=== PATIENT | female | born 1965 | race Caucasian/White ===

== ENCOUNTER 2021-03-01 21:22 | Emergency (ER) | payer OTHER, SELFPAY ==
[2021-03-01 21:30] VITALS: BP 111/51; BP 156/72; PULSE 67; PULSE 70; RESP 18; TEMP 36.4; O2SAT 98; O2SAT 99; BMI 34.7
--- NOTE | 2021-03-01 21:50 | ECG_ITS ---
Test Reason : SYNCOPE Blood Pressure : / mmHG Vent. Rate : 066 BPM Atrial Rate : 066 BPM P-R Int : 150 ms QRS Dur : 084 ms QT Int : 432 ms P-R-T Axes : 067 090 052 degrees QTc Int : 452 ms Normal sinus rhythm Rightward axis Borderline ECG No previous ECGs available Referred By: Mamie Wolfe Electronically Signed By:VICTORIA HAMMOND MD
--- NOTE | 2021-03-01 22:30 | ED_ITS ---
HPI - Syncope General Chief Complaint: Syncope Stated Complaint: syncope Time Seen by Provider: 03/01/21 21:50 Source: patient Mode of arrival: EMS History of Present Illness HPI narrative: This is a 56-year-old female with history of type 1 diabetes and hypertension who presents with having passed out in her kitchen. Patient is unsure if she hit her head but denies any blood thinner use. Patient states that she has been caring for her who was recently diagnosed with pancreatic cancer stage IV, she states she has not been drinking a lot of fluids, but denies any associated fevers, chills, speech/ visual/ hearing changes with this event and denies any unilateral weakness/numbness /tingling. Patient does states that immediately after her passing out episode she had 2-3 episodes of vomiting that have since stopped. She denies any abdominal pain, diarrhea, urinary pain/ burning/frequency. Related Data Previous Rx's Medication Instructions Recorded nitrofurantoin monohyd/m-cryst 100 mg PO Q12H 7 Days #14 cap 03/02/21 [Macrobid] Allergies Allergy/AdvReac Type Severity Reaction Status Date / Time codeine [CODEINE] AdvReac Mild NAUSEA & Verified 03/01/21 21:36 VOMITING Review of Systems Review of Systems: Pertinent positives and negatives as stated in HPI 10 point review of systems is otherwise negative. PMFSH Past Medical History Source: nursing notes reviewed Medical History Diabetes High cholesterol HTN (hypertension) Social History Social History Advance Directives: No Advance Directives Information Provided: Yes Patient : No Physical Exam Vital Signs: Vital Signs: Last Vital Signs Temp 97.8 F 03/02/21 00:00 Pulse 77 03/02/21 00:25 Resp 16 03/02/21 00:00 BP 178/69 H 03/02/21 00:25 Pulse Ox 99 03/02/21 00:00 Body Mass Index 34.7 VITAL SIGNS: Reviewed. GENERAL: Well developed, well nourished, in no acute distress. HEAD: Normocephalic/atraumatic, EYES: PERRLA, EOMI intact without pain, no nystagmus/pallor/icterus noted EARS: Ext canals without abnormality, TMs non-bulging and non-erythematous NOSE: Nares patent bilateral OROPHARYNX: no oral lesions noted, posterior pharynx clear and non-erythematous without noted tonsillar enlargement/erythema/exudates NECK: Supple, no adenopathy LUNGS: Normal breath sounds. No adventitious sounds or accessory muscle use. SpO2<98> CARDIOVASCULAR: Regular rate and rhythm without noted murmurs, no JVD or lower extremity edema. ABDOMEN: Soft, non-tender, non-distended with bowel sounds. MUSCULOSKELETAL: No tenderness, deformities, or effusions noted on gross inspection. EXTREMITIES: No cyanosis, clubbing or edema. SKIN: Inspection of the skin reveals no rashes, ulcerations, jaundice, pallor, or petechiae. NEUROLOGIC: Alert and oriented x 4. Strength and sensation to light touch were grossly intact x 4 , no facial asymmetry, no pronator drift, cranial nerves 2-12 are grossly intact. Course Course Course Narrative: This is a 56-year-old female with history and clinical presentation most consistent with vasovagal episode, but will rule out evidence of infectious/ anemia / arrhythmia in etiology. On review of all investigations and re-evaluation findings are consistent with a UTI and leukocytosis without left shift is likely reactive secondary to patient's vasovagal syncopal episode. All results and findings were discussed with the patient at bedside and she is feeling somewhat better after receiving IV fluid resuscitation. Patient otherwise discharged home in stable condition with remaining course of antibiotics and instructions to follow-up with her [facility] provider. MDM - Syncope Lab Data Result diagrams: 03/01/21 23:37 03/01/21 23:37 Labs: Lab Results 03/01/21 03/01/21 03/01/21 Range/Units 23:37 23:37 23:37 WBC 13.1 H (4.8-10.8) X10*3/uL RBC 4.15 L (4.20-5.50) X10*6/uL Hgb 13.1 (12.0-16.0) g/dl Hct 38.3 (37-47) % MCV 92.3 (80-98) fL MCH 31.6 (27.0-33.0) pg MCHC 34.2 (31.0-35.0) g/dl RDW 13.2 (11.0-16.0) % Plt Count 234 (160-400) X10*3/uL MPV 10.9 (9.4-12.3) fL Immature Gran % (Auto) 0.4 (0.0-0.4) % Neut % (Auto) 69.8 (45-73) % Lymph % (Auto) 20.0 (20-40) % [place] % (Auto) 8.4 (2-11) % Eos % (Auto) 0.8 (0-4) % Baso % (Auto) 0.6 (0-2) % Lymph # (Auto) 2.6 (1.2-4.9) X10*3/uL [place] # (Auto) 1.1 (0.1-1.2) X10*3/uL Eos # (Auto) 0.1 (0.0-0.4) X10*3/uL Baso # (Auto) 0.1 (0.0-0.2) X10*3/uL Abs Immat Gran (auto) 0.05 H (0.00-0.03) X10*3/uL Absolute Neuts (auto) 9.2 H (2.0-8.3) X10*3/uL Absolute Nucleated RBC 0.000 (0.0-0.012) X10*3/uL Nucleated RBC % (auto) 0.0 (0.0-0.2) /100WBC PT 11.8 (10.8-13.0) SEC INR 1.0 (0.9-1.1) Sodium 138 (135-145) mmol/L Potassium 3.4 (3.3-5.1) mmol/L Chloride 102 (96-108) mmol/L Carbon Dioxide 28 (22-29) mmol/L Anion Gap 11 L (12-20) BUN 12 (9-16) mg/dL Creatinine 0.84 (0.5-1.4) mg/dL Estim Creat Clear Calc 74.3 Estimated GFR > 60 Random Glucose 61 (60-115) mg/dL Calcium 9.6 (8.4-10.2) mg/dL Total Bilirubin 0.5 (0.0-1.0) mg/dL AST 17 (5-31) U/L ALT 12 (0-31) U/L Alkaline Phosphatase 77 (39-117) U/L Troponin I High Sens (<3.5-17.0) ng/L Total Protein 6.6 (6.5-8.0) g/dL Albumin 4.2 (3.5-5.0) g/dL Lipase 20 (8-78) U/L Urine Color Urine Appearance Urine pH (5.0-8.0) Ur Specific [place] (1.005-1.025) Urine Protein (NEG-TRACE) MG/DL Urine Glucose (UA) (NEG) MG/DL Urine Ketones (NEG) MG/DL Urine Blood (NEG) Urine Nitrite (NEG) Ur Leukocyte Esterase (NEG) Urine RBC (0) /HPF Urine WBC (0-4) /HPF Ur Squamous Epith Cells /LPF Urine Bacteria /LPF Urine Mucus /LPF Urine Opiates Screen (Not Detect) Ur Barbiturates Screen (Not Detect) Ur Phencyclidine Scrn (Not Detect) Ur Amphetamines Screen (Not Detect) U Benzodiazepines Scrn (Not Detect) Urine Cocaine Screen (Not Detect) U Marijuana (THC) Screen (Not Detect) Acetone, Qual Negative (Negative) 03/01/21 03/01/21 03/01/21 Range/Units 23:37 23:39 23:39 WBC (4.8-10.8) X10*3/uL RBC (4.20-5.50) X10*6/uL Hgb (12.0-16.0) g/dl Hct (37-47) % MCV (80-98) fL MCH (27.0-33.0) pg MCHC (31.0-35.0) g/dl RDW (11.0-16.0) % Plt Count (160-400) X10*3/uL MPV (9.4-12.3) fL Immature Gran % (Auto) (0.0-0.4) % Neut % (Auto) (45-73) % Lymph % (Auto) (20-40) % [place] % (Auto) (2-11) % Eos % (Auto) (0-4) % Baso % (Auto) (0-2) % Lymph # (Auto) (1.2-4.9) X10*3/uL [place] # (Auto) (0.1-1.2) X10*3/uL Eos # (Auto) (0.0-0.4) X10*3/uL Baso # (Auto) (0.0-0.2) X10*3/uL Abs Immat Gran (auto) (0.00-0.03) X10*3/uL Absolute Neuts (auto) (2.0-8.3) X10*3/uL Absolute Nucleated RBC (0.0-0.012) X10*3/uL Nucleated RBC % (auto) (0.0-0.2) /100WBC PT (10.8-13.0) SEC INR (0.9-1.1) Sodium (135-145) mmol/L Potassium (3.3-5.1) mmol/L Chloride (96-108) mmol/L Carbon Dioxide (22-29) mmol/L Anion Gap (12-20) BUN (9-16) mg/dL Creatinine (0.5-1.4) mg/dL Estim Creat Clear Calc Estimated GFR Random Glucose (60-115) mg/dL Calcium (8.4-10.2) mg/dL Total Bilirubin (0.0-1.0) mg/dL AST (5-31) U/L ALT (0-31) U/L Alkaline Phosphatase (39-117) U/L Troponin I High Sens < 3.5 (<3.5-17.0) ng/L Total Protein (6.5-8.0) g/dL Albumin (3.5-5.0) g/dL Lipase (8-78) U/L Urine Color YELLOW Urine Appearance CLEAR Urine pH 7.0 (5.0-8.0) Ur Specific [place] <= 1.005 (1.005-1.025) Urine Protein NEG (NEG-TRACE) MG/DL Urine Glucose (UA) 500 H (NEG) MG/DL Urine Ketones NEG (NEG) MG/DL Urine Blood TRACE (NEG) Urine Nitrite NEG (NEG) Ur Leukocyte Esterase TRACE H (NEG) Urine RBC 1-4 (0) /HPF Urine WBC 1-4 (0-4) /HPF Ur Squamous Epith Cells 2+ /LPF Urine Bacteria 2+ /LPF Urine Mucus 2+ /LPF Urine Opiates Screen Not Detected (Not Detect) Ur Barbiturates Screen Not Detected (Not Detect) Ur Phencyclidine Scrn Not Detected (Not Detect) Ur Amphetamines Screen Not Detected (Not Detect) U Benzodiazepines Scrn Not Detected (Not Detect) Urine Cocaine Screen Not Detected (Not Detect) U Marijuana (THC) Screen POSITIVE H (Not Detect) Acetone, Qual (Negative) ECG Data Attestation: I personally reviewed and interpreted this ECG as follows: Prior ECG tracings: not available for review Interpretation: Normal sinus rhythm, HR - 66, no evidence of acute ischemia, NE / QRS/ QTC are within normal limits. Discharge Plan Discharge Clinical Impression: Vasovagal syncope, UTI (urinary tract infection) Patient Disposition: Home, Self-Care Instructions: Urinary Tract Infection in Women (ED), Syncope (ED) Additional Instructions: 1 Resume all home medications as prescribed. 2. Follow-up with your primary care provider in the next 2-3 days for re- evaluation. Return to the ER for acute worsening of your symptoms. Prescriptions: New nitrofurantoin monohyd/m-cryst [Macrobid] 100 mg capsule 100 mg PO Q12H 7 Days Qty: 14 RF: 0 Referrals: John Griffiths MD [Primary Care Provider] - 2 days ( Re-evaluation after seen in the ER for vasovagal syncopal episode and diagnosed with UTI.)
[2021-03-01] MEDS: 0.9 % Sodium Chloride 2,000 ML 999 ML IV (23:40)
[2021-03-01 23:44] LABS: Basophils Absolute Auto 0.1 X10*3/uL (0.0-0.2); Basophils Percent Auto 0.6 % (0-2); Eosinophils Absolute Auto 0.1 X10*3/uL (0.0-0.4); Eosinophils Percent Auto 0.8 % (0-4); Hematocrit 38.3 % (37-47); Hemoglobin 13.1 g/dl (12.0-16.0); Imm Gran Abs Auto 0.05 X10*3/uL (0.00-0.03); Imm Gran Pct Auto 0.4 % (0.0-0.4); Lymphocytes Absolute Auto 2.6 X10*3/uL (1.2-4.9); Mean Corpuscular HGB Conc 34.2 g/dl (31.0-35.0); Mean Corpuscular Hemoglobin 31.6 pg (27.0-33.0); Mean Corpuscular Volume 92.3 fL (80-98); Mean Platelet Volume 10.9 fL (9.4-12.3); Monocytes Absolute Auto 1.1 X10*3/uL (0.1-1.2); Monocytes Percent Auto 8.4 % (2-11); Neutrophils Absolute Auto 9.2 X10*3/uL (2.0-8.3); Neutrophils Percent Auto 69.8 % (45-73); Platelet Count 234 X10*3/uL (160-400); Red Blood Count 4.15 X10*6/uL (4.20-5.50); Red Cell Distribution Width 13.2 % (11.0-16.0); White Blood Count 13.1 X10*3/uL (4.8-10.8)
[2021-03-01 23:46] LABS: MANUAL DIFF FLAG NO
[2021-03-01 23:47] LABS: Glucose Urine UA 500 MG/DL (NEG); Leukocyte Esterase Urine TRACE (NEG); Nitrite Urine NEG (NEG); Specific Gravity - Urine <= 1.005 (1.005-1.025); UACC Culture Trigger YES; Urine Blood TRACE (NEG); Urine Ketones NEG (NEG); Urine Protein NEG (NEG-TRACE)
[2021-03-01 23:52] LABS: Appearance Urine CLEAR; Color Urine YELLOW
[2021-03-01 23:54] LABS: Prothrombin Time 11.8 SEC (10.8-13.0)
[2021-03-01 23:55] LABS: Bacteria Urine 2+ /LPF; Mucus Urine 2+ /LPF; Squamous Epithelial Cell Urine 2+ /LPF
[2021-03-02] VITALS: BP 177/69; PULSE 77; RESP 16; TEMP 36.6; O2SAT 99
[2021-03-02 00:02] LABS: Acetone, serum QL Negative (Negative)
[2021-03-02 00:11] LABS: Amphetamine Screen Urine Not Detected (Not Detect); Barbiturates, Urine Not Detected (Not Detect); Benzodiazepines Screen Urine Not Detected (Not Detect); Cannabinoid Screen Urine POSITIVE (Not Detect); Cocaine Screen Urine Not Detected (Not Detect); Opiate Screen Urine Not Detected (Not Detect); Phencyclidine Screen Urine Not Detected (Not Detect)
[2021-03-02 00:13] LABS: Alanine Aminotransferase 12 U/L (0-31); Albumin Level 4.2 g/dL (3.5-5.0); Alkaline Phosphatase 77 U/L (39-117); Anion Gap 11 (12-20); Aspartate Amino Transferase 17 U/L (5-31); Bilirubin Total 0.5 mg/dL (0.0-1.0); Blood Urea Nitrogen 12 mg/dL (9-16); Calcium 9.6 mg/dL (8.4-10.2); Carbon Dioxide 28 mmol/L (22-29); Chloride 102 mmol/L (96-108); Creatinine Clr Calc Pharmacy 74.3; Estimated Glomerular Filt Rate > 60; Glucose Random 61 mg/dL (60-115); Lipase 20 U/L (8-78); Potassium 3.4 mmol/L (3.3-5.1); Sodium 138 mmol/L (135-145); Total Protein 6.6 g/dL (6.5-8.0)
[2021-03-02 00:14] LABS: Troponin-I High Sensitivity < 3.5 ng/L (<3.5-17.0)
[2021-03-02 00:21] VITALS: BP 157/67; PULSE 73
[2021-03-02 00:23] VITALS: BP 181/78; PULSE 74
[2021-03-02 00:25] VITALS: BP 178/69; PULSE 77
[2021-03-02] MEDS: Nitrofurantoin Monohyd/M-Cryst 100 MG CAPSULE PO (01:59)
== END 2021-03-02 02:10 | disposition home or self-care (01) ==
PROVIDERS: Emergency Provider Student in an Organized Health Care Education/Training Program; PCP Internal Medicine
DX: R55 Syncope and collapse (principal); N39.0 Urinary tract infection, site not specified; E10.9 Type 1 diabetes mellitus without complications; I10 Essential (primary) hypertension
CPT/HCPCS: 36415; 80053; 80307; 81001; 81003; 82009; 83690; 84484; 85025; 85610; 87086; 93005; 96360; 99284

== ENCOUNTER 2021-05-30 08:40 | Outpatient (REF) | payer OTHER, SELFPAY ==
--- NOTE | ~2021-05-30 | MM_ITS ---
EXAMINATION: MM SCREENING DIGITAL BREAST TOMOSYNTHESIS, BILATERAL CLINICAL INFORMATION: Screening. Asymptomatic. The lifetime risk of breast cancer based on the Tyrer-Cuzick Model is 9%. COMPARISON: Mammography: 02/16/2020, 02/10/2019, 12/18/2017 TECHNIQUE: Digital breast tomosynthesis is performed in both the craniocaudal and mediolateral oblique views along with computer-aided detection (CAD). Synthesized 2D images are generated from the tomosynthesis. FINDINGS: There are scattered areas of fibroglandular density (ACR BI-RADS breast composition Category b). There are no significant masses, abnormal calcifications, or other abnormalities. There are 2 biopsy clip markers central mid left breast, 1 overlying a stable circumscribed nodule. Small circumscribed dermal lesion overlies the posterior outer left breast on MLO view. The axilla are unremarkable. MM/MM tomosynthesis screening BI IMPRESSION: No mammographic evidence of malignancy. ASSESSMENT: BI-RADS 2: Benign RECOMMENDATION: Routine annual mammography screening. This patient's information was entered into a reminder system with a target due date for their next mammogram.
== END 2021-05-30 08:41 | disposition home or self-care (01) ==
LOC: HO.MAMMO 08:40
PROVIDERS: Visit Provider Internal Medicine
DX: Z12.31 Encounter for screening mammogram for malignant neoplasm of breast (principal)
CPT/HCPCS: 77063; 77067

== ENCOUNTER 2022-06-05 07:50 | Outpatient (REF) | payer OTHER, SELFPAY ==
--- NOTE | ~2022-06-05 | MM_ITS ---
EXAMINATION: MM SCREENING DIGITAL BREAST TOMOSYNTHESIS, BILATERAL CLINICAL INFORMATION: Screening. Asymptomatic. The lifetime risk of breast cancer based on the Tyrer-Cuzick Model is 8%. COMPARISON: Mammography: 05/30/2021, 02/16/2020, 02/10/2019 TECHNIQUE: Digital breast tomosynthesis is performed in both the craniocaudal and mediolateral oblique views along with computer-aided detection (CAD). Synthesized 2D images are generated from the tomosynthesis. FINDINGS: There are scattered areas of fibroglandular density (ACR BI-RADS breast composition Category b). Parenchymal pattern is similar to prior studies. No developing density or interval architectural abnormality. Left breast has 2 biopsy clip markers and a stable nodule central breast similar to prior studies. Right breast has calcifications anterior 11:30 position, questionably increased versus digital processing artifact pseudo calcification. Patient will be recalled for additional imaging on the right with magnification views. The axilla and skin contours are unremarkable. MM/MM tomosynthesis screening BI IMPRESSION: Right: -Fine increased calcifications versus digital processing artifact pseudo calcification 11:30. Left: -No mammographic evidence of malignancy. ASSESSMENT: BI-RADS 0: Incomplete - Need Additional Imaging Evaluation RECOMMENDATION: 1. Additional views of the right breast (magnification CC, magnification ML). 2. Radiology department staff will contact the patient for additional imaging. This patient's information was entered into a reminder system with a target due date for their next mammogram.
== END 2022-06-05 07:51 | disposition home or self-care (01) ==
LOC: HO.MAMMO 07:50
PROVIDERS: Visit Provider Internal Medicine
DX: Z12.31 Encounter for screening mammogram for malignant neoplasm of breast (principal)
CPT/HCPCS: 77063; 77067

== ENCOUNTER 2022-06-18 09:09 | Outpatient (REF) | payer OTHER, SELFPAY ==
--- NOTE | ~2022-06-18 | MM_ITS ---
EXAMINATION: MM DIAGNOSTIC DIGITAL MAMMOGRAPHY, RIGHT CLINICAL INFORMATION: Recall from screening for calcifications upper outer right breast. TC score 8%. COMPARISON: Mammography: 06/05/2022, 05/30/2021, 02/16/2020 TECHNIQUE: Digital mammography is performed in the following views: Magnification CC, magnification ML x2. FINDINGS: There are scattered areas of fibroglandular density (ACR BI-RADS breast composition Category b). The additional magnification views show a few punctate uniform calcifications adjacent to 2 larger coarse calcifications in the area of interest circular lesion arranged on CC view. There are a few faint calcifications more laterally. Results are discussed with the patient at time of visit. The calcifications for recall may represent early fibroadenomatous change. In addition, patient describes recent significant trauma right chest with upper extremity fracture and right breast ecchymosis October 2021. Calcifications are probably benign and will be reassessed again in 6 months to include magnification views. MM/MM added views RT IMPRESSION: Probable benign calcifications upper outer right breast. ASSESSMENT: BI-RADS 3: Probably Benign RECOMMENDATION: Diagnostic right mammography in 6 months. This patient's information was entered into a reminder system with a target due date for their next mammogram.
== END 2022-06-18 09:10 | disposition home or self-care (01) ==
LOC: HO.MAMMO 09:09
PROVIDERS: PCP Internal Medicine; Visit Provider Internal Medicine
DX: R92.1 Mammographic calcification found on diagnostic imaging of breast (principal)
CPT/HCPCS: 77065

== ENCOUNTER 2022-12-18 14:10 | Outpatient (REF) | payer OTHER, SELFPAY ==
--- NOTE | ~2022-12-18 | MM_ITS ---
EXAMINATION: MM DIAGNOSTIC DIGITAL BREAST TOMOSYNTHESIS, RIGHT CLINICAL INFORMATION: Six-month follow-up right breast calcifications. The lifetime risk of breast cancer based on the Tyrer-Cuzick Model is 8.5%. COMPARISON: Mammography: 06/18/2022 and studies dating back to 01/11/2014. TECHNIQUE: Digital breast tomosynthesis is performed in both the craniocaudal and mediolateral oblique views along with computer-aided detection (CAD). Synthesized 2D images are generated from the tomosynthesis. Additional spot magnification views of the right breast in craniocaudal and 90 degree mediolateral views performed. FINDINGS: There are scattered areas of fibroglandular density (ACR BI-RADS breast composition Category b). There are no new significant masses, abnormal calcifications, or other abnormalities. Calcifications about the upper outer aspect of the right breast are stable. Results are provided to the patient at time of visit by the technologist. MM/MM tomosynthesis diagnostic RT IMPRESSION: There are no significant changes from prior study. ASSESSMENT: BI-RADS 3: Probably Benign. RECOMMENDATION: Diagnostic mammography in 6 months. Magnification views of the right breast at time of study. This patient's information was entered into a reminder system with a target due date for their next mammogram.
== END 2022-12-18 14:11 | disposition home or self-care (01) ==
LOC: HO.MAMMO 14:10
PROVIDERS: Visit Provider Internal Medicine
DX: R92.1 Mammographic calcification found on diagnostic imaging of breast (principal)
CPT/HCPCS: 77061; 77065

== ENCOUNTER 2023-07-10 09:13 | Outpatient (REF) | payer OTHER, SELFPAY ==
--- NOTE | ~2023-07-10 | MM_ITS ---
EXAMINATION: MM DIAGNOSTIC DIGITAL BREAST TOMOSYNTHESIS, BILATERAL CLINICAL INFORMATION: 6 month (second) Follow-up probably benign calcifications right breast upper outer quadrant, anterior depth. COMPARISON: Mammography: 12/18/2022, 06/18/2022, 06/05/2022, 05/30/2021, and dating back to 2018. TECHNIQUE: Digital breast tomosynthesis is performed in both the craniocaudal and mediolateral oblique views along with computer-aided detection (CAD). Synthesized 2D images are generated from the tomosynthesis. In addition to standard views, 2-D spot magnification CC and MLO views were performed of the right breast. FINDINGS: There are scattered areas of fibroglandular density (ACR BI-RADS breast composition Category b). Calcifications in the anterior one third right breast, upper outer quadrant, are complete in an entirely unchanged and has a morphology suggesting benign etiology, with some large coarse forms, and tiny punctate round forms. These are unchanged in size and morphology and number since the prior examination. 1 year follow-up recommended at this point to ensure stability for a two-year time. Otherwise, there are 2 benign biopsy clips in the central left breast. There are no suspicious masses, suspicious grouped calcifications, or areas of architectural distortion in either breast. The parenchymal pattern is stable from prior exams. MM/MM tomosynthesis diagnostic BI IMPRESSION: There are no significant changes from prior study. There are no findings suspicious for malignancy in either breast. There are stable probably benign calcifications in the upper outer right breast, anterior one third. 1 year follow-up diagnostic mammography recommended to ensure stability, to include standard magnification views. ASSESSMENT: BI-RADS BI-RADS 3 - Probably benign finding(s) - 12 month follow-up suggested RECOMMENDATION: 12 month diagnostic follow up Results were provided to the patient at time of visit by the technologist. This patient's information was entered into a reminder system with a target due date for their next mammogram.
== END 2023-07-10 09:14 | disposition home or self-care (01) ==
LOC: HO.MAMMO 09:13
PROVIDERS: PCP Internal Medicine; Visit Provider Internal Medicine
DX: R92.1 Mammographic calcification found on diagnostic imaging of breast (principal)
CPT/HCPCS: 77062; 77066

== ENCOUNTER → 2023-07-10 09:30 | Outpatient (BNV) | payer OTHER, SELFPAY | PROVIDERS: PCP Internal Medicine; Visit Provider Radiology Diagnostic Radiology | DX: R92.1 Mammographic calcification found on diagnostic imaging of breast (principal) | CPT/HCPCS: 77062; 77066 ==

== ENCOUNTER 2024-04-20 14:55 | Outpatient (AMB) | payer OTHER, SELFPAY ==
--- NOTE | 2024-04-20 15:01 | MHC.PC.OV ---
Vital Signs 04/20/24 15:13 04/20/24 15:14 Height 5 ft 2.2 in Weight 202 lb 2 oz BMI 36.7 BP 142/72 H 144/76 H Blood Pressure Location Lt brachial Lt brachial Position Sitting Sitting Respiration 16 Pulse 70 Pulse Source Pulse Oximeter Temp 98.1 F Temp Source Oral Pulse Oximetry (%) 99 Oxygen Delivery Method Room Air Intake Visit Reasons: Establish Care not a transfer Intake Note: New patient visit Allergies codeine [CODEINE] Adverse Reaction (Mild, Verified 04/20/24 15:05) NAUSEA & VOMITING Tobacco use date assessed: 04/20/24 Dental Screening Dental Screen Date: 04/20/24 Did you have a dental visit in the last 12 months?: Yes Did you have a dental problem in the last 6 months where you did not have access to dental care?: No Was dental information given to patient?: Patient has dentist HPI HPI Comments History of Present Illness Details This is a 59-year-old female with a past medical history of type 1 diabetes, diabetic neuropathy, hyperlipidemia, hypertension and obesity presenting to [facility]. She transferred from [facility] because they no longer take her insurance. The patient's sister is also being seen today who is a nurse in [facility] pulmonology. Patient says the last several years have been difficult. Her from pancreatic cancer after 2 years fighting the illness. This was during the pandemic. She also broke her right shoulder a couple years ago after a fall. The patient was diagnosed with type 1 diabetes 32 years ago. Her current regimen is Lantus 24 units at night and NovoLog sliding scale 14-18 units with meals. Her last hemoglobin A1c was 8.3% per patient. Patient says this is usually her baseline. She denies hypoglycemic episodes within the past month. Her average glucose during the past week was 150. She has eye exams regularly, and she denies retinopathy. No macrovascular complications. She has neuropathy in her hands and feet. She was followed by endocrinology at [facility]. She needs a referral to a new public works commissioner. She uses a fingerstick glucometer. Patient says she is stubborn, and she is not interested in CGM right now. She has tried pumps a couple of times over the years, but she prefers her current regimen. Hypertension is treated with lisinopril which was increased to 40 mg after her last visit at [place]. Her blood pressure today is 144/76. This has improved. She does not want make further medication changes right now. Hyperlipidemia is treated with 40 mg of simvastatin. Anxiety is treated with sertraline. She thinks she is taking half a 100 mg tablet. She has been tapering off of it over the past 2 and half months. She takes Xanax very infrequently. She endorses a red itchy spot on the back of her right lower leg that has been there all summer. She is unsure if it has gotten larger. She has not tried medications for it. Patient says mammogram is up-to-date. She has never had a colonoscopy. She is thinking about it. We also discussed Cologuard. She defers further discussion until her follow-up visit. ROS: Constitutional: No unexplained weight loss, fever, chills, fatigue or night sweats. Eyes: No vision changes Respiratory: No shortness of breath, cough or sputum production. Cardiovascular: No chest pain, chest pressure or chest discomfort. No palpitations or pedal edema. Gastrointestinal: No anorexia, nausea, vomiting or diarrhea. No abdominal pain or blood in stool. Neurologic: No headache, dizziness, syncope Endocrine: No cold or heat intolerance. No polyuria or polydipsia. Skin: approximately 3 inch annual erythematous lesion with some central clearing and scaly borders on the back of the right lower leg Psychiatric: No depression or anxiety. No SI/HI. Physical exam: Constitutional: Alert, in no distress. Head: Normocephalic. Eyes: Pupils are equal, round and reactive to light. Extraocular muscles intact. Neck: Supple, Full range of motion. No lymphadenopathy. Respiratory: Clear to auscultation. Cardiovascular: S1 S2 regular. No murmurs. Extremities: Warm and well perfused. No clubbing, cyanosis or edema. Psychiatric: Normal mood and affect [facility] Medical History (Updated 04/21/24 @ 09:32 by SUNITA Mathis) Skin rash Pure hypercholesterolemia Obesity with serious comorbidity Diabetes, polyneuropathy Anxiety Type I diabetes with complications Arthritis HTN (hypertension) Family History (Updated 04/21/24 @ 09:28 by SUNITA Mathis) Mother HTN (hypertension) Thyroid disorder Father HTN (hypertension) Cardiovascular disease Clotting disorder Stomach cancer Alcoholism Sister Primary biliary cholangitis Other High cholesterol Social History (Updated 04/20/24 @ 15:02 by Shyla Mccarty [facility]) Housing: House Patient Tobacco Use Status: Current everyday Tobacco user Cigarette Packs Per Day: 1 Years Smoked: 40 e-Cigarette/Vaping Use: Never Used Second Hand Smoke Exposure: No service: No Current occupational status: employed 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 1. Little interest or pleasure in doing things: several days 2. Feeling down, depressed, or hopeless: several days 3. Trouble falling or staying asleep, or sleeping too much: several days 4. Feeling tired or having little energy: several days 5. Poor appetite or overeating: several days 6. Feeling bad about yourself - or that you are a failure or have let yourself or your family down: not at all 7. Trouble concentrating on things, such as reading the newspaper or watching television: several days 8. Moving or speaking so slowly that other people could have noticed. Or the opposite - being so fidgety or restless that you have been moving around a lot more than usual: not at all 9. Thoughts that you would be better off or of hurting yourself in some way: not at all Total score: 6 Depression Screening Interpretation: Positive Depression Screening Done: Yes 03080 - PHQ-9 Billing: Yes Source: Developed by Drs. Taiwo Myers, Valentine Buckley, Jd Garcia and colleagues, with an educational rebeca from [employer]. Thrive Questionnaire Date Thrive assessed: 04/20/24 I am a: Patient What is your living situation today?: I have a steady place to live Within the past 12 months, did the food you bought not last and you didn't have the money to get more?: Never true Within the past 12 months, did you worry whether your food would run out before you got money to buy more?: Never true Do you have trouble paying for medicines?: No Do you have trouble getting transportation to medical appointments?: No Do you have trouble paying your heating and electricity bill?: No Do you have trouble taking care of your child, family member or friend?: No Do you have trouble with day-to-day activities such as bathing, preparing meals, shopping, managing finances, etc.?: No Are you currently unemployed and looking for a job?: No Are you interested in more education?: No Please select the resources that you would like help with: None Currently or been in a relationship where the following occur: No concerns reported THRIVE Score: 0 AUDIT C Alcohol Use Questionnaire (AUDIT-C) 1. How often do you have a drink containing alcohol?: Monthly or less 2. How many drinks containing alcohol do you have on a typical day when you are drinking?: 1 or 2 3. How often do you have six or more drinks on one occasion?: Never Total Score: 1 JUANITA-7 AMB Questionnaire JUANITA-7 Date JUANITA - 7 assessed: 04/20/24 Feeling nervous, anxious, or on edge: 1 = Several days Not being able to stop or control worryin = Several days Worrying too much about different things: 1 = Several days Trouble relaxin = Several days Being so restless that it is hard to sit still: 1 = Several days Becoming easily annoyed or irritable: 1 = Several days Feeling afraid as if something awful might happen: 1 = Several days Total JUANITA-7 score (0-4 normal; 5-9 mild; 10-14 moderate; 15-21 severe): 7 Source: Developed by Drs. Taiwo Myers, Valentine Buckley, Jd Garcia and colleagues, with an educational rebeca from [employer]. JUANITA-7 Assessment Billing JUANITA-7 Assessment Tool: JUANITA-7 Assessment 29424 Physical exam (Primary Care) Vital Signs: Last Vital Signs Temp 98.1 F 04/20/24 15:13 Pulse 70 04/20/24 15:13 Resp 16 04/20/24 15:13 BP 144/76 H 04/20/24 15:14 Pulse Ox 99 04/20/24 15:13 Oxygen Delivery Method Room Air 04/20/24 15:13 BMI result Body Mass Index 36.7 Tobacco/Smoking Status: Tobacco use Status Tobacco use date assessed 04/20/24 04/20/24 15:04 Patient Tobacco Use Status Current everyday Tobacco 04/20/24 15:16 e-Cigarette/Vaping Use Never Used 04/20/24 15:04 PHQ-9: PHQ-9 Score PHQ-9: Total score 6 04/20/24 16:53 Depression Screening Interpretation: Positive Thrive Assessment: Date of Thrive Assessment Date Thrive assessed 04/20/24 04/20/24 15:34 Currently or been in a relationship where the following occur: No concerns reported Assessment and Plan Assessment & Plan (1) Type I diabetes with complications: Code(s): E10.8 - Type 1 diabetes mellitus with unspecified complications Plan: Suboptimal control of longstanding type 1 diabetes. See above discussion regarding CGM. The patient says she may be persuaded to try this, but she deferred today. Referred to Kylah Contreras NP, at [facility] endocrinology. Continue current medication regimen. Diabetic labs ordered. (2) HTN (hypertension): Code(s): I10 - Essential (primary) hypertension Qualifiers: Hypertension type: primary hypertension Qualified Code(s): I10 - Essential (primary) hypertension Plan: Suboptimal BP. Patient declines additional medication. Continue lisinopril 40 mg daily. Agree to reassess in 3 months time. She will work on lifestyle modifications and weight loss. Recommended low-sodium diet and avoidance of caffeine. (3) Anxiety: Code(s): F41.9 - Anxiety disorder, unspecified Plan: She will call or send via patient portal the confirm dose of sertraline she is taking so I can give her further instructions on how to taper this medication. Reminded not to stop it abruptly. She did not need a refill on Xanax which she uses infrequently. (4) Pure hypercholesterolemia: Code(s): E78.00 - Pure hypercholesterolemia, unspecified Plan: Continue simvastatin. Check lipid profile. Patient cannot fast for labs. (5) Skin rash: Code(s): R21 - Rash and other nonspecific skin eruption Plan: Possible new eczema versus tinea corporis. Trial of Lotrisone twice daily for 14 days. If it does not resolve she will contact the office. Plan Follow-up in 3 months. Orders: Orders Lipid Panel 04/20/24 E11.9 - Type 2 diabetes mellitus without complications, E78.00 - Pure hypercholesterolemia, unspecified, I10 - Essential (primary) hypertension Hemoglobin A1c 04/20/24 E11.9 - Type 2 diabetes mellitus without complications, E78.00 - Pure hypercholesterolemia, unspecified, I10 - Essential (primary) hypertension Complete Blood Count no Diff 04/20/24 E11.9 - Type 2 diabetes mellitus without complications, E78.00 - Pure hypercholesterolemia, unspecified, I10 - Essential (primary) hypertension Comprehensive Met. Panel 04/20/24 E11.9 - Type 2 diabetes mellitus without complications, E78.00 - Pure hypercholesterolemia, unspecified, I10 - Essential (primary) hypertension TSH reflex Free T4 04/20/24 E11.9 - Type 2 diabetes mellitus without complications, E66.9 - Obesity, unspecified, E78.00 - Pure hypercholesterolemia, unspecified, I10 - Essential (primary) hypertension Vitamin D 1,25 dihydroxy 04/20/24 E11.9 - Type 2 diabetes mellitus without complications, E78.00 - Pure hypercholesterolemia, unspecified, I10 - Essential (primary) hypertension Referrals Endocrinology Referral E10.8 - Type 1 diabetes mellitus with unspecified complications Medications: New clotrimazole-betamethasone 1-0.05 % 1 appl topical BID 15 grams 0RF 14 days lisinopril 40 mg PO DAILY 90 tabs 3RF Coding Level of Care Code New Pt Level 4 (63382) Complex EM visit Add On G2211 Diagnoses Type I diabetes with complications E10.8 Primary hypertension I10 Hypertension type: primary hypertension Anxiety F41.9 Pure hypercholesterolemia E78.00 Skin rash R21 Additional Codes JUANITA-7 Assessment Billing - JUANITA-7 Assessment Tool: JUANITA-7 Assessment [id number] ([id number])
[2024-04-20 15:13] VITALS: BP 142/72; PULSE 70; RESP 16; TEMP 36.7; O2SAT 99; BMI 36.7
[2024-04-20 15:14] VITALS: BP 144/76
== END 2024-04-20 16:05 | disposition home or self-care (01) ==
PROVIDERS: PCP Physician Assistant Medical; Visit Provider Physician Assistant Medical
DX: E10.8 Type 1 diabetes mellitus with unspecified complications (principal); I10 Essential (primary) hypertension; F41.9 Anxiety disorder, unspecified; E78.00 Pure hypercholesterolemia, unspecified; R21 Rash and other nonspecific skin eruption
CPT/HCPCS: 99204; G2211

== ENCOUNTER 2024-06-22 08:43 | Outpatient (AMB) | payer OTHER, SELFPAY ==
--- NOTE | 2024-06-22 08:53 | A.OFFPC_ITS ---
Vital Signs 06/22/24 08:57 Height 5 ft 2.2 in Weight 195 lb 2 oz BMI 35.5 BP 124/70 Blood Pressure Location Rt brachial Position Sitting Pulse 95 Pulse Source Pulse Oximeter Pulse Oximetry (%) 99 Oxygen Delivery Method Room Air Intake Visit Reasons: Urgent Care / F/U for broken ribs Intake Note: Urgent care follow up Allergies codeine [CODEINE] Adverse Reaction (Mild, Verified 06/22/24 08:55) NAUSEA & VOMITING Tobacco use date assessed: 04/20/24 Dental Screening Dental Screen Date: 04/20/24 HPI HPI Comments History of Present Illness Details This is a 59-year-old female with a past medical history of type 1 diabetes, hypertension, tobacco use disorder, diabetic polyneuropathy and hypercholesterolemia presenting for an urgent care follow up. [facility] for evaluation of a fall that occurred on 06/12/2024. The patient was outside raking and was holding a rake and trash barrel and went to turn when she fell onto her right side. She thinks the rate may have hit her back and ribs. No head injury or loss of consciousness. The radiologist's reading of the x-ray said there was no rib fracture, but the physician said it looked like there were fractures, and the films were reviewed by a different radiologist and read as displaced right posterior 6th and 7th rib fractures. They told her to go to the ER for CT scan, but she declined. She was given a work note to be out until 06/19/2024. 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 She would like to return. Her pain is a 9/10. She was prescribed cyclobenzaprine, tramadol, ibuprofen and gabapentin. She is taking 100 mg of gabapentin 3 times a day. She is not sure it is really helping her. Patient is using an [id number] stool softener due to constipation on medications. She also had to take a laxative 1 day last week. She is a smoker. She has never had a bone density exam. She had a right shoulder fracture a few years ago. She is doing spirometry at home. No cough, wheezing, shortness of breath, fevers, chills or hemoptysis. The patient started smoking at age 13. She has smoked half a pack to a full pack daily since then. She continues to see endocrinology at [facility]. Patient says her blood sugars have been under 200. ROS: Constitutional: No unexplained weight loss, fever, chills, fatigue or night sweats. Respiratory: No shortness of breath, cough or sputum production. Cardiovascular: No chest pain, no pedal edema. Gastrointestinal: No abdominal pain Neurologic: No numbness or tingling, no headache or loss of consciousness. Skin: No redness or bruising. Physical exam: Constitutional: Alert, in no distress. Respiratory: Clear to auscultation. Cardiovascular: S1 S2 regular. No murmurs Neurologic: No focal neurological deficits Musculoskeletal: Tender over the right posterior lower ribs. No edema, erythema or ecchymosis. [facility] Medical History (Updated 06/22/24 @ 09:50 by SUNITA Mathis) Tobacco use disorder Closed traumatic displaced fracture of rib Skin rash Pure hypercholesterolemia Obesity with serious comorbidity Diabetes, polyneuropathy Anxiety Type I diabetes with complications Arthritis HTN (hypertension) Family History (Updated 04/21/24 @ 09:28 by SUNITA Mathis) Mother HTN (hypertension) Thyroid disorder Father HTN (hypertension) Cardiovascular disease Clotting disorder Stomach cancer Alcoholism Sister Primary biliary cholangitis Other High cholesterol Social History (Updated 04/20/24 @ 15:02 by Shyla Mccarty CMA) Housing: House Patient Tobacco Use Status: Current everyday Tobacco user Cigarette Packs Per Day: 1 Years Smoked: 40 e-Cigarette/Vaping Use: Never Used Second Hand Smoke Exposure: No service: No Current occupational status: employed 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 1. Little interest or pleasure in doing things: not at all 2. Feeling down, depressed, or hopeless: several days 3. Trouble falling or staying asleep, or sleeping too much: several days 4. Feeling tired or having little energy: several days 5. Poor appetite or overeating: several days 6. Feeling bad about yourself - or that you are a failure or have let yourself or your family down: not at all 7. Trouble concentrating on things, such as reading the newspaper or watching television: not at all 8. Moving or speaking so slowly that other people could have noticed. Or the opposite - being so fidgety or restless that you have been moving around a lot more than usual: not at all 9. Thoughts that you would be better off or of hurting yourself in some way: not at all Total score: 4 Source: Developed by Drs. Taiwo Myers, Valentine Buckley, Jd Garcia and colleagues, with an educational rebeca from [employer]. Thrive Questionnaire Date Thrive assessed: 06/19/24 I am a: Patient What is your living situation today?: I have a steady place to live Within the past 12 months, did the food you bought not last and you didn't have the money to get more?: Never true Within the past 12 months, did you worry whether your food would run out before you got money to buy more?: I choose not to answer this question Do you have trouble paying for medicines?: I choose not to answer this question Do you have trouble getting transportation to medical appointments?: I choose not to answer this question Do you have trouble paying your heating and electricity bill?: No Do you have trouble taking care of your child, family member or friend?: I choose not to answer this question Do you have trouble with day-to-day activities such as bathing, preparing meals, shopping, managing finances, etc.?: No Are you currently unemployed and looking for a job?: I choose not to answer this question Are you interested in more education?: I choose not to answer this question Please select the resources that you would like help with: None Currently or been in a relationship where the following occur: No concerns reported THRIVE Score: 0 AUDIT C Alcohol Use Questionnaire (AUDIT-C) 1. How often do you have a drink containing alcohol?: Monthly or less 2. How many drinks containing alcohol do you have on a typical day when you are drinking?: 1 or 2 3. How often do you have six or more drinks on one occasion?: Never Total Score: 1 JUANITA-7 AMB Questionnaire JUANITA-7 Date JUANITA - 7 assessed: 04/20/24 Feeling nervous, anxious, or on edge: 0 = Not at all Not being able to stop or control worryin = Not at all Worrying too much about different things: 0 = Not at all Trouble relaxin = Not at all Being so restless that it is hard to sit still: 0 = Not at all Becoming easily annoyed or irritable: 0 = Not at all Feeling afraid as if something awful might happen: 0 = Not at all Total JUANITA-7 score (0-4 normal; 5-9 mild; 10-14 moderate; 15-21 severe): 0 Source: Developed by Drs. Taiwo Myers, Valentine Buckley, Jd Garcia and colleagues, with an educational rebeca from [employer]. Physical exam (Primary Care) Vital Signs: Last Vital Signs Pulse 95 06/22/24 08:57 BP 124/70 06/22/24 08:57 Pulse Ox 99 06/22/24 08:57 Oxygen Delivery Method Room Air 06/22/24 08:57 BMI result Body Mass Index 35.5 Tobacco/Smoking Status: Tobacco use Status Tobacco use date assessed 04/20/24 06/22/24 08:55 Patient Tobacco Use Status Current everyday Tobacco 06/22/24 08:55 e-Cigarette/Vaping Use Never Used 06/22/24 08:55 PHQ-9: PHQ-9 Score PHQ-9: Total score 4 06/22/24 08:55 Thrive Assessment: Date of Thrive Assessment Date Thrive assessed 06/19/24 06/22/24 08:55 Currently or been in a relationship where the following occur: No concerns reported Coding Level of Care Code Est Pt Level 4 (94240) Complex EM visit Add On G2211 Diagnoses Closed traumatic displaced fracture of rib S22.39XA Tobacco use disorder F17.200 Type I diabetes with complications E10.8 Assessment & Plan Assessment & Plan (1) Closed traumatic displaced fracture of rib: Comment: Right 6 and 7th ribs Code(s): S22.39XA - Fracture of one rib, unspecified side, initial encounter for closed fracture Category: Medical Plan: Patient is hemodynamically stable. Her pulse ox is 99%. Her lungs are clear to auscultation. No evidence of complications on exam. Advised patient I do recommend CT scandue to displaced rib fractures and risk of complications which could be higher in patient with diabetes and tobacco use. I also advised CT scan since she is a long time smoker to rule out malignancy as an underlying cause of pathologic fracture. Patient declined at this time. If she develops shortness of breath, increased pain, lethargy, cough or other new symptoms she will go to the ER. I recommended consult with thoracic surgery for displaced rib fractures. She declined. Continue spirometry. 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 Restrictions on letter until medically cleared. We will discontinue tramadol as there is a potential drug interaction with sertraline. She did not want hydrocodone or oxycodone for pain control. She says that the reaction to codeine was when she was a teenager and had her wisdom teeth removed and she had nausea and vomiting, but she does not know if it was just because she had had her teeth pulled and was not feeling well. She wants to retry the medication. No history of anaphylaxis or IgE mediated symptoms. Patient advised it is a controlled substance which is sedating. Do not drive, operate heavy machinery or drink alcohol with this type of medication. She can increase gabapentin to 300 mg 3 times a day as needed for rib pain. I refilled her cyclobenzaprine. Reviewed both medications are also sedating and advised not to drive or operate heavy machinery on these medications. Advised patient not to exceed 3000 mg of acetaminophen from all sources. I will request a follow up x-ray when I see her back in a few weeks. Ordered bone density exam. (2) Tobacco use disorder: Code(s): F17.200 - Nicotine dependence, unspecified, uncomplicated Category: Medical Plan: Strongly recommended cessation. Patient declines at this time. We also discussed LDCT. Patient says her sister who is in the medical field has also recommended this, but she declines it at this time. (3) Type I diabetes with complications: Code(s): E10.8 - Type 1 diabetes mellitus with unspecified complications Category: Medical Plan: Continue management per endocrinology. She is followed at [facility]. Plan Follow up in 3 weeks for recheck. Orders: Orders XR DEXA axial skeleton Today N95.1 - Menopausal and female climacteric states Medications: New acetaminophen-codeine 300-30 mg Do not exceed 3000mg of acetaminophen within a 24 hour period from all sources. 1 tab PO Q8H PRN 20 tabs 0RF pain omeprazole 20 mg PO DAILY 90 caps 0RF gabapentin 300 mg PO TID 30 days PRN 90 caps 0RF rib pain
[2024-06-22 08:57] VITALS: BP 124/70; PULSE 95; O2SAT 99; BMI 35.5
== END 2024-06-22 09:32 | disposition home or self-care (01) ==
PROVIDERS: PCP Physician Assistant Medical; Visit Provider Physician Assistant Medical
DX: S22.39XA Fracture of one rib, unspecified side, initial encounter for closed fracture (principal); F17.200 Nicotine dependence, unspecified, uncomplicated; E10.8 Type 1 diabetes mellitus with unspecified complications

== ENCOUNTER → 2024-06-22 08:43 | Outpatient (BNVA) | payer OTHER, SELFPAY | PROVIDERS: PCP Physician Assistant Medical; Visit Provider Physician Assistant Medical ==

== ENCOUNTER 2024-07-13 08:55 | Outpatient (AMB) | payer OTHER, SELFPAY ==
--- NOTE | 2024-07-13 08:58 | MHC.PC.OV ---
Vital Signs 07/13/24 09:01 07/13/24 09:06 Height 5 ft 2.2 in Weight 195 lb 8 oz BMI 35.5 BP 148/76 H 140/70 H Blood Pressure Location Lt brachial Lt brachial Position Sitting Sitting Pulse 104 H Pulse Source Pulse Oximeter Pulse Oximetry (%) 98 Oxygen Delivery Method Room Air Intake Visit Reasons: rib fracture follow up Intake Note: Follow up on rib fracture. Allergies codeine [CODEINE] Adverse Reaction (Mild, Verified 07/13/24 08:59) NAUSEA & VOMITING Tobacco use date assessed: 04/20/24 Dental Screening Dental Screen Date: 04/20/24 HPI HPI Comments History of Present Illness Details This is a 59-year-old female with a past medical history of type 1 diabetes, hypertension, tobacco use disorder, diabetic polyneuropathy and hypercholesterolemia presenting for follow up on her rib fractures. Documented 06/22/24: [facility] for evaluation of a fall that occurred on 06/12/2024. The patient was outside raking and was holding a rake and trash barrel and went to turn when she fell onto her right side. She thinks the rate may have hit her back and ribs. No head injury or loss of consciousness. The radiologist's reading of the x-ray said there was no rib fracture, but the physician said it looked like there were fractures, and the films were reviewed by a different radiologist and read as displaced right posterior 6th and 7th rib fractures. They told her to go to the ER for CT scan, but she declined. When I saw the patient we discussed CT scan and referral to thoracic surgery which she declined. She was continued on cyclobenzaprine, ibuprofen as needed and gabapentin with an increased dose of 300 mg 3 times a day. Tramadol was discontinued due to potential drug interaction with her SSRI. She did not end up picking the Tylenol with codeine up from the pharmacy. Her pain is improving. She says that she did too much over the weekend cleaning up leaves at her father's house. Sadly he this week after dealing with multiple medical conditions over the past few years. Her best friend's mother also 2 days later. The surfaces are this evening for her father. She is very well supported by family. She says she is doing okay. Patient also lost her last year to cancer. She is a smoker. She has never had a bone density exam. She had a right shoulder fracture a few years ago. Bone density exam was ordered at her last visit. She is doing spirometry at home. No cough, wheezing, shortness of breath, fevers, chills or hemoptysis. The patient started smoking at age 13. She has smoked half a pack to a full pack daily since then. She continues to decline CT screening for lung cancer. Her blood pressure is suboptimally controlled on her current regimen. She is compliant with her medications. She thinks her pain and the stress of the past week also contribute to it today, but she also says her home readings have not been less than 130/80. She continues to see endocrinology at [facility]. Patient says her blood sugars have been under 200. ROS: Constitutional: No unexplained weight loss, fever, chills, fatigue or night sweats. Respiratory: No shortness of breath, hemoptysis, cough or sputum production. Cardiovascular: No chest pain, no pedal edema. Gastrointestinal: No abdominal pain Neurologic: No numbness or tingling, no headache or loss of consciousness. Skin: No redness or bruising. Physical exam: Constitutional: Alert, in no distress. Respiratory: Clear to auscultation. Cardiovascular: S1 S2 regular. No murmurs Neurologic: No focal neurological deficits Musculoskeletal: Tender over the right posterior lower ribs. No edema, erythema or ecchymosis. [facility] Medical History (Updated 06/22/24 @ 09:50 by SUNITA Mathis) Tobacco use disorder Closed traumatic displaced fracture of rib Skin rash Pure hypercholesterolemia Obesity with serious comorbidity Diabetes, polyneuropathy Anxiety Type I diabetes with complications Arthritis HTN (hypertension) Family History (Updated 04/21/24 @ 09:28 by SUNITA Mathis) Mother HTN (hypertension) Thyroid disorder Father HTN (hypertension) Cardiovascular disease Clotting disorder Stomach cancer Alcoholism Sister Primary biliary cholangitis Other High cholesterol Social History (Updated 04/20/24 @ 15:02 by Shyla Mccarty CMA) Housing: House Patient Tobacco Use Status: Current everyday Tobacco user Cigarette Packs Per Day: 1 Years Smoked: 40 e-Cigarette/Vaping Use: Never Used Second Hand Smoke Exposure: No service: No Current occupational status: employed 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, 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 Current occupational exposures/hazards: No Cognitive needs: No Hearing needs: No Vision needs: Yes (glasses) Questionnaire Thrive Questionnaire Date Thrive assessed: 06/19/24 I am a: Patient What is your living situation today?: I have a steady place to live Within the past 12 months, did the food you bought not last and you didn't have the money to get more?: Never true Within the past 12 months, did you worry whether your food would run out before you got money to buy more?: I choose not to answer this question Do you have trouble paying for medicines?: I choose not to answer this question Do you have trouble getting transportation to medical appointments?: I choose not to answer this question Do you have trouble paying your heating and electricity bill?: No Do you have trouble taking care of your child, family member or friend?: I choose not to answer this question Do you have trouble with day-to-day activities such as bathing, preparing meals, shopping, managing finances, etc.?: No Are you currently unemployed and looking for a job?: I choose not to answer this question Are you interested in more education?: I choose not to answer this question Please select the resources that you would like help with: None Currently or been in a relationship where the following occur: No concerns reported THRIVE Score: 0 JUANITA-7 AMB Questionnaire JUANITA-7 Date JUANITA - 7 assessed: 04/20/24 Source: Developed by Drs. Taiwo Myers, Valentine Buckley, Jd Garcia and colleagues, with an educational rebeca from [employer]. Physical exam (Primary Care) Vital Signs: Last Vital Signs Pulse 104 H 07/13/24 09:01 BP 140/70 H 07/13/24 09:06 Pulse Ox 98 07/13/24 09:01 Oxygen Delivery Method Room Air 07/13/24 09:01 BMI result Body Mass Index 35.5 Tobacco/Smoking Status: Tobacco use Status Tobacco use date assessed 04/20/24 07/13/24 09:08 Patient Tobacco Use Status Current everyday Tobacco 07/13/24 09:08 e-Cigarette/Vaping Use Never Used 07/13/24 09:08 Thrive Assessment: Date of Thrive Assessment Date Thrive assessed 06/19/24 07/13/24 09:08 Currently or been in a relationship where the following occur: No concerns reported Coding Level of Care Code Est Pt Level 4 (41568) Complex EM visit Add On G2211 Diagnoses Closed traumatic displaced fracture of rib S22.39XA Tobacco use disorder F17.200 Type I diabetes with complications E10.8 Primary hypertension I10 Hypertension type: primary hypertension Assessment & Plan Assessment & Plan (1) Closed traumatic displaced fracture of rib: Comment: Right 6 and 7th ribs Code(s): S22.39XA - Fracture of one rib, unspecified side, initial encounter for closed fracture Category: Medical Plan: Patient agreeable to repeat x-ray to assess healing. Continue spirometry. Patient can continue cyclobenzaprine 10 mg 3 times a day as needed and gabapentin 300 mg 3 times a day as needed. She is also taking ibuprofen as needed. Ordered bone density exam on 06/22/2024. (2) Tobacco use disorder: Code(s): F17.200 - Nicotine dependence, unspecified, uncomplicated Category: Medical Plan: Strongly recommended cessation. Patient declines at this time. We also discussed LDCT. Patient says her sister who is in the medical field has also recommended this, but she declines it at this time. (3) Type I diabetes with complications: Code(s): E10.8 - Type 1 diabetes mellitus with unspecified complications Category: Medical Plan: Continue management per endocrinology. She is followed at [facility]. (4) HTN (hypertension): Code(s): I10 - Essential (primary) hypertension Category: Medical Qualifiers: Hypertension type: primary hypertension Qualified Code(s): I10 - Essential (primary) hypertension Plan: Patient declines change to her medication regimen. I recommend adding amlodipine. Patient says she will continue lisinopril 40 mg and try to work on lifestyle modifications once her stress level decreases. She is aware hypertension is known as the ?silent killer? and the risks of uncontrolled hypertension including heart attack, stroke, nephropathy, retinopathy. She agrees to revisit this after the holidays. Lifestyle modifications reviewed. Plan Follow up in 3 months. Orders: Orders XR ribs RT min 3V w CXR1V 07/13/24 S22.39XA - Fracture of one rib, unspecified side, initial encounter for closed fracture Medications: Changed From cyclobenzaprine 10 mg PO TID To cyclobenzaprine 10 mg PO TID 10 days PRN 30 tabs 0RF muscle spasm
[2024-07-13 09:01] VITALS: BP 148/76; PULSE 104; O2SAT 98; BMI 35.5
[2024-07-13 09:06] VITALS: BP 140/70
== END 2024-07-13 09:44 | disposition home or self-care (01) ==
PROVIDERS: PCP Physician Assistant Medical; Visit Provider Physician Assistant Medical
DX: S22.39XD Fracture of one rib, unspecified side, subsequent encounter for fracture with routine healing (principal); F17.210 Nicotine dependence, cigarettes, uncomplicated; E10.8 Type 1 diabetes mellitus with unspecified complications; I10 Essential (primary) hypertension

== ENCOUNTER → 2024-07-13 08:55 | Outpatient (BNVA) | payer OTHER, SELFPAY | PROVIDERS: PCP Physician Assistant Medical; Visit Provider Physician Assistant Medical ==

== ENCOUNTER 2024-07-22 08:27 | Outpatient (REF) | payer OTHER, SELFPAY ==
--- NOTE | ~2024-07-22 | MM_ITS ---
EXAMINATION: BONE DENSITOMETRY CLINICAL INDICATION: Menopause. COMPARISON: This is the patient's baseline examination. TECHNIQUE: Using a [employer] DXA System (software version: 13.1) manufactured by [employer], dual-energy x-ray absorptiometry was performed of the lumbar spine and left hip. The images are of good technical quality. Summary results are attached. FINDINGS: LEFT FEMUR, NECK: BMD 0.750 g/cm2, Z-score -1.3, T-score -2.1, osteopenia. LEFT FEMUR, TOTAL: BMD 0.715 g/cm2, Z-score -1.9, T-score -2.3, osteopenia. AP SPINE L1-L4 (excluding L2 and L3): The data of L1-L4 has been changed to exclude the L2 and L3 vertebral bodies, because significant degenerative change at these levels may cause overestimation of lumbar spine density. BMD 0.967 g/cm2, Z-score -1.2, T-score -1.7, osteopenia. IDENTIFIED RISK FACTORS: Menopause, history of fracture (adult), secondary osteoporosis, tobacco use (current smoker). HISTORY OF FRACTURE: Shoulder, other. MEDICATIONS: None listed. MM/XR DEXA axial skeleton IMPRESSION: 1. DIAGNOSIS: Osteopenia based on the lowest T-score value of -2.3 in the total femur applying World Health Organization criteria. 2. 10-YEAR FRACTURE RISK PREDICTION, FRAX: Major osteoporotic fracture (clinical spine, forearm, hip or shoulder) 16.5%. Hip fracture 3.8%. 3. Treatment Recommendations: NOF guidelines recommend consideration for treatment in postmenopausal women and men age 50 and older presenting with the following: -A hip or vertebral (clinical or morphometric) fracture. -T-score less than or equal to -2.5 at the femoral neck or spine after appropriate evaluation to exclude secondary causes. -Low bone mass at the hip or spine and a 10-year fracture probability by FRAX of greater than or equal to 3% for hip fracture or greater than or equal to 20% for major osteoporotic fracture based on the [place] adapted WHO algorithm. 4. Other Recommendations: All treatment decisions require clinical judgment and consideration of individual patient factors, including patient preferences, comorbidities, previous drug use, risk factors not captured in the FRAX model (e.g. frailty, falls, vitamin D deficiency, increased bone turnover, interval significant decline in bone density) and possible under or overestimation of fracture risk by FRAX. Additional medical evaluation for secondary cause of low bone mineral density may be appropriate. FUTURE SCAN RECOMMENDATION: People with diagnosed cases of osteoporosis or at high risk for fracture should have regular bone mineral density tests. For patients eligible for Medicare, routine testing is allowed once every 2 years. The testing frequency can be increased to one year for patients who have rapidly progressing disease, those who are receiving or discontinuing medical therapy to restore bone mass, or have additional risk factors. Electronically signed by: Awais Dunlap MD 07/22/2024 08:27 PM MIKE EVANS
== END 2024-07-22 08:28 | disposition home or self-care (01) ==
LOC: HO.MAMMO 08:27
PROVIDERS: PCP Physician Assistant Medical; Visit Provider Physician Assistant Medical
DX: Z13.820 Encounter for screening for osteoporosis (principal); Z78.0 Asymptomatic menopausal state
CPT/HCPCS: 77080

== ENCOUNTER 2024-08-03 13:03 | Outpatient (REF) | payer OTHER, SELFPAY ==
--- NOTE | ~2024-08-03 | MM_ITS ---
EXAMINATION: MM DIAGNOSTIC DIGITAL BREAST TOMOSYNTHESIS, BILATERAL CLINICAL INFORMATION: Two-year follow-up for grouped calcifications in the upper outer right breast. COMPARISON: Mammography: Comparison is made with relevant prior exams. TECHNIQUE: Digital breast mammography with tomosynthesis is performed in both the craniocaudal and mediolateral oblique views along with computer-aided detection (CAD). FINDINGS: There are scattered areas of fibroglandular density (ACR BI-RADS breast composition Category b). Grouped coarse and punctate calcifications in the upper-outer quadrant of the right breast are not significantly changed on magnification views for 2 years and therefore benign. There are no significant masses, abnormal calcifications, or other abnormalities. Results are provided to the patient at time of visit by the technologist. MM/MM tomosynthesis diagnostic BI IMPRESSION: No mammographic evidence of malignancy. ASSESSMENT: BI-RADS BI-RADS 2 - Benign Findings RECOMMENDATION: 1 year F/U This patient's information was entered into a reminder system with a target due date for their next mammogram. Electronically signed by: Divina Thompson DO 08/03/2024 01:37 PM MIKE
== END 2024-08-03 13:04 | disposition home or self-care (01) ==
LOC: HO.MAMMO 13:03
PROVIDERS: PCP Physician Assistant Medical; Visit Provider Physician Assistant Medical
DX: R92.1 Mammographic calcification found on diagnostic imaging of breast (principal)
CPT/HCPCS: 77062; 77066

== ENCOUNTER → 2024-08-03 13:30 | Outpatient (BNV) | payer OTHER, SELFPAY | PROVIDERS: PCP Physician Assistant Medical; Visit Provider Internal Medicine | DX: R92.0 Mammographic microcalcification found on diagnostic imaging of breast (principal); R92.323 Mammographic fibroglandular density, bilateral breasts | CPT/HCPCS: 77062; 77066 ==

== ENCOUNTER 2024-10-17 09:00 | Outpatient (REF) | payer OTHER, SELFPAY ==
--- OUTSIDE RECORDS SUMMARY | 2024-10-17 09:03 | XMS_ITS | Patient Health Record ---
[facility] Address [address] [place] [address] Care Team Providers Care Tierce Filler Name Role Phone Tunde ELKINS, Mao Primary Care Provider Karri Llanos Unavailable [phone] Allergies Allergen (clinical drug ingredient) Drug/Non Drug Allergy documented on EMR Reaction Allergy Type Onset Date Status codeine Codeine Unknown Drug Allergy Active Reason For Referral No Information Medications Medication SIG (Take, Route, Frequency, Duration) Notes Start Date End Date Status ZyrTEC Allergy 10 MG 1 tablet as needed Orally Once a day PRN Active Work Note . . . pt must wear athletic shoes to work until further notice 12/23/2017 Not-Taking Night Splint AFO - L1930 as directed 12/23/2017 Not-Taking Custom Orthotics as directed 12/23/2017 Active Luisa Allergy 1 tablet Orally for 30 day(s) Not-Taking Flonase Active HumaLOG Active Lantus Active Lisinopril 20 mg Act alberta Sertraline HCl Activ e Simvastatin Active Immunizations Vaccine Route Administration Date Status Comme nts Pneumococcal Unknown 09/10/2017 Administered Influenza Unknown 06/15/2020 Administered Social History Tobacco Use: Social History Observation Description Date Details (start date - stop date) Current Smoker NA - NA Tobacco Use/Smoking Question Answer Notes Are you a: current smoker How often do you smoke cigarettes? every day How many cigarettes a day do you smoke? 11-20 Alcohol Screen Question Answer Notes Did you have a drink containing alcohol in the p ast year? No Points 0 Interpretation Negative Tobacco use other than smoking: Question Answer Notes Are you an other tobacco user? No Problems Problem Type SNOMED Code ICD Code Onset Dates Problem Status W/U Status Risk Notes Problem Polyneuropathy due to diabetes mellitus type I ([id number]) Type 1 diabetes mellitus with diabetic polyneuropathy (E10.42) Active confirmed Plan Of Treatment Pending Test Test Name Order Date X ray : Foot, left 2V 11/30/2016 X ray : Foot, left 2V 12/23/2017 X ray : Foot, right 2V 12/23/2017 [id number] NAIL, 6 OR MORE 12/23/2017 [id number] NAIL, 6 OR MORE 05/13/2018 [id number] NAIL, 6 OR MORE 05/14/2017 [id number] NAIL, 6 OR MORE 04/26/2015 [id number] NAIL, 6 OR MORE 05/15/2016 [id number] NAIL, 6 OR MORE 09/18/2011 [id number] NAIL, 6 OR MORE 03/18/2012 [id number] NAIL, 6 OR MORE 04/28/2013 [id number] NAIL, 6 OR MORE 04/27/2014 [id number]-TVXW SKIN LESIONS, OVER 4 04/27/20 14 08478-VEFH SKIN LESIONS, OVER 04/28/20 13 16512-WLVR SKIN LESIONS, OVER 4 03/18/20 12 94034-GOZS SKIN LESIONS, OVER 4 09/18/19 12 04762-MYBX SKIN LESIONS, OVER 05/15/20 16 26300-JARV SKIN LESIONS, OVER 04/26/20 15 11631-EEYG SKIN LESIONS, OVER 4 12/24/19 18 46995-UYMZ SKIN LESIONS, OVER 4 05/14/20 17 97067-FLLH SKIN LESIONS, OVER 05/19/20 19 05839-NNGY SKIN LESIONS, OVER 05/17/20 20 70574-UUTA SKIN LESIONS, OVER 05/16/20 21 94704-QVFA SKIN LESIONS, OVER 4 05/13/20 18 Insurance Providers Payer Name Payer Address Payer Phone Subscriber Number Group Number Insured Name Patient Relationship to Insured Coverage Start Date Coverage End Date [employer] re-[id number] [address] [address] [place] [address] [id number] Migdalia Kovacs Self - patient is the insured Medical (General) History Medical History History ICD Code chicken pox type I diabetes Surgical History Surgery Date(Month/Year) foot surgery Hospitalization History Reason Date(Month/Year) ER visit 05/12/2016 Fell broke shoulder 10/2021
--- OUTSIDE RECORDS SUMMARY | 2024-10-17 09:03 | XMS_ITS | Clinical Summary ---
Author Organization [facility] [address] [place] [address] [place] [phone] Phone Care Team Providers Care Shoe Cobbler Name Role Phone John Griffiths MD Primary Care Provider [phone] Allergies Active Allergy Reactions Criticality Noted Date Comments Codeine Sulfate Nausea And Vomiting 11/02/2011 Medications lisinopril (PRINIVIL,ZEST RIL) 40 mg tablet Take 1 tablet (40 mg total) by mouth 1 (one) time each day. for 180 days. 04/01/20 24 Active insulin aspart (NovoLOG Flexpen U-100 Insulin) 100 unit/mL (3 mL) injection pen Inject 14 Units under the skin 3 (three) times a day before meals. According to carb intake/slidin g scale 03/18/20 24 Active sertraline (ZOLOFT) 100 mg tablet Take 1 tablet (100 mg total) by mouth 1 (one) time each day. 10/30/19 24 Active ALPRAZolam (XANAX) 0.5 mg tablet Take 1 tablet (0.5 mg total) by mouth at bedtime as needed for sleep. Take 0.5 Tablets by mouth at bedtime as needed for Sleep. 10/30/19 24 Active insulin glargine (Lantus Solostar U-100 Insulin) 100 unit/mL (3 mL) injection pen Inject 24 Units under the skin at bedtime. 10/01/19 24 Active pen needle, diabetic (BD Ultra-Fine Short Pen Needle) 31 gauge x 5/16 needle 1 each by Other route 4 (four) times a day. Insulin Pen Needle (B-D ULTRAFINE III SHORT PEN) 31G X 8 MM Misc 02/22/20 23 Active multivit with calcium,iron,m in (MULTIPLE VITAMIN, WOMENS ORAL) Take 1 tablet by mouth 1 (one) time each day. Active cholecalcifero l (VITAMIN D-3) 50 mcg (2,000 unit) capsule Take 1 capsule (2,000 Units total) by mouth 1 (one) time each day. Active simvastatin (ZOCOR) 40 mg tablet TAKE 1 TABLET BY MOUTH EVERYDAY AT BEDTIME 90 tablet 09/27/19 25 Active simvastatin (ZOCOR) 40 mg tablet Take 1 tablet (40 mg total) by mouth at bedtime. 04/01/20 24 025 Discontinued Active Problems Problem Noted Date Diagnosed Date Hypercholesteremia 07/18/2024 Hypertension 07/18/2024 Vulvar abscess 01/24/2023 Overview (07/18/2024): Last Assessment & Plan: Resolved. Urinary frequency 05/18/2022 Overview (07/18/2024): Last Assessment & Plan: Encouraged to cut back or stop diet soda and improve blood sugars as both could contribute to her sx. Reassured no evidence of infection. Anxiety 07/29/2019 Cataract 07/10/2017 Overview (07/18/2024): bilateral Type 1 diabetes mellitus with cataract 7 Tobacco use disorder 06/24/2015 Encounters Date Type Department Care Team Description 08/25/2024 8:00 AM EST Office Visit Endocrinology [address] [phone] Michelle Lezama PA Type 1 diabetes mellitus with cataract (CMS/HCC) (Primary Dx); Hypercholesteremia; Primary hypertension from Last 3 Months Immunizations Name Administration Dates Next Due Influenza Quadravalent, MDCK , 0.5ml, preservative free (Flucelvax) 6mo and older 07/14/2021 Influenza Quadrivalent, 0.5m l, preservative free (Fluarix; FluLaval; Fluzone) ages 6mo and older (Afluria) 3yo and older 05/09/2017 Influenza, Unspecified 08/10/2020,2017,08/14/2016,06/24,06/15/2014,07/10/2013,05/28/2012 Pneumococcal polysaccharide 23 valent (Pneumovax 23) 2yo and older 09/19/2017 Tdap Tetanus diptheria acell ular pertussis (Boostrix; Adacel) 7yo and older 04/30/2012 Surgical History Surgery Date Site/Laterality Comments WISDOM TOOTH EXTRACTION PROCEDURE: HISTORICAL WISDOM TEETH EXTRACTION Medical History Medical History Date Comments Hypertension DX:Hypertension Hypercholesteremia DX:Hyperchole steremia 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 ([facility]/HCC) 07/10/2017 DX:Type 1 diabetes mellitus with cataract ([facility]) Cataract 07/10/2017 DX:Cataract; COM MENT: bilateral Tobacco use disorder 06/24/2015 DX:Tobacco use disorder Family History Medical History Relation Name Comments Breast cancer Aunt maternal Hypertension Father PR Lung cancer Maternal Grandfather Arthritis Maternal Grandmother Hypertension Mother arthritis Relation Name Status Comments Aunt Father Alive Maternal Grandfather Maternal Grandmother Mother Alive Social History Tobacco Use Types Packs/Day Years Used Date Smoking Tobacco: Every Day Cigarettes 1 42.1 Started: 09/02/1982 Smokeless Tobacco: Never Tobacco Cessation:Ready to Q uit: Not Asked; Counseling Given: Not Answered Alcohol Use Standard Drinks/Week Comments Yes 0 (1 standard drink = 0.6 oz pur e alcohol) Comments Unknown Sex and Gender Information Value Date Recorded Sex Assigned at Not on file Legal Sex Female 5:22 AM EST Gender Identity Not on file Sexual Orientation Not on file Obstetrics History Last Filed Vital Signs Vital Sign Reading Time Taken Comments Blood Pressure 132/62 08/25/2024 8:12 AM EST C Pulse 77 08/25/2024 8:12 AM EST Temperature 36.4 ??C (97.5 ??F) 08/25/2024 8:12 AM ES T Respiratory Rate - - Oxygen Saturation 96% 08/25/2024 8:12 AM EST Inhaled Oxygen Concentration - - Weight 87.5 kg (193 lb) 08/25/2024 8:12 AM EST Height 158.8 cm (5' 2.5 ) 08/25/2024 8:12 AM EST Body Mass Index 34.74 08/25/2024 8:12 AM EST Plan of Treatment Upcoming Encounters Date Type Department Care Team (Late st Contact Info) Description 11/23/2024 4:20 PM EDT Office Visit Endocrinology - [place] [address] [place] [address] Michelle Lezama PA [address] [place] [address] Health Maintenance Due Date Last Done Comments Breast Cancer Screening 1965 Diabetes: Annual Foot Exam 1973 Zoster Vaccines (1 of 2) 2013 Pneumococcal Vaccine: 50+ Years (2 of 2 - PCV) 09/19/2018 09/19/2017 Pneumococcal Vaccine: Pediatrics (0 to 5 Years) and At-Risk Patients (6 to 64 Years) (2 of 2 - PCV) 09/19/2018 09/19/2017 DTaP,Tdap,and Td Vaccines (2 - Td or Tdap) 04/30/2022 04/30/2012 Colorectal Cancer Screening: Colonoscopy 08/11/2022 Depression Screening 08/11/2022 HIV Screening 08/11/2022 Lung Cancer Screening (Low Dose CT) 08/11/2022 Social Influencers of Health Screening 08/11/2022 RSV Immunization Patients 60+ Years Old (1 - Risk 60-74 years 1-dose series) 2023 Diabetes: Annual Urine Albumin-Creatinine Ratio (uACR) 08/19/2024 08/19/2023 Diabetes: Blood Sugar Control Test (HGBA1C) 12/11/2024 06/12/2024, 06/12/2024, 02/06/2024 Diabetes: Annual Retina Eye Exam 12/16/2024 12/17/2023 Diabetes: Annual GFR (Glomerular Filtration Rate) 02/05/2025 02/06/2024, 02/06/2024, 02/06/2024 Hypertension/CHF/CAD Annual BMP Blood Test 02/05/2025 02/06/2024, 02/06/2024, 02/06/2024 Cervical Cancer Screening: HPV 05/24/2027 05/24/2022 Cholesterol Screening (Lipid Panel) 02/05/2029 02/06/2024, 02/06/2024 Hepatitis C Screening Completed 12/15/2012 COVID-19 Vaccine Completed 08/13/2024, , 09/05/2021, Additional history exists Influenza Vaccine Completed 08/13/2024, , 07/14/2021, Additional history exists HIB Vaccines Aged Out No longer eligi ble based on patient's age to complete this topic HPV Vaccines Aged Out No longer eligi ble based on patient's age to complete this topic Hepatitis A Vaccines Aged Out No long er eligible based on patient's age to complete this topic Hepatitis B Vaccines Aged Out No long er eligible based on patient's age to complete this topic IPV Vaccines Aged Out No longer eligi ble based on patient's age to complete this topic MMR Vaccines Aged Out No longer eligi ble based on patient's age to complete this topic Meningococcal ACWY Vaccine Aged Out N o longer eligible based on patient's age to complete this topic Meningococcal B Vacine Aged Out No lo nger eligible based on patient's age to complete this topic RSV Immunization Patients Under 20 months Aged Out No longer eligible based on patient's age to complete this topic Varicella Vaccines Aged Out No longer eligible based on patient's age to complete this topic Procedures Procedure Name Priority Date/Time Associated Diagnosis Comments HEMOGLOBIN A1C Routine 06/12/2024 ANNUAL BMP BLOOD TEST Routine 02/06/2024 LIPID PANEL Routine 02/06/2024 DIABETES EYE EXAM Routine 12/17/2023 URINE ALBUMIN CREATININE RATIO Routine 08/19/2023 HPV Routine 05/24/2022 HEPATITIS C SCREENING Routine 12/15/2012 from Last 3 Months or Most Recently Relevant to Health Maintenance Results * (ABNORMAL) Hemoglobin A1c (06/12/2024) Hemoglobin A1C 8.6(A) <=6.5 % Blood Venous blood specimen / Unknown Result [facility] Provider LAB BLOOD ORDERABLES Geno l Result * Annual BMP Blood Test (02/06/2024) [facility] Annual BMP Blood Test abstracted Result [facility] Provider HEALTH MAINTENANCE Final Result * Lipid panel (02/06/2024) [facility] LDL/HDL Ratio 2 0 - 4 Triglycerides 57 0 - 150 mg/dL Cholesterol 173 0 - 200 mg/dL HDL 77 >=40 mg/dL LDL Cholesterol 85 0 - 100 mg/dL Blood Venous blood specimen / Unknown Result [facility] Provider LAB BLOOD ORDERABLES Geno l Result * Diabetes Eye Exam (12/17/2023) [facility] Diabetes: Annual Retina Eye Exam abstracted Result [facility] Provider HEALTH MAINTENANCE Final Result * Urine Albumin Creatinine Ratio (08/19/2023) [facility] Urine Albumin Creatinine Ratio abstracted Result [facility] Provider HEALTH MAINTENANCE Final Result * Cervical Cancer Screening: HPV (05/24/2022) [facility] Cervical Cancer Screening: HPV negative, abstracted Result [facility] Provider HEALTH MAINTENANCE Final Result * Hepatitis C Screening (12/15/2012) [facility] Hepatitis C Screening abstracted Result [facility] Provider HEALTH MAINTENANCE Final Result from Last 3 Months or Most Recently Relevant to Health Maintenance Insurance [facility] Care Teams Shoe Cobbler Relationship Specialty Start Date End Date John Griffiths MD [address] [place] [id number] PCP - General Internal Medicine 08/25/24
--- OUTSIDE RECORDS SUMMARY | 2024-10-17 09:03 | XMS_ITS ---
Author Organization [facility] Address [address] [place] [address] Care Team Providers Care Instructional Support Services Director Name Role Phone Mao Griffiths MD Primary Care Provider Karri Llanos [phone] ryan/femi 06/13 Encounters Encounter Location Date Provider Diagnosis [address] [address] 06/12/2023 Karri Branham Plan Of Treatment No Information Progress Notes * Migdalia ARANA ADOB: (58 yo F)Acc No.[id number]:06/12/2023 Patient:?Tessie Arana :1965???Age:58 Y???Sex:Female Address:[address] [place] [phone] * true * Date:? Generated for Fortunato morel/Dionte/eTransmitting on:?10/17/2024 09:03 AM EST
--- OUTSIDE RECORDS SUMMARY | 2024-10-17 09:03 | XMS_ITS ---
Author Organization [facility] Address [address] [place] [phone] Care Team Providers Care Waiter/Waitress Second Class Name Role Phone Mao Griffiths MD Primary Care Provider Karri Llanos [phone] Winkler Encounters Encounter Location Date Provider Diagnosis [address] [address] 06/13/2023 Karri Branham Plan Of Treatment No Information Progress Notes * Migdalia ARANA ADOB: (59 yo F)Acc No.[id number]:06/13/2023 Progress Note Patient:?Tessie ARNAA Provider:?Karri Branham DPM :1965???Age:58 Y???Sex:Female D ate:06/13/2023 Address:[address] [place], [place] [id number] Pcp:Mao Griffiths MD Subjective: * Chief Complaints: * ???1. Dr Winkler. * Medical History:? Objective: * Vitals:? Assessment: Plan: * Treatment: * Images: * The named appointment provid er may or may not be the originator of this progress note, and it is not deemed complete until electronically signed by the appointment provider. Sign off status: Pending * Provider:Dipak Branham DPM Date:? 023 Generated for Printi ng/Fatigistg/eTransmitting on:?10/17/2024 09:03 AM EST
--- OUTSIDE RECORDS SUMMARY | 2024-10-17 09:03 | XMS_ITS ---
Author Organization [facility] Address [address] [place] [address] Care Team Providers Care Truck Cleaner Name Role Phone Mao Griffiths MD Primary Care Provider Karri Llanos [phone] REASON FOR VISIT Painful nail(s) aggrevated by shoes and causing difficulty standing/walking. Encounters Encounter Location Date Provider Diagnosis [facility] [address] [place] [address] 06/17/2023 Karri Branham Tinea unguium B35.1 ; Plantar fascial fibromatosis M72.2 ; Pain in right toe(s) M79.674 ; Type 1 diabetes mellitus with diabetic polyneuropathy E10.42 ; Pain in left toe(s) M79.675 and Tinea pedis B35.3 Assessments Encounter Date Diagnosis (ICD Code) Assessment Notes Treatment Notes Treatment Clinical Notes Section Notes 06/17/2023 Tinea unguium (ICD-10 - B35.1) 06/17/2023 Plantar fascial fibromatosis (ICD-10 - M72.2) 06/17/2023 Pain in right toe(s) (ICD-10 - M79.674) 06/17/2023 Type 1 diabetes mellitus with diabetic polyneuropathy (ICD-10 - E10.42) 06/17/2023 Pain in left toe(s) (ICD-10 - M79.675) 06/17/2023 Tinea pedis (ICD-10 - B35.3) Plan Of Treatment Next Appt Details Follow Up: 1 Year, Reason: Procedure Notes * Category Sub-Category Detail Notes Debride Nail 6-10 Nail debridement Nail debridem ent performed extensively to reduce/remove overall nail length and girth, subungual debris, and necrotic tissue, by manual and electrical means with use of a nail nipper and/or dremel, to more viable healthy nail plate or bed tissue 6-10. Silver nitrate used for any petechial bleeding as necessary. Patient chooses, no pharmaceutical tx (68347) Keratoma Treatment Parring or Cutting o f Benign Hyperkeratotic Lesion(s) 82016 ( >4 Lesions) - The Benign hyperkeratotic lesions, as described above were pared, and/or cut utilizing a sterile #15 blade, tissue nippers, and/or dremel Progress Notes * Migdalia ARANA ADOB: (59 yo F)Acc No.[id number]:06/17/2023 Progress Note Patient:?PENNIETessie DOMINGUEZ teena Lei Provider:?Karri Branham DPM :1965???Age:58 Y???Sex:Female D ate:06/17/2023 Address:[address] [place], [place] [id number] Pcp:Mao Griffiths MD Subjective: * Chief Complaints: * ???1. Painful nail(s) aggrev ated by shoes and causing difficulty standing/walking.. * HPI: ???Painful Nails:?Pt States Last PCP Visit:?Date:?06/08/2022 ?Misc:? undergoing pancreatic ca tx; pt fell and fx right shoulder 10/24 and was out of work for 6 months.? * ROS:?General/Constitutional:?Nausea?denies.?Vomiting?denies.?Hunger Thirst?denies.?Loss appetite?denies.?Chills?denies.?Fatigue?denies.?Fever?denies.?Night Sweats?denies.?Unexplained weight loss?denies.?Unexplained weight gain?denies.?HEENTM:?Dentures?denies.?Dizziness?denies.?Glasses/contacts?denies.?Retinopathy?de nies.?Blurred/double vision?denies.?TMJ?denies.?Discharge/drainage?denies.?Implants?denies.?Sore throat?denies.?Dental implants?denies.?Hard of hearing ?denies.?Difficulty chewing/swallowing/speaking?denies.?Nose bleeds?denies.?Sore mouth?denies.?Respiratory:?On Oxygen?denies.?Pneumonia/pleurisy?denies.?Bronchitis?denies.?Emphysema?denies.?C oughing?denies.?Cough blood?denies.?Shortness of breath?denies.?Wheezing?denies.?Cardiovascular:?Pacemaker?denies.?MVP?denies.?WPW?denies.?CHF?denies.?Heart attack?denies.?Septal defect?denies.?Rapid beat?denies.?Chest pain ?denies.?Atrial Fib.?denies.?Murmur/Palpitations?denies.?Gastrointestinal:?Hemorrhoids?denies.?Stomach/Abdominal pain?denies.?Dark blood stool?denies.?Irritable bowel ?denies.?Constipation?denies.?Diarrhea?denies.?Hematology:?Swelling?denies.?Clots?denies.?Varicose Veins?denies.?Bruising?denies.?Bleeding problem?denies.?Genitourinary:?Blood urine?denies.?Frequent/Painfu/urination/bladder control?denies.?Kidney stones?denies.?Infection (UTI)?denies.?Nephropathy?denies.?sex trans dis (STD)?denies.?Prostate?denies.?Musculoskeletal:?Hammertoes?denies.?Bunions?denies.?Back Pain?denies.?Muscle Cramps/ Resting?denies.?Muscle cramps / walking?admits.?Generalized aches and pains?admits.?Weakness?denies.?Integ.:?Casiano?denies.?Scars?denies.?Corns/calluses?denies.?Ingrown nails?denies.?Painful nails?denies.?Open Sores?denies.?Rashes?denies.?Neurologic:?Difficulty sleeping?denies.?Brain disorder?denies.?Numbness?denies.?Balance trouble?denies.?Confusion?denies.?Fainting/blackouts?denies.?Tingling?denies.?Tr emors?denies.? * Medical History:? Objective: * Vitals:? * Examination: ???Neurological: ?SENSORY:?exam demonstrates. reduced vibration lower extremity, B/L, at forefoot , at Midfoot , 5.07 monofilament test performed at plantar aspects of 5 varied sites per foot shows sensation, reduced , B/L.?Vascular: ?DP PULSES (B):? 1/4, B/L.?PT PULSES (B):?/4, B/L.?CAPILLARY FILL TIME:? 3 secs. per digit, B/L.?Nails: ?NAILS are:?elongated,overgrown,dystrophic,greater than 3mm thick,discolored and friable with crumbly malodorous subungual debris, with dull pain on palpation due to neuropathy, 1-5 B/L.?Dermatologic: ?SKIN FINDINGS:?Skin exam reveals keratotic lesion(s) located at, SUB MTH (s), 2, 5, Heel, B/L , Skin exam reveals keratotic lesion(s) located at, Dorsal, T9, TA, , T5.?Orthopedic: ?MUSCLE STRENGTH:?5/5 all groups in a symmetrical fashion , B/L.?FOOT MORPHOLOGY:? Pes Cavus structure, B/L.?DIGITAL DEFORMITIES:? Digital contracture T4 and T9.? Assessment: * Assessment: 1.?Tinea unguium - B35.1 (Pr imary)???2.?Plantar fascial fibromatosis - M72.2???3.?Pain in right toe(s) - M79.674???4.?Type 1 diabetes mellitus with diabetic polyneuropathy - E10.42???5.?Pain in left toe(s) - M79.675???6.?Tinea pedis - B35.3??? Plan: * Treatment: * Procedures:?Debride Nail 6-10:?Nail debridement?Nail debridement performed extensively to reduce/remove overall nail length and girth, subungual debris, and necrotic tissue, by manual and electrical means with use of a nail nipper and/or dremel, to more viable healthy nail plate or bed tissue 6-10. Silver nitrate used for any petechial bleeding as necessary. Patient chooses, no pharmaceutical tx (13162).?Keratoma Treatment:?Parring or Cutting of Benign Hyperkeratotic Lesion(s)?30578 ( >4 Lesions) - The Benign hyperkeratotic lesions, as described above were pared, and/or cut utilizing a sterile #15 blade, tissue nippers, and/or dremel.? * Procedure Codes:?51886 DEBRI DE NAIL, 6 OR MORE, Modifiers: XS , 79401 TRIM SKIN LESIONS, OVER 4, Modifiers: XS * Follow Up:?1 Year * Images: * The named appointment provid er may or may not be the originator of this progress note, and it is not deemed complete until electronically signed by the appointment provider. Sign off status: Pending * Provider:?Karri Branham DPM Date:? 023 Generated for Fortunato morel/Dionte/Christine on:?10/17/2024 09:03 AM EST History and Physical Notes * HPI (History of Present Illness) Category Sub-Category Detail Notes Category Not es Painful Nails Misc: undergoi ng pancreatic ca tx; pt fell and fx right shoulder 10/24 and was out of work for 6 months Pt States Last PCP Visit: Date:: 06/08/2022 Examination Category Sub-Category Detail Notes Category Not es Neurological SENSORY: exam demonstrate s. reduced vibration lower extremity, B/L, at forefoot , at Midfoot , 5.07 monofilament test performed at plantar aspects of 5 varied sites per foot shows sensation, reduced , B/L Dermatologic SKIN FINDINGS: Skin exam reveal s keratotic lesion(s) located at, SUB MTH (s), 2, 5, Heel, B/L , Skin exam reveals keratotic lesion(s) located at, Dorsal, T9, TA, , T5 Orthopedic FOOT MORPHOLOGY: Pes Cavus structure, B/L DIGITAL DEFORMITIES: Digital contracture T4 and T9 MUSCLE STRENGTH: 5/5 all groups in a symmetrical fashion , B/L Vascular DP PULSES (B): 1/4, B/L PT PULSES (B): 1/4, B/L CAPILLARY FILL TIME: 3 secs. per digit, B/L Nails NAILS are: elongated,overgr own,dystrophic,greater than 3mm thick,discolored and friable with crumbly malodorous subungual debris, with dull pain on palpation due to neuropathy, 1-5 B/L
[2024-10-17 10:00] LABS: Hematocrit 42.3 % (37.0-47.0); Hemoglobin 14.3 g/dl (12.0-16.0); Mean Corpuscular HGB Conc 33.8 g/dl (31.0-35.0); Mean Corpuscular Hemoglobin 31.4 pg (27.0-33.0); Mean Platelet Volume 11.3 fL (9.4-12.3); Platelet Count 306 X10*3/uL (160-400); Red Blood Count 4.55 X10*6/uL (4.20-5.50); Red Cell Distribution Width 13.1 % (11.0-16.0); White Blood Count 9.5 X10*3/uL (4.8-10.8)
[2024-10-17 10:11] LABS: Estimated Average Glucose 206 mg/dL; Hemoglobin A1C 271.9175 umol/L; Hemoglobin A1c % 8.8 % (<6.0); Total Hemoglobin (HGBA1C) 3751.9476 umol/L
[2024-10-17 10:41] LABS: Alanine Aminotransferase 11 U/L (0-31); Albumin Level 4.2 g/dL (3.5-5.0); Alkaline Phosphatase 88 U/L (39-117); Anion Gap 15 (12-20); Aspartate Amino Transferase 17 U/L (5-31); Bilirubin Total 0.4 mg/dL (0.0-1.0); Blood Urea Nitrogen 13 mg/dL (9-16); Calcium 9.8 mg/dL (8.4-10.2); Carbon Dioxide 27 mmol/L (22-29); Chloride 103 mmol/L (96-108); Cholesterol 175 mg/dL (<200); Estimated Glomerular Filt Rate > 60; Glucose Random 259 mg/dL (60-115); HDL Cholesterol 67 mg/dL (>40); LDL Cholesterol Calculated 99 mg/dL (<100); Potassium 4.5 mmol/L (3.3-5.1); Sodium 140 mmol/L (135-145); Total Protein 7.4 g/dL (6.5-8.0); Triglycerides 48 mg/dL (<150)
[2024-10-17 10:55] LABS: TSH reflex Free T4 2.51 uIU/mL (0.32-4.0)
[2024-10-22 16:04] LABS: VITAMIN D (1,25 OH) D3 36 pg/mL; Vit D (1,25-Dihydroxy) Total 36 pg/mL (18-72); Vitamin D (1,25 OH) D2 <8 pg/mL
== END 2024-10-17 09:01 | disposition home or self-care (01) ==
LOC: HO.LAB 09:00
PROVIDERS: PCP Physician Assistant Medical; Visit Provider Physician Assistant Medical
DX: E78.00 Pure hypercholesterolemia, unspecified (principal); I10 Essential (primary) hypertension; E11.9 Type 2 diabetes mellitus without complications; E66.9 Obesity, unspecified
CPT/HCPCS: 36415; 80053; 80061; 82652; 83036; 84443; 85027

== ENCOUNTER 2024-10-22 09:05 | Outpatient (AMB) | payer OTHER, SELFPAY ==
--- NOTE | 2024-10-22 09:36 | MHC.PC.OV ---
Vital Signs 10/22/24 09:42 Height 5 ft 2.2 in Weight 193 lb 8 oz BMI 35.2 BP 124/82 Blood Pressure Location Rt brachial Position Sitting Respiration 14 Pulse 84 Pulse Source Pulse Oximeter Pulse Oximetry (%) 99 Oxygen Delivery Method Room Air Intake Visit Reasons: follow up Intake Note: Follow up lab results. Access Clerk Required: No Allergies codeine [CODEINE] Adverse Reaction (Mild, Verified 10/22/24 09:36) NAUSEA & VOMITING Tobacco use date assessed: 10/22/24 Dental Screening Dental Screen Date: 04/20/24 HPI HPI Comments History of Present Illness Details This is a 59-year-old female with a past medical history of type 1 diabetes, hypertension, tobacco use disorder, diabetic polyneuropathy and hypercholesterolemia presenting for follow up. Tobacco use-The patient started smoking at age 13. She has smoked half a pack to a full pack daily since then. She continues to decline CT screening for lung cancer. Denies cough, wheezing, shortness of breath, hemoptysis. Osteopenia-hip fracture risk greater than 3%. We reviewed her bone density exam again today. Patient takes calcium and vitamin-D. Vitamin-D level is pending. She is not sure she wants to take an oral bisphosphonate for this. Hypertension-she monitors blood pressure at home, and the readings are less than 130/80. Type 1 diabetes-She continues to see endocrinology at [facility]. Hemoglobin A1c 8.8%. Patient says she never could get her A1c less than 7%. When her A1c was in the sevens in the past she had hypoglycemic episodes frequently and then would have rebound hyperglycemia with treatment. She takes 8-12 Novolog sliding scale and Lantus 24 units daily. LDL cholesterol is less than 100 on simvastatin. ROS: Constitutional: No unexplained weight loss, fever, chills, fatigue or night sweats. Respiratory: No shortness of breath, hemoptysis, cough or sputum production. Cardiovascular: No chest pain, no pedal edema. Gastrointestinal: No abdominal pain Neurologic: No numbness or tingling, no headache or loss of consciousness. Skin: No redness or bruising. Physical exam: Constitutional: Alert, in no distress. Eyes: Pupils are equal, round and reactive to light. Extraocular muscles intact. Neck: Supple, Full range of motion. No lymphadenopathy. No palpable thyroid masses. Respiratory: Clear to auscultation. Cardiovascular: S1 S2 regular. No murmurs. No carotid bruits. Gastrointestinal: Abdomen soft, non-tender, non-distended. Normal bowel sounds. No palpable masses. Psychiatric: Normal mood and affect [facility] Medical History (Updated 10/22/24 @ 10:03 by SUNITA Mathis) Fracture Risk Assessment Score (FRAX) indicating greater than 3% risk for hip fracture Osteopenia Tobacco use disorder Closed traumatic displaced fracture of rib Skin rash Pure hypercholesterolemia Obesity with serious comorbidity Diabetes, polyneuropathy Anxiety Type I diabetes with complications Arthritis HTN (hypertension) Family History (Updated 04/21/24 @ 09:28 by SUNITA Mathis) Mother HTN (hypertension) Thyroid disorder Father HTN (hypertension) Cardiovascular disease Clotting disorder Stomach cancer Alcoholism Sister Primary biliary cholangitis Other High cholesterol Social History (Updated 04/20/24 @ 15:02 by Shyla Mccarty CMA) Housing: House Patient Tobacco Use Status: Current everyday Tobacco user Cigarette Packs Per Day: 1 Years Smoked: 40 e-Cigarette/Vaping Use: Never Used Second Hand Smoke Exposure: No service: No Current occupational status: employed 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, 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 Current occupational exposures/hazards: No Cognitive needs: No Hearing needs: No Vision needs: Yes (glasses) Questionnaire Thrive Questionnaire Date Thrive assessed: 06/19/24 I am a: Patient What is your living situation today?: I choose not to answer this question Within the past 12 months, did the food you bought not last and you didn't have the money to get more?: I choose not to answer this question Within the past 12 months, did you worry whether your food would run out before you got money to buy more?: I choose not to answer this question Do you have trouble paying for medicines?: I choose not to answer this question Do you have trouble getting transportation to medical appointments?: I choose not to answer this question Do you have trouble paying your heating and electricity bill?: I choose not to answer this question Do you have trouble taking care of your child, family member or friend?: I choose not to answer this question Do you have trouble with day-to-day activities such as bathing, preparing meals, shopping, managing finances, etc.?: I choose not to answer this question Are you currently unemployed and looking for a job?: I choose not to answer this question Are you interested in more education?: I choose not to answer this question Please select the resources that you would like help with: None Currently or been in a relationship where the following occur: I choose not to answer THRIVE Score: 0 AUDIT C Alcohol Use Questionnaire (AUDIT-C) 1. How often do you have a drink containing alcohol?: 2-4 times a month 2. How many drinks containing alcohol do you have on a typical day when you are drinking?: 3 or 4 3. How often do you have six or more drinks on one occasion?: Monthly Total Score: 5 JUANITA-7 AMB Questionnaire JUANITA-7 Date JUANITA - 7 assessed: 10/22/24 Feeling nervous, anxious, or on edge: 0 = Not at all Not being able to stop or control worryin = Not at all Worrying too much about different things: 0 = Not at all Trouble relaxin = Not at all Being so restless that it is hard to sit still: 0 = Not at all Becoming easily annoyed or irritable: 0 = Not at all Feeling afraid as if something awful might happen: 0 = Not at all Total JUANITA-7 score (0-4 normal; 5-9 mild; 10-14 moderate; 15-21 severe): 0 Source: Developed by Drs. Taiwo Myers, Valentine Buckley, Jd Garcia and colleagues, with an educational rebeca from [employer]. JUANITA-7 Assessment Billing JUANITA-7 Assessment Tool: JUANITA-7 Assessment 42491 Physical exam (Primary Care) Vital Signs: Last Vital Signs Pulse 84 10/22/24 09:42 Resp 14 10/22/24 09:42 BP 124/82 10/22/24 09:42 Pulse Ox 99 10/22/24 09:42 Oxygen Delivery Method Room Air 10/22/24 09:42 BMI result Body Mass Index 35.2 Tobacco/Smoking Status: Tobacco use Status Tobacco use date assessed 10/22/24 10/22/24 09:41 Patient Tobacco Use Status Current everyday Tobacco 10/22/24 09:38 e-Cigarette/Vaping Use Never Used 10/22/24 09:38 Thrive Assessment: Date of Thrive Assessment Date Thrive assessed 06/19/24 10/22/24 09:38 Currently or been in a relationship where the following occur: I choose not to answer Coding Level of Care Code Est Pt Level 4 (47498) Complex EM visit Add On G2211 Diagnoses Tobacco use disorder F17.200 Type I diabetes with complications E10.8 Primary hypertension I10 Hypertension type: primary hypertension Osteopenia M85.80 Fracture Risk Assessment Score (FRAX) indicating greater than 3% risk for hip fracture Z91.89 Additional Codes JUANITA-7 Assessment Billing - JUANITA-7 Assessment Tool: JUANITA-7 Assessment 55327 ([id number]) Assessment & Plan Assessment & Plan (1) Tobacco use disorder: Code(s): F17.200 - Nicotine dependence, unspecified, uncomplicated Category: Medical Plan: Strongly recommended cessation. Patient declines at this time. We also discussed LDCT. She declines. (2) Type I diabetes with complications: Code(s): E10.8 - Type 1 diabetes mellitus with unspecified complications Category: Medical Plan: Continue management per endocrinology. She is followed at [facility]. She is considering switching, and she will contact me if she needs a referral. Recommended annual eye exams. (3) HTN (hypertension): Code(s): I10 - Essential (primary) hypertension Category: Medical Qualifiers: Hypertension type: primary hypertension Qualified Code(s): I10 - Essential (primary) hypertension Plan: Recommended low-sodium diet, avoidance of caffeine. Continue lisinopril 40 mg daily. She monitors blood pressure at home. Recommended exercise. She is going to start walking again when the weather is nicer. (4) Osteopenia: Code(s): M85.80 - Other specified disorders of bone density and structure, unspecified site Category: Medical Plan: We discussed risks of untreated osteopenia and progression to osteoporosis and increased risk fracture. We discussed the link between diabetes, smoking and osteopenia. Reviewed calcium and vitamin-D supplementation. Reviewed treatments for osteopenia given hip fracture risk greater than 3%. Patient is not sure she wants to take an oral bisphosphonate which I could prescribe here. I have referred her to her publications production supervisor for further management. (5) Fracture Risk Assessment Score (FRAX) indicating greater than 3% risk for hip fracture: Code(s): Z91.89 - Other specified personal risk factors, not elsewhere classified Category: Medical Plan Follow up in 4 months. Orders: Referrals Endocrinology Referral M85.80 - Other specified disorders of bone density and structure, unspecified site, Z91.89 - Other specified personal risk factors, not elsewhere classified
[2024-10-22 09:42] VITALS: BP 124/82; PULSE 84; RESP 14; O2SAT 99; BMI 35.2
--- OUTSIDE RECORDS SUMMARY | 2024-10-22 09:43 | XMS_ITS ---
Author Organization [facility] Address [address] [place] [address] Care Team Providers Care Consumer Lender Name Role Phone Mao Griffiths MD Primary Care Provider Karri Llanos [phone] Winkler Encounters Encounter Location Date Provider Diagnosis [address] [address] 06/13/2023 Karri Branham Plan Of Treatment No Information Progress Notes * Migdalia ARANA ADOB: (59 yo F)Acc No.[id number]:06/13/2023 Progress Note Patient:?Tessie ARANA Provider:?Karri Branham DPM :1965???Age:58 Y???Sex:Female D ate:06/13/2023 Address:[address] [place], [place] [id number] Pcp:Mao Griffiths MD Subjective: * Chief Complaints: [...] Provider:?Karri Branham DPM Date:? 023 Generated for Printi ng/Fatigistg/eTransmitting on:?10/22/2024 09:43 AM EST
--- OUTSIDE RECORDS SUMMARY | 2024-10-22 09:44 | XMS_ITS | Patient Health Record ---
[facility] Address [address] [place] [address] Care Team Providers Care Segment Assembler Name Role Phone Tunde ELKINS, Mao Primary Care Provider Karri Llanos Unavailable [phone] Allergies Allergen (clinical drug ingredient) Drug/Non Drug [...] Vaccine Route Administration Date Status Comme nts Influenza Unknown 06/15/2020 Administered Pneumococcal Unknown 09/10/2017 Administered Social History Tobacco Use: Social History [...] Polyneuropathy due to diabetes mellitus type I ([id number]) Type 1 diabetes mellitus with diabetic polyneuropathy (E10.42) Active confirmed Plan Of Treatment Pending Test Test Name Order Date X ray : Foot, left 2V 11/30/2016 X ray : Foot, left 2V 12/23/2017 X ray : Foot, right 2V 12/23/2017 01445-BVHIFDO NAIL, 6 OR MORE 12/23/2017 15462-DENIBQU NAIL, 6 OR MORE 05/13/2018 85208-ZUKRTVG NAIL, 6 OR MORE 05/14/2017 71825-HIBYMLC NAIL, 6 OR MORE 04/26/2015 32261-SHQZTBV NAIL, 6 OR MORE 05/15/2016 05708-CKFAZGZ NAIL, 6 OR MORE 09/18/2011 60405-BKAKGKG NAIL, 6 OR MORE 03/18/2012 50352-NIQGFUK NAIL, 6 OR MORE 04/28/2013 29213-SWLPUCA NAIL, 6 OR MORE 04/27/2014 93035-WQZQ SKIN LESIONS, OVER 4 04/27/20 14 08011-XLEG SKIN LESIONS, OVER 04/28/20 13 57686-MAIS SKIN LESIONS, OVER 4 03/18/20 12 14669-FRUZ SKIN LESIONS, OVER 4 09/18/19 12 60089-SOQH SKIN LESIONS, OVER 05/15/20 16 52564-SVLT SKIN LESIONS, OVER 04/26/20 15 44671-XIGK SKIN LESIONS, OVER 4 12/24/19 18 09683-UBZT SKIN LESIONS, OVER 4 05/14/20 17 95166-YJCD SKIN LESIONS, OVER 05/19/20 19 63936-JCWU SKIN LESIONS, OVER 05/17/20 20 72947-QQQM SKIN LESIONS, OVER 05/16/20 21 35847-JOFB SKIN LESIONS, OVER 4 05/13/20 18 Insurance Providers Payer Name Payer Address Payer Phone Subscriber Number Group Number Insured Name Patient Relationship to Insured Coverage Start Date Coverage End Date [facility] [id number] [address] [address] [place] [phone] [id number] Migdalia Kovacs Self - patient is the insured Medical (General) History Medical History History ICD Code chicken pox type I diabetes Surgical History Surgery Date(Month/Year) foot surgery Hospitalization History Reason Date(Month/Year) ER visit 05/12/2016 Fell broke shoulder 10/2021
--- OUTSIDE RECORDS SUMMARY | 2024-10-22 09:44 | XMS_ITS | Clinical Summary ---
Author Organization [facility] [address] [place] [address] [place] [phone] Phone Care Team Providers Care Glass Embosser Name Role Phone John Griffiths MD Primary Care Provider [phone] Allergies Active Allergy Reactions Criticality Noted Date [...] 08/25/2024 8:00 AM EST Office Visit Endocrinology [address] [address] Michelle Lezama PA Type 1 diabetes mellitus [...] 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 ([facility]) 07/10/2017 DX:Type 1 diabetes mellitus with cataract ([facility]) Cataract 07/10/2017 DX:Cataract; COM MENT: bilateral Tobacco use disorder 06/24/2015 DX:Tobacco use disorder Family History Medical History Relation Name Comments Breast cancer Aunt maternal Hypertension Father [place] Lung cancer Maternal Grandfather Arthritis Maternal Grandmother [...] 4:20 PM EDT Office Visit Endocrinology - [place] [address] [place] [address] Michelle Lezama PA [address] [place] [address] Health Maintenance Due Date Last Done Comments [...] Blood Venous blood specimen / Unknown Result [facility] Provider LAB BLOOD ORDERABLES Geno l Result * Annual BMP Blood Test (02/06/2024) [facility] Annual BMP Blood Test abstracted Result [facility] Provider HEALTH MAINTENANCE Final Result * Lipid panel (02/06/2024) [facility] LDL/HDL Ratio 2 0 - 4 Triglycerides 57 0 - 150 mg/dL Cholesterol 173 0 - 200 mg/dL HDL 77 >=40 mg/dL LDL Cholesterol 85 0 - 100 mg/dL Blood Venous blood specimen / Unknown Result [facility] Provider LAB BLOOD ORDERABLES Geno l Result * Diabetes Eye Exam (12/17/2023) [facility] Diabetes: Annual Retina Eye Exam abstracted Result [facility] Provider HEALTH MAINTENANCE Final Result * Urine Albumin Creatinine Ratio (08/19/2023) [facility] Urine Albumin Creatinine Ratio abstracted Result [facility] Provider HEALTH MAINTENANCE Final Result * Cervical Cancer Screening: HPV (05/24/2022) [facility] Cervical Cancer Screening: HPV negative, abstracted Result [facility] Provider HEALTH MAINTENANCE Final Result * Hepatitis C Screening (12/15/2012) [facility] Hepatitis C Screening abstracted Result [facility] Provider HEALTH MAINTENANCE Final Result from Last 3 Months or Most Recently Relevant to Health Maintenance Insurance [facility] Care Teams Glass Embosser Relationship Specialty Start Date End Date John Griffiths MD [address] [place] [id number] PCP - General Internal Medicine 08/25/24
--- OUTSIDE RECORDS SUMMARY | 2024-10-22 09:44 | XMS_ITS ---
Author Organization [facility] Address [address] [place] [address] Care Team Providers Care Klystrom Tube Tester Name Role Phone Mao Griffiths MD Primary Care Provider Karri Llanos [phone] ryan/femi 06/13 Encounters Encounter Location Date Provider Diagnosis [address] [address] 06/12/2023 Karri Branham Plan Of Treatment No Information Progress Notes * Migdalia ARANA ADOB: (58 yo F)Acc No.[id number]:06/12/2023 Patient:?Tessie Arana :1965???Age:58 Y???Sex:Female Address:[address] [place] [address] * true * Date:? Generated for Fortunato morel/Dionte/eTransmitting on:?10/22/2024 09:44 AM EST
--- OUTSIDE RECORDS SUMMARY | 2024-10-22 09:44 | XMS_ITS ---
Author Organization [facility] Address [address] [place] [address] Care Team Providers Care Cisco Network Engineer Name Role Phone Mao Griffiths MD Primary Care Provider Karri Llanos [phone] REASON FOR VISIT Painful nail(s) aggrevated by shoes and causing difficulty standing/walking. Encounters Encounter Location Date Provider Diagnosis [facility] [address] [place] [address] 06/17/2023 Karri Branham Tinea unguium B35.1 ; [...] as necessary. Patient chooses, no pharmaceutical tx (52414) Keratoma Treatment Parring or Cutting o f Benign Hyperkeratotic Lesion(s) 31099 ( >4 Lesions) - The Benign hyperkeratotic lesions, as described above were pared, and/or cut utilizing a sterile #15 blade, tissue nippers, and/or dremel Progress Notes * Migdalia ARANA ADOB: (59 yo F)Acc No.[id number]:06/17/2023 Progress Note Patient:?PENNIETessie DOMINGUEZ teena Lei Provider:?Karri Branham DPM :1965???Age:58 Y???Sex:Female D ate:06/17/2023 Address:[address] [place], [place] [id number] Pcp:Mao Griffiths MD Subjective: * Chief Complaints: [...] as necessary. Patient chooses, no pharmaceutical tx (72190).?Keratoma Treatment:?Parring or Cutting of Benign Hyperkeratotic Lesion(s)?06475 ( >4 Lesions) - The Benign hyperkeratotic lesions, as described above were pared, and/or cut utilizing a sterile #15 blade, tissue nippers, and/or dremel.? * Procedure Codes:?24181 DEBRI DE NAIL, 6 OR MORE, Modifiers: XS , 95410 TRIM SKIN LESIONS, OVER 4, Modifiers: XS * Follow Up:?1 Year * Images: * The named appointment provid er may or may not be the originator of this progress note, and it is not deemed complete until electronically signed by the appointment provider. Sign off status: Pending * Provider:?Karri Branham DPM Date:? 023 Generated for Fortunato morel/Dionte/Christine on:?10/22/2024 09:43 AM EST History and Physical Notes * [...]
== END 2024-10-22 10:20 | disposition home or self-care (01) ==
PROVIDERS: PCP Physician Assistant Medical; Visit Provider Physician Assistant Medical
DX: F17.200 Nicotine dependence, unspecified, uncomplicated (principal); E10.8 Type 1 diabetes mellitus with unspecified complications; I10 Essential (primary) hypertension; M85.80 Other specified disorders of bone density and structure, unspecified site; Z91.89 Other specified personal risk factors, not elsewhere classified

== ENCOUNTER → 2024-10-22 09:05 | Outpatient (BNVA) | payer OTHER, SELFPAY | PROVIDERS: PCP Physician Assistant Medical; Visit Provider Physician Assistant Medical | DX: E10.8 Type 1 diabetes mellitus with unspecified complications (principal); I10 Essential (primary) hypertension; M85.80 Other specified disorders of bone density and structure, unspecified site; F17.210 Nicotine dependence, cigarettes, uncomplicated; Z79.899 Other long term (current) drug therapy; Z91.89 Other specified personal risk factors, not elsewhere classified | CPT/HCPCS: 96127 ==

== ENCOUNTER 2025-02-05 21:53 | Emergency (ER) | payer OTHER, SELFPAY ==
--- NOTE | ~2025-02-05 | XR_ITS ---
CLINICAL HISTORY: fall 3 views left ankle Comparison: None Findings: There is no fracture or dislocation. Joint spaces appear normal. Impression: Unremarkable left ankle radiographs. This document has been electronically signed by: Grover Dunbar MD on 02/06/2025 00:05:28
--- NOTE | ~2025-02-05 | XR_ITS ---
CLINICAL HISTORY: syncope vomiting 1 view chest x-ray. Comparison: None Findings: The lungs appear clear. There is no consolidation, effusion, or pneumothorax. Cardiomediastinal silhouette is within normal limits. There are old healed right rib fractures. There is a chronic fracture deformity of the proximal right humerus. IMPRESSION: No acute cardiopulmonary abnormality. This document has been electronically signed by: Grover Dunbar MD on 02/06/2025 00:14:25
[2025-02-05 22:01] VITALS: BP 104/50; BP 69/40; PULSE 68; PULSE 69; RESP 18; O2SAT 98; BMI 36.9
--- NOTE | 2025-02-05 22:06 | ED_ITS ---
HPI - General Adult General Chief complaint: Fall Stated complaint: HYPOTENSIVE, HYPOGLYEMIC PER EMS Time Seen by Provider: 02/05/25 22:00 Source: patient, family and EMS Mode of arrival: EMS Limitations: no limitations History of Present Illness ED Provider: HPI narrative: Patient been diabetic for last 30 years took 8 units of Humalog at 19:30 before meals and had small amount of food patient feels that she ate less as supposed to otherwise during the daytime patient was in normal health after taking insulin patient was working on the cabinet felt like her blood sugar is going down so she ate 6 peanut butter cookies sat on the chair and slumped down without any significant head injury complaining of left ankle when EMS arrived blood sugar was 101 no seizures patient's blood pressure was 69/40 received 400 cc of normal saline blood pressure on arrival was 140/50 Related Data Home Medications ?Medication ?Instructions ?Recorded ?Confirmed pen needle, diabetic 31 gauge x #1,200 ea 07/05/22 5/16 (BD Ultra-Fine Short Pen Needle) simvastatin 40 mg tablet mg PO 07/05/22 cholecalciferol (vitamin D3) 50 50 mcg PO DAILY 04/20/24 mcg (2,000 unit) tablet fluticasone propionate 50 2 spray intranasal DAILY 04/20/24 mcg/actuation nasal spray,suspension insulin aspart U-100 100 unit/mL subcut 04/20/24 04/20/24 (3 mL) subcutaneous pen (Novolog FlexPen U-100 Insulin aspart) insulin glargine 100 unit/mL (3 24 unit subcut .qhs 04/20/24 04/20/24 mL) subcutaneous pen (Lantus Solostar U-100 Insulin) Previous Rx's ?Medication ?Instructions ?Recorded clotrimazole-betamethasone 1 1 appl topical BID 14 days #15 04/20/24 %-0.05 % topical cream grams lisinopril 40 mg tablet 40 mg PO DAILY #90 tabs 04/20/24 Allergies Allergy/AdvReac Type Severity Reaction Status Date / Time codeine [CODEINE] AdvReac Mild NAUSEA & Verified 02/05/25 22:10 VOMITING Review of Systems 2 Review of Systems: Yes all other systems are reviewed and are negative PMFSH Past Medical History Medical History Fracture Risk Assessment Score (FRAX) indicating greater than 3% risk for hip fracture Osteopenia Tobacco use disorder Closed traumatic displaced fracture of rib Skin rash Pure hypercholesterolemia Obesity with serious comorbidity Diabetes, polyneuropathy Anxiety Type I diabetes with complications Arthritis HTN (hypertension) Family History Family History Mother HTN (hypertension) Thyroid disorder Father HTN (hypertension) Cardiovascular disease Clotting disorder Stomach cancer Alcoholism Sister Primary biliary cholangitis Other High cholesterol Social History Social History Housing: House Patient Tobacco Use Status: Current everyday Tobacco user Cigarette Packs Per Day: 1 Years Smoked: 40 Smoked in Last 30 Days: Yes e-Cigarette/Vaping Use: Never Used Second Hand Smoke Exposure: No Use of substances other than those prescribed or required for medical reasons: No Advance Directives: No Advance Directives Information Provided: No Patient : No service: No Current occupational status: employed 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 Oriented X3. No acute distress. Eyes: No pallor or icterus ENT: Pharynx normal. Oral Mucosa moist Neck: Normal inspection. Neck supple. No midline tenderness CVS: Normal heart rate and rhythm. Pulses normal. Respiratory: No respiratory distress. Equal air entry bilateral, no wheezing/rales/rhonchi Abdomen: Soft and nontender. Bowel sounds are present, no mass palpable, no CVA tenderness Skin: Skin warm and dry. Normal skin color. Normal skin turgor. Extremities: No lower extremity edema. No calf tenderness left foot slight tenderness of the dorsum Neuro: Oriented X 3. No motor deficit. No sensory deficit.No cerebellar signs , cranial nerves II-XII intact Medical Decision Making Medical Decision Making MDM Narrative: Patient's hypoglycemic episodes which is likely iatrogenic with miscalculated of the carbohydrate according to patient at this time patient had contusion of the left foot but able to ambulate will discharge patient home advised ibuprofen for the pain patient has had transient hypotension likely the cause for lactic acidosis clinically patient is not septic/bacteremia Differential Diagnosis Differential Diagnoses: The differential diagnosis associated with the presentation includes Hyperglycemia/metabolic encephalopathy/cardiac arrhythmias/UTI Lab Data [facility] Lab Attestation statement: I reviewed the patient's lab results. 02/05/25 22:49 02/05/25 22:49 Labs: Lab Results 02/05/25 02/05/25 02/06/25 Range/Units 22:03 22:49 00:15 WBC 10.2 (4.8-10.8) X10*3/uL RBC 4.30 (4.20-5.50) X10*6/uL Hgb 13.8 (12.0-16.0) g/dl Hct 40.4 (37.0-47.0) % MCV 94.0 (80.0-98.0) fL MCH 32.1 (27.0-33.0) pg MCHC 34.2 (31.0-35.0) g/dl RDW 13.3 (11.0-16.0) % Plt Count 244 (160-400) X10*3/uL MPV 10.9 (9.4-12.3) fL Immature Gran % (Auto) 0.4 (0.0-0.4) % Neut % (Auto) 52.7 (45-73) % Lymph % (Auto) 35.4 (20-40) % [place] % (Auto) 8.0 (2-11) % Eos % (Auto) 2.2 (0-4) % Baso % (Auto) 1.3 (0-2) % Lymph # (Auto) 3.6 (1.2-4.9) X10*3/uL [place] # (Auto) 0.8 (0.1-1.2) X10*3/uL Eos # (Auto) 0.2 (0.0-0.4) X10*3/uL Baso # (Auto) 0.1 (0.0-0.2) X10*3/uL Abs Immat Gran (auto) 0.04 H (0.00-0.03) X10*3/uL Absolute Neuts (auto) 5.4 (2.0-8.3) x10*3/uL Absolute Nucleated RBC 0.000 (0.0-0.012) X10*3/uL Nucleated RBC % (auto) 0.0 (0.0-0.2) /100WBC Sodium 138 (135-145) mmol/L Potassium 3.9 (3.3-5.1) mmol/L Chloride 102 (96-108) mmol/L Carbon Dioxide 26 (22-29) mmol/L Anion Gap 14 (12-20) BUN 16 (9-16) mg/dL Creatinine 1.03 (0.5-1.4) mg/dL Estim Creat Clear Calc 60.1 Estimated GFR 54 POC Glucose 135 H (60-115) mg/dL Random Glucose 114 (60-115) mg/dL Lactic Acid 2.6 H* (0.5-2.0) mmol/L Calcium 9.6 (8.4-10.2) mg/dL Magnesium 2.0 (1.6-2.6) mg/dL Total Bilirubin 0.3 (0.0-1.0) mg/dL AST 19 (5-31) U/L ALT 14 (0-31) U/L Alkaline Phosphatase 71 (39-117) U/L Total Protein 6.9 (6.5-8.0) g/dL Albumin 4.2 (3.5-5.0) g/dL Urine Color Yellow Urine Appearance Clear Urine pH 7.5 (5.0-9.0) Ur Specific [place] 1.010 (1.005-1.025) Urine Protein Negative (Neg-Trace) mg/dL Urine Glucose (UA) 250 H (Negative) mg/dL Urine Ketones Negative (Negative) mg/dL Urine Blood Negative (Negative) Urine Nitrite Negative (Negative) Ur Leukocyte Esterase Trace H (Negative) Urine RBC 0-2 (0-2) /HPF Urine WBC 0-5 (0-5) /HPF Ur Squamous Epith Cells 0-2 (0-2) /HPF Urine Bacteria None Seen (None Seen) Hyaline Casts 0-2 (0-2) /LPF Discharge Plan Discharge Clinical Impression: Diabetic hypoglycemia, Contusion of foot, right Patient Disposition: Home, Self-Care Instructions: Hypoglycemia in a Person with Diabetes (DC), Basic Carbohydrate Counting (DC) Additional Instructions: Care and cautions as advised when you take insulin remember to eat well Follow with your PCP if any concerns Tylenol/Motrin for pain in the foot Prescriptions: No Action simvastatin 40 mg tablet PO (DME) pen needle, diabetic [BD Ultra-Fine Short Pen Needle] 31 gauge x 5/16 needle See Rx Instructions .ROUTE QID Qty: 1200 Rx Instructions: As directed cholecalciferol (vitamin D3) 50 mcg (2,000 unit) tablet 50 mcg PO DAILY fluticasone propionate 50 mcg/actuation spray,suspension 2 spray intranasal DAILY Rx Instructions: administer into each nostril insulin glargine [Lantus Solostar U-100 Insulin] 100 unit/mL (3 mL) insulin pen 24 unit subcut .qhs insulin aspart U-100 [Novolog FlexPen U-100 Insulin] 100 unit/mL (3 mL) insulin pen subcut Rx Instructions: 14-18 units per sliding scale lisinopril 40 mg tablet 40 mg PO DAILY Qty: 90 3RF clotrimazole-betamethasone 1-0.05 % cream 1 appl topical BID 14 Days Qty: 15 0RF Print Language: Arabic
[2025-02-05 22:15] LABS: Glucose, Whole Blood 135 mg/dL (60-115)
--- NOTE | 2025-02-05 22:18 | ECG_ITS ---
Test Reason : syncope Blood Pressure : */* mmHG Vent. Rate : 67 BPM Atrial Rate : 67 BPM P-R Int : 132 ms QRS Dur : 84 ms QT Int : 420 ms P-R-T Axes : 65 81 52 degrees QTcB Int : 443 ms Normal sinus rhythm Normal ECG When compared with ECG of 01-Mar-2021 22:16, No significant change was found Referred By: Dmitry Aranda Electronically Signed By: SHERON MORENO
[2025-02-05 22:57] LABS: MANUAL DIFF FLAG NO
[2025-02-05 22:58] LABS: Basophils Absolute Auto 0.1 X10*3/uL (0.0-0.2); Basophils Percent Auto 1.3 % (0-2); Eosinophils Absolute Auto 0.2 X10*3/uL (0.0-0.4); Eosinophils Percent Auto 2.2 % (0-4); Hematocrit 40.4 % (37.0-47.0); Hemoglobin 13.8 g/dl (12.0-16.0); Imm Gran Abs Auto 0.04 X10*3/uL (0.00-0.03); Imm Gran Pct Auto 0.4 % (0.0-0.4); Lymphocytes Absolute Auto 3.6 X10*3/uL (1.2-4.9); Lymphocytes Percent Auto 35.4 % (20-40); Mean Corpuscular HGB Conc 34.2 g/dl (31.0-35.0); Mean Corpuscular Hemoglobin 32.1 pg (27.0-33.0); Mean Platelet Volume 10.9 fL (9.4-12.3); Monocytes Absolute Auto 0.8 X10*3/uL (0.1-1.2); Neutrophils Absolute Auto 5.4 x10*3/uL (2.0-8.3); Neutrophils Percent Auto 52.7 % (45-73); Platelet Count 244 X10*3/uL (160-400); Red Cell Distribution Width 13.3 % (11.0-16.0); White Blood Count 10.2 X10*3/uL (4.8-10.8)
[2025-02-05 23:11] VITALS: BP 149/44; PULSE 70; RESP 20; TEMP 36.4; O2SAT 97
[2025-02-05 23:14] LABS: Alanine Aminotransferase 14 U/L (0-31); Albumin Level 4.2 g/dL (3.5-5.0); Alkaline Phosphatase 71 U/L (39-117); Anion Gap 14 (12-20); Aspartate Amino Transferase 19 U/L (5-31); Bilirubin Total 0.3 mg/dL (0.0-1.0); Blood Urea Nitrogen 16 mg/dL (9-16); Calcium 9.6 mg/dL (8.4-10.2); Carbon Dioxide 26 mmol/L (22-29); Chloride 102 mmol/L (96-108); Creatinine Clr Calc Pharmacy 60.1; Estimated Glomerular Filt Rate 54; Glucose Random 114 mg/dL (60-115); Potassium 3.9 mmol/L (3.3-5.1); Sodium 138 mmol/L (135-145); Total Protein 6.9 g/dL (6.5-8.0)
[2025-02-05 23:18] VITALS: BP 149/44; PULSE 70; RESP 20; TEMP 36.4; O2SAT 97
[2025-02-05 23:22] LABS: Lactic Acid 2.6 mmol/L (0.5-2.0)
[2025-02-06 00:21] LABS: Appearance Urine Clear; Color Urine Yellow; Glucose Urine UA 250 mg/dL (Negative); Leukocyte Esterase Urine Trace (Negative); Nitrite Urine Negative (Negative); PH 7.5 (5.0-9.0); UMIC TRIGGER UACC YES; Urine Blood Negative (Negative); Urine Ketones Negative (Negative); Urine Protein Negative (Neg-Trace)
[2025-02-06 00:23] LABS: Bacteria Urine None Seen (None Seen); Hyaline Casts Urine 0-2 /LPF (0-2); RBC Urine 0-2 /HPF (0-2); Squamous Epithelial Cell Urine 0-2 /HPF (0-2); WBC Urine 0-5 /HPF (0-5)
[2025-02-06 00:54] LABS: Reflex Lactate? Lactic Acid Added
[2025-02-06 01:04] LABS: Glucose, Whole Blood 153 mg/dL (60-115)
--- NOTE | 2025-02-06 01:04 | MHC.EDTECH ---
No blood work necessary per provider.
[2025-02-06 01:05] VITALS: BP 199/72; PULSE 80; RESP 16; TEMP 36.6; O2SAT 95
[2025-02-06 01:21] VITALS: BP 199/72; PULSE 80; RESP 16; TEMP 36.6; O2SAT 95
== END 2025-02-06 01:22 | disposition home or self-care (01) ==
PROVIDERS: Emergency Provider Internal Medicine; PCP Physician Assistant Medical
DX: I95.9 Hypotension, unspecified (principal); E11.649 Type 2 diabetes mellitus with hypoglycemia without coma; R55 Syncope and collapse; M25.572 Pain in left ankle and joints of left foot; R11.10 Vomiting, unspecified; Z79.4 Long term (current) use of insulin; F17.210 Nicotine dependence, cigarettes, uncomplicated; Z79.899 Other long term (current) drug therapy
CPT/HCPCS: 36415; 71045; 73610; 80053; 81001; 82947; 83605; 83735; 85025; 87040; 93005; 99283; 99284

== ENCOUNTER → 2025-02-05 22:18 | Outpatient (BNV) | payer OTHER, SELFPAY | PROVIDERS: Emergency Provider Internal Medicine; PCP Physician Assistant Medical; Visit Provider Internal Medicine | DX: R55 Syncope and collapse (principal) | CPT/HCPCS: 93010 ==

== ENCOUNTER → 2025-02-05 22:18 | Outpatient (BNV) | payer OTHER, SELFPAY | PROVIDERS: Emergency Provider Internal Medicine; PCP Physician Assistant Medical; Visit Provider Radiology Diagnostic Radiology | DX: R55 Syncope and collapse (principal); R11.10 Vomiting, unspecified; S90.32XA Contusion of left foot, initial encounter; W19.XXXA Unspecified fall, initial encounter | CPT/HCPCS: 71045; 73610 ==

== ENCOUNTER 2025-02-18 08:56 | Outpatient (AMB) | payer OTHER, SELFPAY ==
--- NOTE | 2025-02-18 09:00 | A.OFFPC_ITS ---
Vital Signs 02/18/25 09:06 Height 5 ft 2.5 in Weight 189 lb 6 oz BMI 34.1 BP 160/90 H Blood Pressure Location Lt brachial Position Sitting Respiration 16 Pulse 91 Pulse Source Pulse Oximeter Temp 97.8 F Temp Source Temporal Artery Scan Pulse Oximetry (%) 98 Oxygen Delivery Method Room Air Intake Visit Reasons: routine follow up Intake Note: Migdalia presents in the office today for a routine follow up. Patient has a recent hospital visit. Allergies codeine (CODEINE) Adverse Reaction (Mild, Verified 02/18/25 09:02) NAUSEA & VOMITING Tobacco use date assessed: 02/18/25 Dental Screening Dental Screen Date: 02/18/25 Did you have a dental visit in the last 12 months?: Yes Did you have a dental problem in the last 6 months where you did not have access to dental care?: No Was dental information given to patient?: Patient has dentist HPI HPI Comments History of Present Illness Details This is a 60-year-old female with a past medical history of type 1 diabetes, hypertension, tobacco use disorder, diabetic polyneuropathy and hypercholesterolemia presenting for follow up. Type 1 diabetes-she was diagnosed over 30 years ago. Patient was seen at the emergency department 02/05/2025. She was taken there by ambulance due to hypoglycemia. She reported taking 8 units of Humalog, and she ate a smaller amount of food than usual. She was then working on a cabinet with her sister and started to feel symptoms of low blood sugar. She started to have juice and peanut butter cookies. She slumped down off chair without any significant head injury, but she injured her left foot/ankle. X-ray negative for fracture. Her sister witnessed the entire event and says that she was unconscious with her eyes rolled back and she vomited. Per EMS no seizure. Blood pressure was 69/40 and she received 400 cc of normal saline and blood pressure on arrival was 140/50. She reports 3-4 similar episodes over the past 5 years with hypoglycemia. Currently seen at [facility] endocrinology, but she requests [place] [facility] We have discussed insulin pump and CGM in the past, but she declined. She does not want an insulin pump, but she is interested in a CGM. Last Hemoglobin A1c here 8.8% October. Patient says she never could get her A1c less than 7%. When her A1c was in the sevens in the past she had hypoglycemic episodes frequently and then would have rebound hyperglycemia with treatment. She takes 8-12 Novolog sliding scale and Lantus 26 units daily. She saw Podiatry 2 days ago, and they did additional x-rays. There is nothing broken, but she has a contusion. Hyperlipidemia treated with simvastatin. She is on 40 mg of lisinopril for hypertension. Her blood pressure is not well- controlled. Tobacco use-The patient started smoking at age 13. She has smoked half a pack to a full pack daily since then. She continues to decline CT screening for lung cancer. Denies cough, wheezing, shortness of breath, hemoptysis. ROS: Constitutional: No unexplained weight loss, fever, chills, fatigue or night sweats. Respiratory: No shortness of breath, hemoptysis, cough or sputum production. Cardiovascular: No chest pain, no pedal edema. Gastrointestinal: No abdominal pain Neurologic: No numbness or tingling, no headache or loss of consciousness. Skin: No redness or bruising. Physical exam: Constitutional: Alert, in no distress. Eyes: Pupils are equal, round and reactive to light. Extraocular muscles intact. Neck: Supple, Full range of motion. No lymphadenopathy. No palpable thyroid masses. Respiratory: Clear to auscultation. Cardiovascular: S1 S2 regular. No murmurs. No carotid bruits. Psychiatric: Normal mood and affect Foot: DP pulses intact. No edema. Ecchymosis of the toes on the left foot and mild faded ecchymosis on the medial aspect of the left foot. [facility] Medical History (Updated 02/18/25 @ 13:51 by SUNITA Mathis) Contusion of left foot Hypoglycemia Fracture Risk Assessment Score (FRAX) indicating greater than 3% risk for hip fracture Osteopenia Tobacco use disorder Closed traumatic displaced fracture of rib Skin rash Pure hypercholesterolemia Obesity with serious comorbidity Diabetes, polyneuropathy Anxiety Type I diabetes with complications Arthritis HTN (hypertension) Family History Mother HTN (hypertension) Thyroid disorder Father HTN (hypertension) Cardiovascular disease Clotting disorder Stomach cancer Alcoholism Sister Primary biliary cholangitis Other High cholesterol Social History (Updated 02/18/25 @ 09:04 by Venessa Wray MA) Housing: House Alcohol intake: current Patient Tobacco Use Status: Current everyday Tobacco user Cigarette Packs Per Day: 1 Years Smoked: 40 e-Cigarette/Vaping Use: Never Used Second Hand Smoke Exposure: No service: No Current occupational status: employed 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 1. Little interest or pleasure in doing things: more than half the days 2. Feeling down, depressed, or hopeless: several days 3. Trouble falling or staying asleep, or sleeping too much: not at all 4. Feeling tired or having little energy: not at all 5. Poor appetite or overeating: not at all 6. Feeling bad about yourself - or that you are a failure or have let yourself or your family down: not at all 7. Trouble concentrating on things, such as reading the newspaper or watching television: not at all 8. Moving or speaking so slowly that other people could have noticed. Or the opposite - being so fidgety or restless that you have been moving around a lot more than usual: not at all 9. Thoughts that you would be better off or of hurting yourself in some way: not at all Total score: 3 Depression Screening Interpretation: Negative Depression Screening Done: Yes 11194 - PHQ-9 Billing: Yes Source: Developed by Drs. Taiwo Myers, Valentine Buckley, Jd Garcia and colleagues, with an educational rebeca from [employer]. Thrive Questionnaire Date Thrive assessed: 02/18/25 I am a: Patient What is your living situation today?: I choose not to answer this question Within the past 12 months, did the food you bought not last and you didn't have the money to get more?: I choose not to answer this question Within the past 12 months, did you worry whether your food would run out before you got money to buy more?: I choose not to answer this question Do you have trouble paying for medicines?: I choose not to answer this question Do you have trouble getting transportation to medical appointments?: I choose not to answer this question Do you have trouble paying your heating and electricity bill?: I choose not to answer this question Do you have trouble taking care of your child, family member or friend?: I choose not to answer this question Do you have trouble with day-to-day activities such as bathing, preparing meals, shopping, managing finances, etc.?: I choose not to answer this question Are you currently unemployed and looking for a job?: I choose not to answer this question Are you interested in more education?: I choose not to answer this question Please select the resources that you would like help with: None Currently or been in a relationship where the following occur: I choose not to answer THRIVE Score: 0 AUDIT C Alcohol Use Questionnaire (AUDIT-C) 1. How often do you have a drink containing alcohol?: Monthly or less 2. How many drinks containing alcohol do you have on a typical day when you are drinking?: 1 or 2 3. How often do you have six or more drinks on one occasion?: Never Total Score: 1 JUANITA-7 AMB Questionnaire JUANITA-7 Date JUANITA - 7 assessed: 02/18/25 Feeling nervous, anxious, or on edge: 0 = Not at all Not being able to stop or control worryin = Several days Worrying too much about different things: 1 = Several days Trouble relaxin = Not at all Being so restless that it is hard to sit still: 0 = Not at all Becoming easily annoyed or irritable: 0 = Not at all Feeling afraid as if something awful might happen: 1 = Several days Total JUANITA-7 score (0-4 normal; 5-9 mild; 10-14 moderate; 15-21 severe): 3 Source: Developed by Drs. Taiwo Myers, Valentine Buckley, Jd Garcia and colleagues, with an educational rebeca from [employer]. JUANITA-7 Assessment Billing JUANITA-7 Assessment Tool: JUANITA-7 Assessment 12906 Physical exam (Primary Care) Vital Signs: Last Vital Signs Temp 97.8 F 02/18/25 09:06 Pulse 91 02/18/25 09:06 Resp 16 02/18/25 09:06 BP 160/90 H 02/18/25 09:06 Pulse Ox 98 02/18/25 09:06 Oxygen Delivery Method Room Air 02/18/25 09:06 BMI result Body Mass Index 34.1 Tobacco/Smoking Status: Tobacco use Status Tobacco use date assessed 02/18/25 02/18/25 09:10 Patient Tobacco Use Status Current everyday Tobacco 02/18/25 09:04 e-Cigarette/Vaping Use Never Used 02/18/25 09:04 PHQ-9: PHQ-9 Score PHQ-9: Total score 3 02/18/25 09:11 Depression Screening Interpretation: Negative Thrive Assessment: Date of Thrive Assessment Date Thrive assessed 02/18/25 02/18/25 09:10 Currently or been in a relationship where the following occur: I choose not to answer Coding Level of Care Code Est Pt Level 5 (67981) Complex EM visit Add On G2211 Diagnoses Tobacco use disorder F17.200 Type I diabetes with complications E10.8 Primary hypertension I10 Hypertension type: primary hypertension Hypoglycemia E16.2 Contusion of left foot S90.32XA Pure hypercholesterolemia E78.00 Additional Codes JUANITA-7 Assessment Billing - JUANITA-7 Assessment Tool: JUANITA-7 Assessment 32355 ([id number]) PHQ-9 - 79186 - PHQ-9 Billing: Yes ([id number]) Assessment & Plan Assessment & Plan (1) Tobacco use disorder: Code(s): F17.200 - Nicotine dependence, unspecified, uncomplicated Category: Medical Plan: Strongly recommended cessation. Patient declines at this time. We also discussed LDCT. She declines. (2) Type I diabetes with complications: Code(s): E10.8 - Type 1 diabetes mellitus with unspecified complications Category: Medical Plan: Chronically uncontrolled. [place]erral [place] [facility] [place]. Refer to consumer educator. CGM ordered. Medically necessary due to type 1 diabetes and problematic hypoglycemia. Continue current insulin regimen. Recommended annual eye exams. (3) HTN (hypertension): Code(s): I10 - Essential (primary) hypertension Category: Medical Qualifiers: Hypertension type: primary hypertension Qualified Code(s): I10 - Essential (primary) hypertension Plan: Recommended low-sodium diet, avoidance of caffeine. Continue lisinopril 40 mg daily. Add amlodipine 5 mg daily. (4) Hypoglycemia: Code(s): E16.2 - Hypoglycemia, unspecified Category: Medical Plan: Reviewed written instructions to treat hypoglycemia. Sent glucose tablets, glucose gel and Baqsimi to the pharmacy. Baqsimi is medically necessary given loss of consciousness/unresponsiveness with hypoglycemia. (5) Contusion of left foot: Code(s): S90.32XA - Contusion of left foot, initial encounter Category: Medical Plan: Seen by podiatry. Continue conservative management. This is improving. (6) Pure hypercholesterolemia: Code(s): E78.00 - Pure hypercholesterolemia, unspecified Category: Medical Plan: Since we are starting amlodipine she will discontinue simvastatin and switch to atorvastatin. She will have labs done in 6 weeks. Plan Declines colonoscopy. Cologuard ordered. Follow up in 7 weeks to review labs. Orders: Orders Lipid Panel 6 Weeks E10.8 - Type 1 diabetes mellitus with unspecified complications, E78.5 - Hyperlipidemia, unspecified TSH reflex Free T4 6 Weeks E10.8 - Type 1 diabetes mellitus with unspecified complications Microalbumin, Random (w Creat) 6 Weeks E10.8 - Type 1 diabetes mellitus with unspecified complications Hemoglobin A1c 6 Weeks E10.8 - Type 1 diabetes mellitus with unspecified complications, E11.9 - Type 2 diabetes mellitus without complications Comprehensive Met. Panel 6 Weeks E10.8 - Type 1 diabetes mellitus with unspecified complications Referrals Diabetes Education Referral E10.8 - Type 1 diabetes mellitus with unspecified complications Endocrinology Referral E10.8 - Type 1 diabetes mellitus with unspecified complications Cologuard Test Z12.11 - Encounter for screening for malignant neoplasm of colon Medications: New glucagon 3 mg/actuation (Baqsimi) 3 mg (one actuation) into a single nostril; if no response, may repeat in 15 minutes using a new intranasal device 3 mg intranasal ONCE 2 ea 3RF atorvastatin (Lipitor) 20 mg PO BEDTIME 90 tabs 1RF blood-glucose,pump house engineer,cont (FreeStyle Steve 3 [place]) Use daily to monitor blood glucose levels continuously. 1 ea 0RF blood-glucose sensor (FreeStyle Steve 3 Plus Sensor device) Apply 1 new sensor every 15 days as directed to monitor blood glucose continuously. 2 ea 11RF dextrose (TRUEplus Glucose) until symptoms of low blood sugar are controlled 15 grams (32 mL) PO Q15M PRN 128 mL 5RF hypoglycemia glucose (Dex4 Glucose Quick Dissolve) until symptoms of low blood sugar are controlled 16 grams (4 x 4 gram) PO Q15M PRN 30 tabs 3RF hypoglycemia amlodipine 5 mg PO DAILY 90 tabs 1RF Refilled lisinopril 40 mg PO DAILY 90 tabs 3RF Patient Instructions: If you experience low blood sugar, treat this by eating a chewable fruit candy like skittles or jelly beans (about 8 pieces), 4 ounces (1/2 cup) of fruit juice (not diet), 1 tablespoon of honey or 4 glucose tablets or 1 pack of glucose gel. If your blood sugar is under 55, take double the amount of one of the above. Recheck your blood sugar in 15 minutes.
[2025-02-18 09:06] VITALS: BP 160/90; PULSE 91; RESP 16; TEMP 36.6; O2SAT 98; BMI 34.1
--- OUTSIDE RECORDS SUMMARY | 2025-02-18 09:28 | XMS_ITS | Clinical Summary ---
Author Organization [facility] [address] [place] [address] Address [address] [place] [address] Phone Care Team Providers Care Ship Painter Helper Name Role Phone AshleyRika johnson Rosalinda DORSEY Primary Care Provider [phone] Allergies Active Allergy Reactions Criticality Noted Date Comments Codeine Sulfate Nausea And Vomiting 11/02/2011 Medications lisinopril (PRINIVIL,ZESTR IL) 40 mg tablet Take 1 tablet (40 mg total) by mouth 1 (one) time each day. for 180 days. 4 Active insulin aspart (NovoLOG Flexpen U-100 Insulin) 100 unit/mL (3 mL) injection pen Inject 14 Units under the skin 3 (three) times a day before meals. According to carb intake/sliding scale 4 Active sertraline (ZOLOFT) 100 mg tablet Take 1 tablet (100 mg total) by mouth 1 (one) time each day. 4 Active ALPRAZolam (XANAX) 0.5 mg tablet Take 1 tablet (0.5 mg total) by mouth at bedtime as needed for sleep. Take 0.5 Tablets by mouth at bedtime as needed for Sleep. 4 Active pen needle, diabetic (BD Ultra-Fine Short Pen Needle) 31 gauge x 5/16 needle 1 each by Other route 4 (four) times a day. Insulin Pen Needle (B-D ULTRAFINE III SHORT PEN) 31G X 8 MM Misc 3 Active multivit with calcium,iron,mi n (MULTIPLE VITAMIN, WOMENS ORAL) Take 1 tablet by mouth 1 (one) time each day. Active cholecalciferol (VITAMIN D-3) 50 mcg (2,000 unit) capsule Take 1 capsule (2,000 Units total) by mouth 1 (one) time each day. 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 ([facility] V24, [facility] V28) 07/10/2017 Tobacco use disorder 06/24/2015 Encounters Date Type Department Care Team Description 11/23/2024 4:20 PM EDT Office Visit Endocrinology [address] [address] Michelle Lezama PA Type 1 diabetes mellitus with cataract ([facility] V24, [facility] V28) (Primary Dx); Primary hypertension; Hypercholesteremia from Last 3 Months Immunizations Name Administration [...] 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 ([facility] V24, [facility] V28) 07/10/2017 DX:Type 1 diabetes mellitus with cataract ([facility]) Cataract 07/10/2017 DX:Cataract; COM MENT: bilateral Tobacco use disorder 06/24/2015 DX:Tobacco use disorder Family History Medical History Relation Name Comments Breast cancer Aunt maternal Hypertension Father [place] Lung cancer Maternal Grandfather Arthritis Maternal Grandmother Hypertension Mother arthritis Relation Name Status Comments Aunt Father Alive Maternal Grandfather Maternal Grandmother Mother Alive Social History Tobacco Use Types Packs/Day Years Used Date Smoking Tobacco: Every Day Cigarettes 1 42.5 Started: 09/02/1982 Smokeless Tobacco: Never Tobacco Cessation:Ready [...] Sign Reading Time Taken Comments Blood Pressure 148/76 11/23/2024 4:15 PM EDT Pulse 73 11/23/2024 4:15 PM EDT Temperature 35.8 C (96.4 F) 11/23/2024 4:15 PM EDT Respiratory Rate - - Oxygen Saturation 95% 11/23/2024 4:15 PM EDT Inhaled Oxygen Concentration - - Weight 88.8 kg (195 lb 12.8 oz) 11/23/2024 4:15 PM EDT Height 157.5 cm (5' 2 ) 11/23/2024 4:15 PM EDT Body Mass Index 35.81 11/23/2024 4:15 PM EDT Plan of Treatment Upcoming Encounters Date Type Department Care Team (Late st Contact Info) Description 06/25/2025 4:20 PM EDT Office Visit Endocrinology - [place] [address] [place] [address] Michelle Lezama PA [address] [place] [address] Health Maintenance Due Date Last Done Comments [...] Influencers of Health Screening 08/11/2022 RSV Immunization Adult Patients (1 - Risk 60-74 years 1-dose series) [...] age to complete this topic Meningococcal B Vaccine Aged Out No l onger eligible based on patient's age to complete [...] Blood Venous blood specimen / Unknown Result [facility] Provider LAB BLOOD ORDERABLES Geno l Result * Annual BMP Blood Test (02/06/2024) [facility] Annual BMP Blood Test abstracted Result [facility] Provider HEALTH MAINTENANCE Final Result * Lipid panel (02/06/2024) [facility] LDL/HDL Ratio 2 0 - 4 Triglycerides 57 0 - 150 mg/dL Cholesterol 173 0 - 200 mg/dL HDL 77 >=40 mg/dL LDL Cholesterol 85 0 - 100 mg/dL Blood Venous blood specimen / Unknown Result [facility] Provider LAB BLOOD ORDERABLES Geno l Result * Diabetes Eye Exam (12/17/2023) [facility] Diabetes: Annual Retina Eye Exam abstracted Result [facility] Provider HEALTH MAINTENANCE Final Result * Urine Albumin Creatinine Ratio (08/19/2023) [facility] Urine Albumin Creatinine Ratio abstracted Result [facility] Provider HEALTH MAINTENANCE Final Result * Cervical Cancer Screening: HPV (05/24/2022) [facility] Cervical Cancer Screening: HPV negative, abstracted Result [facility] Provider HEALTH MAINTENANCE Final Result * Hepatitis C Screening (12/15/2012) [facility] Hepatitis C Screening abstracted Result [facility] Provider HEALTH MAINTENANCE Final Result from Last 3 Months or Most Recently Relevant to Health Maintenance Insurance [employer] Care Teams Ship Painter Helper Relationship Specialty Start Date End Date Rika Ramirez PA [address] [place] [address] PCP - General Physician Knockout Man 11/23/24
== END 2025-02-18 09:49 | disposition home or self-care (01) ==
LOC: HO.HMCFM 08:56
PROVIDERS: PCP Physician Assistant Medical; Visit Provider Physician Assistant Medical
DX: E10.8 Type 1 diabetes mellitus with unspecified complications (principal); F17.200 Nicotine dependence, unspecified, uncomplicated; I10 Essential (primary) hypertension; E16.2 Hypoglycemia, unspecified; S90.32XA Contusion of left foot, initial encounter; E78.00 Pure hypercholesterolemia, unspecified

== ENCOUNTER → 2025-02-18 08:56 | Outpatient (BNVA) | payer OTHER, SELFPAY | PROVIDERS: PCP Physician Assistant Medical; Visit Provider Physician Assistant Medical | DX: E10.649 Type 1 diabetes mellitus with hypoglycemia without coma (principal); I10 Essential (primary) hypertension; E78.00 Pure hypercholesterolemia, unspecified; S90.32XD Contusion of left foot, subsequent encounter; F17.210 Nicotine dependence, cigarettes, uncomplicated; Z79.899 Other long term (current) drug therapy; Z13.31 Encounter for screening for depression; Z13.30 Encounter for screening examination for mental health and behavioral disorders, unspecified | CPT/HCPCS: 96127 ==

== ENCOUNTER 2025-03-09 10:45 | Outpatient (AMB) | payer OTHER, SELFPAY ==
--- NOTE | 2025-03-09 10:47 | A.OFFVIS_ITS ---
Vital Signs 03/09/25 10:48 03/09/25 11:56 Height 5 ft 2.5 in Weight 191 lb 12.835 oz BMI 34.5 BP 178/84 H 180/90 H Blood Pressure Location Lt brachial Lt brachial Position Sitting Pulse 81 Pulse Source Pulse Oximeter Pulse Oximetry (%) 98 Oxygen Delivery Method Room Air Intake Visit Reasons: Type 1 diabetes mellitus with unspecified complica Intake Note: Patient present today for Type 1 Diabetes Mellitus Last Diabetic eye exam: 10/2024 Last Podiatry Visit: 01/2025 Random Glucose: 293 mg/dl HgA1C: 8.7% Control Valve Technician Required: No Accompanied by: Self / Same As Patient Allergies codeine (CODEINE) Adverse Reaction (Mild, Verified 03/09/25 10:53) NAUSEA & VOMITING Medication List - Last Reconciled 03/09/25 by Tammi Paul MD amlodipine 5 mg PO DAILY atorvastatin (Lipitor) 20 mg PO BEDTIME blood-glucose sensor (ideasoftStyle Steve 3 Plus Sensor device) Apply 1 new sensor every 15 days as directed to monitor blood glucose continuously. blood-glucose,regional director of admissions,cont (FreeStyle Steve 3 [place]) Use daily to monitor blood glucose levels continuously. cholecalciferol (vitamin D3) 50 mcg PO DAILY dextrose (TRUEplus Glucose) 15 grams (32 mL) PO Q15M PRN fluticasone propionate 50 mcg/actuation 2 sprays intranasal DAILY glucagon 3 mg/actuation (Baqsimi) 3 mg intranasal ONCE glucose (Dex4 Glucose Quick Dissolve) 16 grams (4 x 4 gram) PO Q15M PRN insulin aspart U-100 (Novolog FlexPen U-100 Insulin aspart) 8-12 units per sliding scale insulin glargine (Lantus Solostar U-100 Insulin) 26 units subcutaneously QHS; lisinopril 40 mg PO DAILY pen needle, diabetic (BD Ultra-Fine Short Pen Needle) As directed HPI Comments Details: 60-year-old female with a history of type 1 diabetes mellitus with long-term insulin use coming in today to establish care History of diabetes Was following at [facility], last endo visit December or December 2024, wanted to switch care Was diagnosed at age 30, pills were ineffective and she became insulin dependent, TRACEE? Prior therapy: Current regimen: Insulin Novolog 8 to 14 units TID carb ratio ? more like follows, thinks at some point it was 1 unit for every 15, 1 unit for every 50 sensitivity to target to 100 Insulin Lantus 26 units HS Denies any hospitalizations for DKA . Severe hypoglycemic event leading to seizure 2 month ago December 2024. Start having hypoglycemic symptoms when sugars in 50s. Denies any symptoms of hyperglycemia including polyphagia, polyuria, polydipsia. SMBG's Didnt bring meter to this visit 4 times a day From recall Fasting : 150 to 200 Bedtime: around 200 Checks premeals and bedtime Picked up [employer] 3 plus with reader but hasnt set it up yet Doesmt like the insulin pumps but would be interested in seeing what is new out there A1c 8.4% POC 03/09/25 Vaccines:got flu shot last season, uptodate on covid vaccine both initial and booster Complications Eye exam: Last eye exam was October 2024, no retinopathy, in Greg , Neuropathy: no history , podiatry : [facility] Dr. Guerra, last seen January 2025 , recent toe injury Kidney disease: no history of kidney disease Macrovascular complications: No history of macrovascular complications. 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 Smoking : half a pack a day for 40 years or so , is not ready to try to quit at this time ALcohol: 2-3 beers here or there No drug use Lives by herself Physical exam General: sitting comfortably in no acute distress HEENT: normocephalic/atraumatic, EOM intact, moist oral mucosa Neck: supple Cardiac: normal heart sounds Pulm: normal breath sounds B/L, no added breath sounds Abd: not distended, no tenderness Extremities: no edema, no signs of myxedema Neuro: AAO x3, Speech: normal, no facial droop, moving all 4 extremities Skin: no rash Foot exam: intact sensation to monofilament, intact pulses, intact vibration Laboratory Tests 10/17/24 02/05/25 02/05/25 09:15 22:03 22:49 Creatinine 0.88 1.03 Estimated GFR > 60 54 POC Glucose 135 H Random Glucose 259 H Hemoglobin A1c % 8.8 H AST 17 19 ALT 11 14 Albumin 4.2 Triglycerides 48 Cholesterol 175 LDL Cholesterol, Calc 99 HDL Cholesterol 67 02/06/25 01:01 Creatinine Estimated GFR POC Glucose 153 H Random Glucose Hemoglobin A1c % AST ALT Albumin Triglycerides Cholesterol LDL Cholesterol, Calc HDL Cholesterol [facility] Medical History (Updated 03/09/25 @ 12:10 by Tammi Paul MD) HLD (hyperlipidemia) Contusion of left foot Hypoglycemia Fracture Risk Assessment Score (FRAX) indicating greater than 3% risk for hip fracture Osteopenia Tobacco use disorder Closed traumatic displaced fracture of rib Skin rash Pure hypercholesterolemia Obesity with serious comorbidity Diabetes, polyneuropathy Anxiety Type I diabetes with complications Arthritis HTN (hypertension) Family History Mother HTN (hypertension) Thyroid disorder Father HTN (hypertension) Cardiovascular disease Clotting disorder Stomach cancer Alcoholism Sister Primary biliary cholangitis Other High cholesterol Social History Housing: House Alcohol intake: current Patient Tobacco Use Status: Current everyday Tobacco user Cigarette Packs Per Day: 1 Years Smoked: 40 e-Cigarette/Vaping Use: Never Used Second Hand Smoke Exposure: No service: No Current occupational status: employed 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, 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 Current occupational exposures/hazards: No Cognitive needs: No Hearing needs: No Vision needs: Yes (glasses) Physical Exam Vital Signs: Last Vital Signs Pulse 81 03/09/25 10:48 BP 178/84 H 03/09/25 10:48 Pulse Ox 98 03/09/25 10:48 Oxygen Delivery Method Room Air 03/09/25 10:48 BMI result Body Mass Index 34.5 Results AMB Hemoglobin A1c AMB Hemoglobin A1c 8.7 % Last Edit by BATSHEVA Nguyen on 03/09/25 11:08 Results Reviewed Results Reviewed: Laboratory Last Values Glucose (Clinic) 293 mg/dL (60-115) H 03/09/25 10:58 Hgb A1c (Clinic) 8.7 % (4.0-6.0) H 03/09/25 11:01 Assessment & Plan Assessment & Plan (1) Type I diabetes with complications: Code(s): E10.8 - Type 1 diabetes mellitus with unspecified complications Category: Medical Plan: 60-year-old female with type 1 diabetes mellitus with long-term insulin use coming in today for initial evaluation. Was diagnosed at the age of 30, per patient she became insulin dependent, question of type 1 versus LAD a? Regardless she is insulin dependent now. I will check her antibody levels. As well as a C-peptide. Over the past 2-3 years she has had worsened control of her type 1 diabetes mellitus due to multiple deaths in the family including her . A1c POC 03/09/2025: 8.4%, she is on a basal bolus regimen, she did not bring her meter today but from recall most of her numbers have been around 200s. She is also having some hypoglycemia, and she could remember that she was having fasting hypoglycemia. I will reduce her Lantus. However I have very little data today for me to make any changes to her NovoLog. She has a obtained a Qiroe 3+ sensor and reader, she is going to make an appointment today with the educator for CGM application. In the meantime she should continue monitoring her blood sugars 4 times a day. She has a meter through her company, [employer]. But she says she has a enough supplies. We went over hypoglycemia education. She does have glucose tablets at home as well as nasal Baqsimi. She had a severe hypoglycemic event 2 months ago. Plan: -decrease Lantus to 24 units daily -continue current NovoLog regimen, she follows a rough carb ratio and sliding scale -referral placed to program management intern to go over carb ratios -referral placed for senior health educator for CGM education as well as other diabetes education -sent urine ketone strips -has nasal Baqsimi -hypoglycemia education done -foot examined today, intact sensation to monofilament, warm and well-perfused, follows with a value podiatry regularly -up-to-date on eye visit, no history of retinopathy -needs lipid panel, CMP, urine microalbumin, CBC, TSH, some of these orders already in place by her PCP -ordered C-peptide, glucose, crista and islet antibody levels -follow up in 4-5 weeks -advised to quit smoking, patient is not ready at this time -advised 30 minutes of exercise 5 days a week (2) HLD (hyperlipidemia): Code(s): E78.5 - Hyperlipidemia, unspecified Category: Medical Qualifiers: Hyperlipidemia type: mixed hyperlipidemia Qualified Code(s): E78.2 - Mixed hyperlipidemia Plan: No recent lipid panel in the system, she was recently started on atorvastatin 20 mg daily and she has had some issues with the adherence Plan: -obtain lipid panel (3) HTN (hypertension): Code(s): I10 - Essential (primary) hypertension Category: Medical Qualifiers: Hypertension type: primary hypertension Qualified Code(s): I10 - Essential (primary) hypertension Plan: Blood pressure elevated to 180/98 mm of mercury today. Her PCP recently added amlodipine to her regimen. If blood pressure continues to remain elevated, would likely need either addition of another agent or up titration of her amlodipine. She is also on lisinopril 40 mg daily. Plan: -continue to monitor blood pressure with blood pressure cuff at home Plan I spent 60 minutes in reviewing the record, seeing the patient and documenting in the medical record. Orders: Orders AMB Hemoglobin A1c Today E10.8 - Type 1 diabetes mellitus with unspecified complications, Z13.9 - Encounter for screening, unspecified Complete Blood Count no Diff Today E10.8 - Type 1 diabetes mellitus with unspecified complications Glutamic acid decarboxylase Ab Today E10.8 - Type 1 diabetes mellitus with unspecified complications Glucose Random Today E10.8 - Type 1 diabetes mellitus with unspecified complications Islet Cell Antibody Scrn/Titer Today E10.8 - Type 1 diabetes mellitus with unspecified complications C Peptide Today E10.8 - Type 1 diabetes mellitus with unspecified complications Referrals Charging Car Operator Nutrition Referral E10.8 - Type 1 diabetes mellitus with unspecified complications Medications: New insulin glargine (Lantus Solostar U-100 Insulin) 24 units (0.24 mL) subcut QPM 15 mL 5RF acetone (urine) test (Ketone Urine Test strips) As directed 50 ea 3RF insulin aspart U-100 (Novolog FlexPen U-100 Insulin aspart) subcutaneously 3 times a day; up to 14 units three times a day pre meals 15 mL 6RF Patient Instructions: Reduce lantus to 24 units daily For the novolog continue as it is See the program management intern See Yareli and get your sensor set up Follow up with podiatry and ophthalmoslogy Do fasting blood work and urine test 30 mins 5 days a week walking recommended Bring your meter to my visits till sensor is set up Rule of 15 Treatment for Hypoglycemia (Low blood sugar) If your blood glucose is low (70 and below)*, follow the steps below to treat: Eat or drink something from the list below equal to 15 grams of carbohydrate (carb). Rest for 15 minutes Re-check your blood glucose. If it is still low, (below 70), repeat step 1 above. ? If your next meal is more than an hour away, you will need to eat one carbohydrate choice as a snack to keep your blood glucose from going low again. ?If you can't figure out why you have low blood glucose, call your healthcare provider, as your medicine may need to be adjusted. ?Always carry something with you to treat an insulin reaction. Use food from the list below. ? Foods equal to One Carbohydrate Choice (15 grams of carbohydrate): 3 Glucose ?tablets or 4 Dextrose tablets 4 ounces of fruit juice 5-6 ounces (about 1/2 can) of regular soda such as Coke or Pepsi ? 7-8 gummy or regular Life Savers ? 1 Tbsp. of sugar or jelly NOTE: If your blood sugar is less than 50, double the portion above for a total of 30 gm. ?Carbohydrate. ? Follow meal plan of 45-60 g of consistent carbohydrates at 3 meals each day and 15 g of carbohydrate at 1-2 snacks each day. Coding Level of Care Code New Pt Level 5 (30169) Complex EM visit Add On G2211 Diagnoses Type I diabetes with complications E10.8 Mixed hyperlipidemia E78.2 Hyperlipidemia type: mixed hyperlipidemia Primary hypertension I10 Hypertension type: primary hypertension Time Spent (min) 60
[2025-03-09 10:48] VITALS: BP 178/84; PULSE 81; O2SAT 98; BMI 34.5
[2025-03-09 11:02] LABS: Glucose, Whole Blood 293 mg/dL (60-115)
--- OUTSIDE RECORDS SUMMARY | 2025-03-09 11:48 | XMS_ITS | Patient Health Record ---
[facility] Address [address] [place] [address] Care Team Providers Care Stiff Leg Derrick Operator Name Role Phone Rika Ramirez Primary Care Provider Roge Lord Unavailable [phone] Allergies Allergen (clinical drug ingredient) Drug/Non Drug Allergy documented on EMR Reaction Allergy Type Onset Date Status codeine Codeine Unknown Drug Allergy Active Results Component Value Reference Range Notes HEMOGLOBIN A1C (GLYCOHEMOGLO BIN) Reviewed date:02/16/2025 03:34:15 PM Interpretation: Performing Lab: Notes/Report: HEMOGLOBIN A1C % (HH) 8.3 Reason For Referral No Information Medications Medication SIG (Take, Route, Frequency, Duration) Notes Start Date End Date Status Luisa Allergy 1 tablet Orally; Dur ation: 30 day(s) Not-Taking Flonase Active HumaLOG Active Lantus Active Lisinopril 20 mg Act alberta Sertraline HCl Not-T aking Simvastatin Active ZyrTEC Allergy 10 MG 1 tablet as needed Orally Once a day PRN Active Immunizations Vaccine Route Administration Date Status Comme nts Influenza Unknown 06/15/2020 Administered Influenza Unknown 06/02/2024 Administered Pneumococcal Unknown 09/10/2017 Administered Social History Tobacco Use: Social History Observation Description Date Details (start date - stop date) Current Smoker 02/02/1980 - NA Tobacco use other than smoking: Question Answer Notes Are you an other tobacco user? No Tobacco Control (Standard) Question Answer Notes Tobacco use: Current smoker When did you start smoking? 02/02/1980 How often do you smoke cigarettes? Every day How many cigarettes a day do you smoke? 6-10 How soon after you wake up d o you smoke your first cigarette? 6-30 minutes Are you interested in quitting? Ready to quit Additional Findings: Tobacco user Modera te cigarette smoker (10-19 cigs/day) AUDIT-C (Standard) Question Answer Notes Did you have a drink containing alcohol in the p ast year? No Points 0 Interpretation Negative Problems Problem Type SNOMED Code ICD Code Onset Dates Problem Status W/U Status Risk Notes Problem Polyneuropathy due to diabetes mellitus type I ([id number]) Type 1 diabetes mellitus with diabetic polyneuropathy (E10.42) Active confirmed Vital Signs Blood pressure diastolic 65 mm Hg 02/16/2025 Height 5 ft 3 in in 02/16/2025 Blood pressure systolic 130 mm Hg 02/16/2025 Weight 180 lbs 02/16/2025 BMI 31.88 kg/m2 02/16/2025 Procedures Procedure Date Ordered Date Performed Result Body Sit e 97610-AHYCRER NAIL, 1-5 02/16/2025 N/A 46774-GCKJ SKIN LESIONS, OVER 4 02/16/2025 N/A [id number] DYSTROPHIC NAILS ANY # 02/16/2025 N/A Encounters Encounter Location Date Provider Diagnosis [facility] [place] [address] [place] [address] 02/16/2025 Roge Charlie Type 1 diabetes mellitus with diabetic polyneuropathy E10.42 ; Tinea unguium B35.1 ; Pain in left foot M79.672 and Contusion of left foot, initial encounter S90.32XA Assessments Encounter Date Diagnosis (ICD Code) Assessment Notes Treatment Notes Treatment Clinical Notes Section Notes 02/16/2025 Type 1 diabetes mellitus with diabetic polyneuropathy (ICD-10 - E10.42) 02/16/2025 Tinea unguium (ICD-10 - B35.1) 02/16/2025 Pain in left foot (ICD-10 - M79.672) 02/16/2025 Contusion of left foot, initial encounter (ICD-10 - S90.32XA) Plan Of Treatment Pending Test Test Name Order Date X ray : Foot, left 2V 11/30/2016 X ray : Foot, left 2V 12/23/2017 X ray : Foot, right 2V 12/23/2017 X ray : Foot, left 3V 02/16/2025 [id number] NAIL, 6 OR MORE 12/23/2017 [id number] NAIL, 6 OR MORE 05/13/2018 57666-[id number] NAIL, 6 OR MORE 05/14/2017 [id number] NAIL, 6 OR MORE 04/26/2015 [id number] NAIL, 6 OR MORE 05/15/2016 56726-[id number] NAIL, 6 OR MORE 09/18/2011 39342-IDOHRNY NAIL, 6 OR MORE 03/18/2012 74003-[id number] NAIL, 6 OR MORE 04/28/2013 [id number] NAIL, 6 OR MORE 04/27/2014 [id number]-VYXYABX NAIL, 1-5 02/16/2025 77111-PFZV SKIN LESIONS, OVER 4 02/17/20 25 35460-OLJJ SKIN LESIONS, OVER 4 05/19/20 19 20255-RYFB SKIN LESIONS, OVER 4 05/17/20 20 02465-PVOP SKIN LESIONS, OVER 4 05/16/20 21 24635-ECPH SKIN LESIONS, OVER 4 05/13/20 18 68809-IWKH SKIN LESIONS, OVER 4 04/27/20 14 99309-IMGR SKIN LESIONS, OVER 4 04/28/20 13 44874-LJOM SKIN LESIONS, OVER 4 03/18/20 12 41611-DYFU SKIN LESIONS, OVER 4 09/18/19 12 17885-MTEY SKIN LESIONS, OVER 4 05/15/20 16 94887-ILND SKIN LESIONS, OVER 4 04/26/20 15 23752-WIJO SKIN LESIONS, OVER 4 12/24/19 18 96871-TOIT SKIN LESIONS, OVER 4 05/14/20 17 [id number]-CYWBSOHB DYSTROPHIC NAILS ANY # Next Appt Details Provider Name:Roge Mae Charlie , 05/21/2025 09:30:00 AM, [address], [place], [address], Insurance Providers Payer Name Payer Address Payer Phone Subscriber Number Group Number Insured Name Patient Relationship to Insured Coverage Start Date Coverage End Date [facility] [id number] [address] [address] [place] [address] [id number] Migdalia Kovacs Self - patient is the insured Medical (General) History Medical History History ICD Code chicken pox type I diabetes Hypertension Surgical History Surgery Date(Month/Year) foot surgery Hospitalization History Reason Date(Month/Year) ER visit 05/12/2016 Fell broke shoulder 10/2021
--- OUTSIDE RECORDS SUMMARY | 2025-03-09 11:48 | XMS_ITS | Clinical Summary ---
Author Organization [facility] [address] [place] [address] Address [address] [place] [address] Phone Care Team Providers Care Laboratory Apparatus Glass Grinder Name Role Phone AshleyRika johnson Rosalinda DORSEY Primary Care Provider [phone] Allergies Active Allergy Reactions Criticality Noted Date [...] 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 ([facility] V24, [facility] V28) 07/10/2017 Tobacco use disorder 06/24/2015 Immunizations Name Administration Dates Next Due Influenza [...] 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 ([facility] V24, [facility] V28) 07/10/2017 DX:Type 1 diabetes mellitus with cataract (HCC) Cataract 07/10/2017 DX:Cataract; COM MENT: bilateral Tobacco use disorder 06/24/2015 DX:Tobacco use disorder Family History Medical History Relation Name Comments Breast cancer Aunt maternal Hypertension Father MD Lung cancer Maternal Grandfather Arthritis Maternal Grandmother [...] 4:20 PM EDT Office Visit Endocrinology - [place] [address] [place] [phone] Michelle Lezama PA [address] [place] [address] Health Maintenance Due Date Last Done Comments [...] BMP Blood Test 02/05/2025 02/06/2024, 02/06/2024, 02/06/2024 Influenza Vaccine (#1) 2025 , 09/20/2023, 07/14/2021, Additional history exists Cervical Cancer Screening: HPV 05/24/2027 05/24/2022 Cholesterol Screening (Lipid Panel) 02/05/2029 02/06/2024, 02/06/2024 Hepatitis C Screening Completed 12/15/2012 COVID-19 Vaccine Completed 08/13/2024, , 09/05/2021, Additional history exists HIB Vaccines Aged Out [...] Maintenance Results * (ABNORMAL) Hemoglobin A1c (06/12/2024) Pathologist [facility] Hemoglobin A1C 8.6(A) <=6.5 % Blood Venous blood specimen / Unknown us Historical Provider LAB BLOOD ORDERABLES Geno l Result * Annual BMP Blood Test (02/06/2024) Pathologist [facility] Annual BMP Blood Test abstracted us Historical Provider HEALTH MAINTENANCE Final Result * Lipid panel (02/06/2024) [facility] LDL/HDL Ratio 2 0 - 4 Triglycerides 57 0 - 150 mg/dL Cholesterol 173 0 - 200 mg/dL HDL 77 >=40 mg/dL LDL Cholesterol 85 0 - 100 mg/dL Blood Venous blood specimen / Unknown Result [facility] Provider LAB BLOOD ORDERABLES Geno l Result * Diabetes Eye Exam (12/17/2023) [facility] Diabetes: Annual Retina Eye Exam abstracted Result [facility] Provider HEALTH MAINTENANCE Final Result * Urine Albumin Creatinine Ratio (08/19/2023) [facility] Urine Albumin Creatinine Ratio abstracted Result [facility] Provider HEALTH MAINTENANCE Final Result * Cervical Cancer Screening: HPV (05/24/2022) [facility] Cervical Cancer Screening: HPV negative, abstracted Result [facility] Provider HEALTH MAINTENANCE Final Result * Hepatitis C Screening (12/15/2012) [facility] Hepatitis C Screening abstracted Result [facility] Provider HEALTH MAINTENANCE Final Result from Last 3 Months or Most Recently Relevant to Health Maintenance Insurance [facility] Care Teams Laboratory Apparatus Glass Grinder Relationship Specialty Start Date End Date Rika Ramirez PA [address] [place] [address] [phone] PCP - General Physician Disabilities Caregiver 3/24/25
[2025-03-09 11:56] VITALS: BP 180/90
== END 2025-03-09 12:13 | disposition home or self-care (01) ==
LOC: HO.ENCR 10:46
PROVIDERS: PCP Physician Assistant Medical; Visit Provider Student in an Organized Health Care Education/Training Program
DX: E10.8 Type 1 diabetes mellitus with unspecified complications (principal); Z79.4 Long term (current) use of insulin; E78.2 Mixed hyperlipidemia; I10 Essential (primary) hypertension; Z13.9 Encounter for screening, unspecified
CPT/HCPCS: 99205

== ENCOUNTER → 2025-03-09 10:45 | Outpatient (BNVA) | payer OTHER, SELFPAY | PROVIDERS: PCP Physician Assistant Medical; Visit Provider Student in an Organized Health Care Education/Training Program | DX: E10.8 Type 1 diabetes mellitus with unspecified complications (principal) | CPT/HCPCS: 82947; 83036 ==

== ENCOUNTER 2025-04-16 07:08 | Outpatient (REF) | payer OTHER, SELFPAY ==
--- OUTSIDE RECORDS SUMMARY | 2025-04-16 07:11 | XMS_ITS | Clinical Summary ---
Author Organization [facility] [address] [place] [address] Address [address] [place] [address] Phone Care Team Providers Care Tobacco Sample Puller Name Role Phone AshleyRika johnson Rosalinda DORSEY Primary Care Provider [phone] Allergies Active Allergy Reactions Criticality Noted Date [...] 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 ([facility] V24, [facility] V28) 07/10/2017 Tobacco use disorder 06/24/2015 Immunizations [...] 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 ([facility] V24, [facility] V28) 07/10/2017 DX:Type 1 diabetes mellitus with cataract (HCC) Cataract 07/10/2017 DX:Cataract; COM MENT: bilateral Tobacco use disorder 06/24/2015 DX:Tobacco use disorder Family History Medical History Relation Name Comments Breast cancer Aunt maternal Hypertension Father [place] Lung cancer Maternal Grandfather Arthritis Maternal Grandmother Hypertension Mother arthritis Relation Name Status Comments Aunt Father Alive Maternal Grandfather Maternal Grandmother Mother Alive Social History Tobacco Use Types Packs/Day Years Used Date Smoking Tobacco: Every Day Cigarettes 1 42.6 Started: 09/02/1982 Smokeless Tobacco: Never Tobacco Cessation:Ready [...] 4:20 PM EDT Office Visit Endocrinology - [place] [address] [place] [phone] Michelle Lezama PA [address] [place] [address] Health Maintenance Due Date Last Done Comments Breast Cancer Screening 1963 Diabetes: Annual Foot Exam 1973 Zoster Vaccines (1 of 2) 2013 Pneumococcal Vaccine: 50+ Years (2 of 2 - PCV) 09/19/2018 09/19/2017 DTaP,Tdap,and Td Vaccines (2 - Td or Tdap) 04/30/2022 04/30/2012 Colorectal Cancer Screening: Colonoscopy 08/11/2022 HIV Screening 08/11/2022 Lung Cancer Screening (Low Dose CT) 08/11/2022 Social Influencers of Health Screening 08/11/2022 RSV Immunization Adult Patients (1 - Risk 60-74 years 1-dose series) 2023 Diabetes: Annual Urine Albumin-Creatinine Ratio (uACR) 08/19/2024 08/19/2023 Depression Screening 09/02/2024 Diabetes: Blood Sugar Control Test (HGBA1C) 12/11/2024 [...] Results * (ABNORMAL) Hemoglobin A1c (06/12/2024) Pathologist [facility] Hemoglobin A1C 8.6(A) <=6.5 % Blood Venous blood specimen / Unknown us Historical Provider LAB BLOOD ORDERABLES Geno l Result * Annual BMP Blood Test (02/06/2024) Pathologist [facility] Annual BMP Blood Test abstracted us Historical Provider HEALTH MAINTENANCE Final Result * Lipid panel (02/06/2024) [facility] LDL/HDL Ratio 2 0 - 4 Triglycerides 57 0 - 150 mg/dL Cholesterol 173 0 - 200 mg/dL HDL 77 >=40 mg/dL LDL Cholesterol 85 0 - 100 mg/dL Blood Venous blood specimen / Unknown Result [facility] Provider LAB BLOOD ORDERABLES Geno l Result * Diabetes Eye Exam (12/17/2023) [facility] Diabetes: Annual Retina Eye Exam abstracted Result [facility] Provider HEALTH MAINTENANCE Final Result * Urine Albumin Creatinine Ratio (08/19/2023) [facility] Urine Albumin Creatinine Ratio abstracted Result [facility] Provider HEALTH MAINTENANCE Final Result * Cervical Cancer Screening: HPV (05/24/2022) [facility] Cervical Cancer Screening: HPV negative, abstracted Result [facility] Provider HEALTH MAINTENANCE Final Result * Hepatitis C Screening (12/15/2012) [facility] Hepatitis C Screening abstracted Result [facility] Provider HEALTH MAINTENANCE Final Result from Last 3 Months or Most Recently Relevant to Health Maintenance Insurance [facility] Care Teams Tobacco Sample Puller Relationship Specialty Start Date End Date Rika Ramirez PA [address] [place] [address] [phone] PCP - General Physician Recreational Resort Manager 3/24/25
--- OUTSIDE RECORDS SUMMARY | 2025-04-16 07:11 | XMS_ITS | Patient Health Record ---
[facility] Address [address] [facility] [place] [address] Care Team Providers Care Stove Mounter Name Role Phone Rika Ramirez Primary Care Provider Roge Lord Unavailable [phone] Allergies Allergen (clinical drug ingredient) Drug/Non Drug [...] Polyneuropathy due to diabetes mellitus type I (521826614) Type 1 diabetes mellitus with diabetic polyneuropathy (E10.42) Active confirmed Vital Signs Blood pressure diastolic 65 mm Hg 02/16/2025 Height 5 ft 3 in in 02/16/2025 Blood pressure systolic 130 mm Hg 02/16/2025 Weight 180 lbs 02/16/2025 BMI 31.88 kg/m2 02/16/2025 Procedures Procedure Date Ordered Date Performed Result Body Sit e 24640-RDKCHBN NAIL, 1-5 02/16/2025 N/A 14089-VYPC SKIN LESIONS, OVER 4 02/16/2025 N/A A2088-EESFFTNY DYSTROPHIC NAILS ANY # 02/16/2025 N/A Encounters Encounter Location Date Provider Diagnosis [facility] [address] 02/16/2025 Roge Guerra Type 1 diabetes mellitus with diabetic polyneuropathy E10.42 ; Tinea unguium B35.1 ; Pain in left foot M79.672 and Contusion of left foot, initial encounter S90.32XA [facility] [address] 04/08/2025 Roge Guerra Assessments Encounter Date Diagnosis (ICD Code) Assessment [...] X ray : Foot, left 3V 02/16/2025 99860-HRCKGCQ NAIL, 6 OR MORE 12/23/2017 39657-XKEONHN NAIL, 6 OR MORE 05/13/2018 01825-KAISMFL NAIL, 6 OR MORE 05/14/2017 75494-WGZTJUR NAIL, 6 OR MORE 04/26/2015 17348-EPCUYTL NAIL, 6 OR MORE 05/15/2016 71717-ETLKBCS NAIL, 6 OR MORE 09/18/2011 67561-NIXQSGO NAIL, 6 OR MORE 03/18/2012 77174-YDVGBLS NAIL, 6 OR MORE 04/28/2013 01115-IXYSQGT NAIL, 6 OR MORE 04/27/2014 30326-XQBRFKK NAIL, 1-5 02/16/2025 99001-XUOK SKIN LESIONS, OVER 4 02/17/20 25 33709-VEWM SKIN LESIONS, OVER 4 05/19/20 19 68116-CDDW SKIN LESIONS, OVER 4 05/17/20 20 31165-HMKW SKIN LESIONS, OVER 4 05/16/20 21 16728-DWEZ SKIN LESIONS, OVER 4 05/13/20 18 37188-BGXS SKIN LESIONS, OVER 4 04/27/20 14 19860-PDBK SKIN LESIONS, OVER 4 04/28/20 13 31559-NNFU SKIN LESIONS, OVER 4 03/18/20 12 84524-LTXD SKIN LESIONS, OVER 4 09/18/19 12 68921-DEZM SKIN LESIONS, OVER 4 05/15/20 16 54448-SYAH SKIN LESIONS, OVER 4 04/26/20 15 64949-QKJE SKIN LESIONS, OVER 4 12/24/19 18 73991-FMMX SKIN LESIONS, OVER 4 05/14/20 17 N9947-FVNJKTZA DYSTROPHIC NAILS ANY # Next Appt Details Provider Name:Roge Guerra , 06/11/2025 11:00:00 AM, [address] [facility], [place], [address], Insurance Providers Payer Name Payer Address Payer Phone Subscriber Number Group Number Insured Name Patient Relationship to Insured Coverage Start Date Coverage End Date [facility] [address] [address] [place] [address] [id number] Migdalia Kovacs Self - patient is the insured Medical (General) History Medical History History ICD Code chicken pox type I diabetes Hypertension Surgical History Surgery Date(Month/Year) foot surgery Hospitalization History Reason Date(Month/Year) ER visit 05/12/2016 [place] broke shoulder 10/2021
[2025-04-16 10:26] LABS: Hematocrit 40.3 % (37.0-47.0); Hemoglobin 14.0 g/dl (12.0-16.0); Mean Corpuscular HGB Conc 34.7 g/dl (31.0-35.0); Mean Corpuscular Hemoglobin 32.0 pg (27.0-33.0); Mean Corpuscular Volume 92.0 fL (80.0-98.0); NRBC Abs Auto 0.000 X10*3/uL (0.0-0.012); NRBC Pct Auto 0.0 /100WBC (0.0-0.2); Platelet Count 286 X10*3/uL (160-400); Red Blood Count 4.38 X10*6/uL (4.20-5.50); White Blood Count 8.7 X10*3/uL (4.8-10.8)
[2025-04-16 10:50] LABS: Alanine Aminotransferase 11 U/L (0-31); Albumin Level 4.2 g/dL (3.5-5.0); Alkaline Phosphatase 85 U/L (39-117); Anion Gap 13 (12-20); Aspartate Amino Transferase 19 U/L (5-31); Blood Urea Nitrogen 13 mg/dL (9-16); Calcium 9.5 mg/dL (8.4-10.2); Carbon Dioxide 26 mmol/L (22-29); Chloride 102 mmol/L (96-108); Cholesterol 171 mg/dL (<200); Estimated Glomerular Filt Rate > 60; HDL Cholesterol 59 mg/dL (>40); Potassium 4.1 mmol/L (3.3-5.1); Sodium 137 mmol/L (135-145); Total Protein 6.8 g/dL (6.5-8.0); Triglycerides 58 mg/dL (<150)
[2025-04-16 11:02] LABS: Hemoglobin A1C 445.6138 umol/L; Total Hemoglobin (HGBA1C) 5549.2324 umol/L
== END 2025-04-16 07:09 | disposition home or self-care (01) ==
LOC: HO.HMGCLDS 07:08
PROVIDERS: PCP Physician Assistant Medical; Referring Provider Student in an Organized Health Care Education/Training Program; Visit Provider Physician Assistant Medical
DX: Z01.84 Encounter for antibody response examination (principal); E11.9 Type 2 diabetes mellitus without complications; E78.5 Hyperlipidemia, unspecified
CPT/HCPCS: 36415; 80053; 80061; 82570; 83036; 84443; 84681; 85027; 86341

== ENCOUNTER 2025-04-20 08:24 | Outpatient (AMB) | payer OTHER, SELFPAY ==
--- OUTSIDE RECORDS SUMMARY | 2025-04-20 09:07 | XMS_ITS | Clinical Summary ---
Author Organization [facility] [address] [place] [address] Address [address] [place] [address] Phone Care Team Providers Care Shopfitter Name Role Phone AshleyRika johnson Rosalinda DORSEY Primary Care Provider [phone] Allergies Active Allergy Reactions Criticality Noted Date [...] 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 ([facility] V24, [facility] V28) 07/10/2017 Tobacco use disorder [...] 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 ([facility] V24, [facility] V28) 07/10/2017 DX:Type 1 diabetes [...] 4:20 PM EDT Office Visit Endocrinology - [place] [address] [place] [phone] Michelle Lezama PA [address] [place] [address] Health Maintenance Due Date Last Done Comments [...] Results * (ABNORMAL) Hemoglobin A1c (06/12/2024) Pathologist [facility] Hemoglobin A1C 8.6(A) <=6.5 % Blood Venous blood specimen / Unknown us Historical Provider LAB BLOOD ORDERABLES Geno l Result * Annual BMP Blood Test (02/06/2024) Pathologist [facility] Annual BMP Blood Test abstracted us Historical Provider HEALTH MAINTENANCE Final Result * Lipid panel (02/06/2024) [facility] LDL/HDL Ratio 2 0 - 4 Triglycerides 57 0 - 150 mg/dL Cholesterol 173 0 - 200 mg/dL HDL 77 >=40 mg/dL LDL Cholesterol 85 0 - 100 mg/dL Blood Venous blood specimen / Unknown Result [facility] Provider LAB BLOOD ORDERABLES Geno l Result * Diabetes Eye Exam (12/17/2023) [facility] Diabetes: Annual Retina Eye Exam abstracted Result [facility] Provider HEALTH MAINTENANCE Final Result * Urine Albumin Creatinine Ratio (08/19/2023) [facility] Urine Albumin Creatinine Ratio abstracted Result [facility] Provider HEALTH MAINTENANCE Final Result * Cervical Cancer Screening: HPV (05/24/2022) [facility] Cervical Cancer Screening: HPV negative, abstracted Result [facility] Provider HEALTH MAINTENANCE Final Result * Hepatitis C Screening (12/15/2012) [facility] Hepatitis C Screening abstracted Result [facility] Provider HEALTH MAINTENANCE Final Result from Last 3 Months or Most Recently Relevant to Health Maintenance Insurance [facility] Care Teams Shopfitter Relationship Specialty Start Date End Date Rika Ramirez PA [address] [place] [address] [phone] PCP - General Physician Tubing Machine Tender 3/24/25
--- OUTSIDE RECORDS SUMMARY | 2025-04-20 09:07 | XMS_ITS | Patient Health Record ---
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) Active confirmed Vital Signs Blood pressure diastolic 65 mm Hg 02/16/2025 Height 5 ft 3 in in 02/16/2025 Blood pressure systolic 130 mm Hg 02/16/2025 Weight 180 lbs 02/16/2025 BMI 31.88 kg/m2 02/16/2025 Procedures Procedure Date Ordered Date Performed Result Body Sit e 11984-LYAVKRY NAIL, 1-5 02/16/2025 N/A 72202-ERRV SKIN LESIONS, OVER 4 02/16/2025 N/A U7541-FARBQYLV DYSTROPHIC NAILS ANY # 02/16/2025 N/A Encounters Encounter Location Date Provider Diagnosis [facility] [address] 02/16/2025 Roge Guerra Type 1 diabetes mellitus with diabetic polyneuropathy E10.42 ; Tinea unguium B35.1 ; Pain in left foot M79.672 and Contusion of left foot, initial encounter S90.32XA [facility] [address] 04/08/2025 Roge Guerra Assessments Encounter Date Diagnosis [...] X ray : Foot, left 3V 02/16/2025 96038-KBOZZWK NAIL, 6 OR MORE 12/23/2017 52370-IWOUOOZ NAIL, 6 OR MORE 05/13/2018 01079-PTIZMKF NAIL, 6 OR MORE 05/14/2017 52695-GMUWWBS NAIL, 6 OR MORE 04/26/2015 00787-QNYFMFW NAIL, 6 OR MORE 05/15/2016 24028-OUULDXV NAIL, 6 OR MORE 09/18/2011 29661-KAFQTBL NAIL, 6 OR MORE 03/18/2012 82651-STERJSW NAIL, 6 OR MORE 04/28/2013 00585-EEWULNV NAIL, 6 OR MORE 04/27/2014 91766-ZNTHYGG NAIL, 1-5 02/16/2025 51622-TDJK SKIN LESIONS, OVER 4 02/17/20 25 18504-ACAU SKIN LESIONS, OVER 4 05/19/20 19 52342-DJFN SKIN LESIONS, OVER 4 05/17/20 20 47050-VPBS SKIN LESIONS, OVER 4 05/16/20 21 89821-ASJF SKIN LESIONS, OVER 4 05/13/20 18 09018-VQGX SKIN LESIONS, OVER 4 04/27/20 14 05950-PEBB SKIN LESIONS, OVER 4 04/28/20 13 74936-XFEH SKIN LESIONS, OVER 4 03/18/20 12 74459-SBJG SKIN LESIONS, OVER 4 09/18/19 12 99958-WFYE SKIN LESIONS, OVER 4 05/15/20 16 77907-TLRF SKIN LESIONS, OVER 4 04/26/20 15 67655-ZCSU SKIN LESIONS, OVER 4 12/24/19 18 34440-QKWS SKIN LESIONS, OVER 4 05/14/20 17 N7843-XVJSUMAL DYSTROPHIC NAILS ANY # Next Appt Details Provider Name:Roge Guerra , 06/11/2025 11:00:00 AM, [address] [facility], [place], [address], Insurance Providers Payer Name Payer Address Payer Phone Subscriber Number Group Number Insured Name Patient Relationship to Insured Coverage Start Date Coverage End Date [facility] [address] [address] [place] [address] [id number] Migdalia Kovacs Self - patient is the insured Medical (General) History Medical History History ICD Code chicken pox type I diabetes Hypertension Surgical History Surgery Date(Month/Year) foot surgery Hospitalization History Reason Date(Month/Year) ER visit 05/12/2016 Fell broke shoulder 10/2021
--- NOTE | 2025-04-20 09:27 | MHC.AMDMED ---
Intake Intake Visit Reasons: T1DM Restaurant And Bar Manager Required: No Accompanied by: Self / Same As Patient Allergies codeine (CODEINE) Adverse Reaction (Mild, Verified 03/09/25 10:53) NAUSEA & VOMITING HPI Comprehensive Diabetes Asmnt Most Recent Diabetes Results: Microalb/Creat Ratio TNP 04/16/25 Cholesterol, (<200) 171 mg/dL 04/16/25 HDL Cholesterol, (>40) 59 mg/dL 04/16/25 Triglycerides, (<150) 58 mg/dL 04/16/25 Creatinine, (0.5-1.4) 0.79 mg/dL 04/16/25 BUN, (9-16) 13 mg/dL 04/16/25 Sodium, (135-145) 137 mmol/L 04/16/25 Potassium, (3.3-5.1) 4.1 mmol/L 04/16/25 Chloride, (96-108) 102 mmol/L 04/16/25 Carbon Dioxide, (22-29) 26 mmol/L 04/16/25 Calcium, (8.4-10.2) 9.5 mg/dL 04/16/25 AST, (5-31) 19 U/L 04/16/25 ALT, (0-31) 11 U/L 04/16/25 Total Protein, (6.5-8.0) 6.8 g/dL 04/16/25 Albumin, (3.5-5.0) 4.2 g/dL 04/16/25 [facility] Medical History (Updated 03/09/25 @ 12:10 by Tammi Paul MD) HLD (hyperlipidemia) Contusion of left foot Hypoglycemia Fracture Risk Assessment Score (FRAX) indicating greater than 3% risk for hip fracture Osteopenia Tobacco use disorder Closed traumatic displaced fracture of rib Skin rash Pure hypercholesterolemia Obesity with serious comorbidity Diabetes, polyneuropathy Anxiety Type I diabetes with complications Arthritis HTN (hypertension) Family History Mother HTN (hypertension) Thyroid disorder Father HTN (hypertension) Cardiovascular disease Clotting disorder Stomach cancer Alcoholism Sister Primary biliary cholangitis Other High cholesterol Social History Housing: House Alcohol intake: current Patient Tobacco Use Status: Current everyday Tobacco user Cigarette Packs Per Day: 1 Years Smoked: 40 e-Cigarette/Vaping Use: Never Used Second Hand Smoke Exposure: No service: No Current occupational status: employed 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, 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 Current occupational exposures/hazards: No Cognitive needs: No Hearing needs: No Vision needs: Yes (glasses) Assessment & Plan Assessment & Plan (1) Type I diabetes with complications: Code(s): E10.8 - Type 1 diabetes mellitus with unspecified complications Plan: History of type 1 diabetes mellitus, Dx at 28y/o Uses I:CHO 1:15 Correction Factor: 1:50 Lantus 24 units daily Reports she woke up this morning at 49 mg/dL, at bedtime took Humalog 3 units Treated low with a can of coke, Reviewed the following: Signs and symptoms of low blood sugar (happen quickly) Each person's reaction to low blood sugar is different. Learn your own signs and symptoms of when your blood sugar is low. Taking time to write these symptoms down may help you learn your own symptoms of when your blood sugar is low. From milder, more common indicators to most severe, signs and symptoms of low blood sugar include: Feeling shaky Being nervous or anxious Sweating, chills and clamminess Irritability or impatience Confusion Fast heartbeat Feeling lightheaded or dizzy Hunger Nausea Color draining from the skin (pallor) Feeling Sleepy Feeling weak or having no energy Blurred/impaired vision Tingling or numbness in the lips, tongue, or cheeks Headaches Coordination problems, clumsiness Hypoglycemia or blood glucose under 70 use the rule of 15's: If you have your blood glucose meter test your blood glucose, if you do not have your meter still follow below instruction: Keep quick-sugar foods with you at all times.? Take 15 grams of fast acting carbohydrates. Examples are 4 ounces of fruit juice or regular soda pop, 8 ounces fat-free milk, 1 tablespoon of table sugar, honey or corn syrup, jam, one miniature box of raisins, 7-8 gumdrops or Life Savers candy, 4 glucose tablets, and glucose gel.? Retest blood glucose in 15 minutes, if blood glucose is still under 80,repeat rule of 15's. If blood glucose is under 50, take 30 grams of fast acting carbohydrates If you are having hypoglycemia, or insulin reaction, more that a few times a week, call MD or community health educator F/U BG check Patient at visit to set up an insert Steve 3+ with cell phone petra Instructed patient sensors water proof you can shower, or swim do not submerge sensor in water for over 30 minutes Is sensor falls off cannot put back in you need to replace sensor, customer service number given to patient for sensor replacement Sensor placed on the back of right arm Patient left visit with sensor in warmup Reviewed how to interpret trend arrows Discussed lag time between finger stick and sensor data.? Instructed patient the importance of having blood glucometer for backup testing if needed Reviewed delay of CGM from fingersticks Reminded Pt that if symptoms do not match sensor still needs to check fingersticks. Portions of this note were created using voice recognition software, please excuse any words or phrases that may have been misinterpreted. Patient Instructions: Patient instruction: CGM provides information on blood glucose control throughout the day, including hyperglycemia and hypoglycemia. ? Continue to monitor blood glucose as instructed. Follow nutrition guidelines provided. Report any discomfort promptly to health care provider. ?Stay well-hydrated. You can bathe ,shower, swim and exercise while wearing the glucose sensor. Do not submerge glucose sensor in water for more than 30 minutes. Coding Level of Care Code Est Pt Level 1 (52370) Diagnoses Type I diabetes with complications E10.8
== END 2025-04-20 09:31 | disposition home or self-care (01) ==
LOC: HO.ENCR 08:24
PROVIDERS: PCP Physician Assistant Medical; Visit Provider Registered Nurse Diabetes Educator
DX: E10.8 Type 1 diabetes mellitus with unspecified complications (principal)
CPT/HCPCS: 99499

== ENCOUNTER 2025-04-22 07:59 | Outpatient (AMB) | payer OTHER, SELFPAY ==
--- OUTSIDE RECORDS SUMMARY | 2025-04-22 08:03 | XMS_ITS | Clinical Summary ---
Author Organization [facility] [address] [place] [address] Address [address] [place] [address] Phone Care Team Providers Care Beam Sealer Name Role Phone AshleyRika johnson Rosalinda DORSEY Primary Care Provider [phone] Allergies Active Allergy Reactions Criticality Noted Date [...] 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 ([facility] V24, [facility] V28) 07/10/2017 Tobacco use disorder 06/24/2015 Immunizations [...] 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 ([facility] V24, [facility] V28) 07/10/2017 DX:Type 1 diabetes mellitus with cataract (HCC) Cataract 07/10/2017 DX:Cataract; COM MENT: bilateral Tobacco use disorder 06/24/2015 DX:Tobacco use disorder Family History Medical History Relation Name Comments Breast cancer Aunt maternal Hypertension Father ID Lung cancer Maternal Grandfather Arthritis Maternal Grandmother [...] 4:20 PM EDT Office Visit Endocrinology - [place] [address] [place] [phone] Michelle Lezama PA [address] [place] [address] Health Maintenance Due Date Last Done Comments [...] Results * (ABNORMAL) Hemoglobin A1c (06/12/2024) Pathologist [facility] Hemoglobin A1C 8.6(A) <=6.5 % Blood Venous blood specimen / Unknown us Historical Provider LAB BLOOD ORDERABLES Geno l Result * Annual BMP Blood Test (02/06/2024) Pathologist [facility] Annual BMP Blood Test abstracted us Historical Provider HEALTH MAINTENANCE Final Result * Lipid panel (02/06/2024) [facility] LDL/HDL Ratio 2 0 - 4 Triglycerides 57 0 - 150 mg/dL Cholesterol 173 0 - 200 mg/dL HDL 77 >=40 mg/dL LDL Cholesterol 85 0 - 100 mg/dL Blood Venous blood specimen / Unknown Result [facility] Provider LAB BLOOD ORDERABLES Geno l Result * Diabetes Eye Exam (12/17/2023) [facility] Diabetes: Annual Retina Eye Exam abstracted Result [facility] Provider HEALTH MAINTENANCE Final Result * Urine Albumin Creatinine Ratio (08/19/2023) Health system Urine Albumin Creatinine Ratio abstracted Result [facility] Provider HEALTH MAINTENANCE Final Result * Cervical Cancer Screening: HPV (05/24/2022) Health system Cervical Cancer Screening: HPV negative, abstracted Result [facility] Provider HEALTH MAINTENANCE Final Result * Hepatitis C Screening (12/15/2012) Health system Hepatitis C Screening abstracted Result [facility] Provider HEALTH MAINTENANCE Final Result from Last 3 Months or Most Recently Relevant to Health Maintenance Insurance [facility] Care Teams Beam Sealer Relationship Specialty Start Date End Date Rika Ramirez PA [address] [place] [address] [phone] PCP - General Physician Car Runner 3/24/25
--- NOTE | 2025-04-22 08:04 | A.OFFVIS_ITS ---
Vital Signs 3 04/22/25 08:05 Height 5 ft 2.5 in Weight 192 lb 10.944 oz BMI 34.7 BP 156/60 H Blood Pressure Location Lt brachial Position Sitting Pulse 83 Pulse Source Pulse Oximeter Pulse Oximetry (%) 97 Oxygen Delivery Method Room Air Intake Visit Reasons: osteo/hyperparathyroid/post-ablative hypothyroid A Intake Note: Patient present today for Type 2 Diabetes Mellitus Last Diabetic eye exam: 10/2024 Last Podiatry Visit: 03/2025 Random Glucose: 303 mg/dl HgA1C: 9.5% 04/16/25 Ward Supervisor Required: No Accompanied by: Self / Same As Patient Allergies codeine (CODEINE) Adverse Reaction (Mild, Verified 04/22/25 08:08) NAUSEA & VOMITING Medication List - Last Reconciled 04/22/25 by Tammi Paul MD acetone (urine) test (Ketone Urine Test strips) As directed amlodipine 5 mg PO DAILY atorvastatin (Lipitor) 20 mg PO BEDTIME blood-glucose sensor (TabulaStyle Steve 3 Plus Sensor device) Apply 1 new sensor every 15 days as directed to monitor blood glucose continuously. blood-glucose,city planning teacher,cont (FreeStyle Steve 3 [place]) Use daily to monitor blood glucose levels continuously. cholecalciferol (vitamin D3) 50 mcg PO DAILY dextrose (TRUEplus Glucose) 15 grams (32 mL) PO Q15M PRN fluticasone propionate 50 mcg/actuation 2 sprays intranasal DAILY glucagon 3 mg/actuation (Baqsimi) 3 mg intranasal ONCE glucose (Dex4 Glucose Quick Dissolve) 16 grams (4 x 4 gram) PO Q15M PRN insulin aspart U-100 (Novolog FlexPen U-100 Insulin aspart) subcutaneously 3 times a day; up to 14 units three times a day pre meals insulin glargine (Lantus Solostar U-100 Insulin) 24 units (0.24 mL) subcut QPM lisinopril 40 mg PO DAILY pen needle, diabetic (BD Ultra-Fine Short Pen Needle) As directed HPI Comments Details: 60-year-old female with a history of type 1 diabetes mellitus with long-term insulin use coming in today to establish care History of diabetes Was following at [place], last endo visit December or December 2024, wanted to switch care Was diagnosed at age 30, pills were ineffective and she became insulin dependent, TRACEE? Prior therapy: Current regimen: Insulin Novolog 8 to 14 units TID carb ratio ? more like follows, thinks at some point it was 1 unit for every 15, 1 unit for every 50 sensitivity to target to 100 Insulin Lantus 24 units HS Denies any hospitalizations for DKA . Severe hypoglycemic event leading to seizure December 2024. Start having hypoglycemic symptoms when sugars in 50s. Denies any symptoms of hyperglycemia including polyphagia, polyuria, polydipsia. A1c 8.4% POC 03/09/25 A1c 9.5% 04/16/25 Vaccines:got flu shot last season, uptodate on covid vaccine both initial and booster Complications Eye exam: Last eye exam was October 2024, no retinopathy, in Greg , Neuropathy: no history , podiatry : [facility] Dr. Guerra, last seen January 2025 , recent toe injury Kidney disease: no history of kidney disease Macrovascular complications: No history of macrovascular complications. 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 Smoking : half a pack a day for 40 years or so , is not ready to try to quit at this time ALcohol: 2-3 beers here or there No drug use Lives by herself Physical exam General: sitting comfortably in no acute distress HEENT: normocephalic/atraumatic, EOM intact, moist oral mucosa Neck: supple Cardiac: normal heart sounds Pulm: normal breath sounds B/L, no added breath sounds Abd: not distended, no tenderness Extremities: no edema, no signs of myxedema Neuro: AAO x3, Speech: normal, no facial droop, moving all 4 extremities Skin: no rash Foot exam: checked January 2025 intact sensation to monofilament, intact pulses, intact vibration Laboratory Tests 10/17/24 02/05/25 02/05/25 09:15 22:03 22:49 Creatinine 0.88 1.03 Estimated GFR > 60 54 POC Glucose 135 H Random Glucose 259 H Hemoglobin A1c % 8.8 H AST 17 19 ALT 11 14 Albumin 4.2 Triglycerides 48 Cholesterol 175 LDL Cholesterol, Calc 99 HDL Cholesterol 67 02/06/25 01:01 Creatinine Estimated GFR POC Glucose 153 H Random Glucose Hemoglobin A1c % AST ALT Albumin Triglycerides Cholesterol LDL Cholesterol, Calc HDL Cholesterol Laboratory Tests 03/09/25 04/16/25 04/16/25 11:01 07:15 09:20 Hgb 14.0 Hct 40.3 Plt Count 286 Creatinine 0.79 Estimated GFR > 60 Glucose (Clinic) Random Glucose 236 H Estimat Average Glucose 226 Hgb A1c (Clinic) 8.7 H Hemoglobin A1c % 9.5 H C-Peptide 0.18 L Calcium 9.5 AST 19 ALT 11 Triglycerides 58 Cholesterol 171 LDL Cholesterol, Calc 101 H HDL Cholesterol 59 TSH 2.70 Urine Creatinine 77.86 Urine Microalbumin < 5.0 04/22/25 08:15 Hgb Hct Plt Count Creatinine Estimated GFR Glucose (Clinic) 303 H Random Glucose Estimat Average Glucose Hgb A1c (Clinic) Hemoglobin A1c % C-Peptide Calcium AST ALT Triglycerides Cholesterol LDL Cholesterol, Calc HDL Cholesterol TSH Urine Creatinine Urine Microalbumin [facility] Medical History (Updated 03/09/25 @ 12:10 by Tammi Paul MD) HLD (hyperlipidemia) Contusion of left foot Hypoglycemia Fracture Risk Assessment Score (FRAX) indicating greater than 3% risk for hip fracture Osteopenia Tobacco use disorder Closed traumatic displaced fracture of rib Skin rash Pure hypercholesterolemia Obesity with serious comorbidity Diabetes, polyneuropathy Anxiety Type I diabetes with complications Arthritis HTN (hypertension) Family History Mother HTN (hypertension) Thyroid disorder Father HTN (hypertension) Cardiovascular disease Clotting disorder Stomach cancer Alcoholism Sister Primary biliary cholangitis Other High cholesterol Social History Housing: House Alcohol intake: current Patient Tobacco Use Status: Current everyday Tobacco user Cigarette Packs Per Day: 1 Years Smoked: 40 e-Cigarette/Vaping Use: Never Used Second Hand Smoke Exposure: No service: No Current occupational status: employed 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, 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 Current occupational exposures/hazards: No Cognitive needs: No Hearing needs: No Vision needs: Yes (glasses) Physical Exam Vital Signs: Last Vital Signs Pulse 83 04/22/25 08:05 BP 156/60 H 04/22/25 08:05 Pulse Ox 97 04/22/25 08:05 Oxygen Delivery Method Room Air 04/22/25 08:05 BMI result Body Mass Index 34.7 Results Reviewed Results Reviewed: Laboratory Last Values Glucose (Clinic) 303 mg/dL (60-115) H 04/22/25 08:15 Assessment & Plan Assessment & Plan (1) Type I diabetes with complications: Code(s): E10.8 - Type 1 diabetes mellitus with unspecified complications Category: Medical Plan: 60-year-old female with type 1 diabetes mellitus with long-term insulin use coming in today for fup Was diagnosed at the age of 30, per patient she became insulin dependent, question of type 1 versus LAD a? Regardless she is insulin dependent now. Labs from April 2025 showed low C-peptide and a very detectable crista D antibody. Over the past 2-3 years she has had worsened control of her type 1 diabetes mellitus due to multiple deaths in the family including her . A1c 04/16/2025 at 9.5% which is up from POC 03/09/2025: 8.4%, she is on a basal bolus regimen, now she is wearing the Steve 3 +, data shows that overnight sugars are well-controlled. She is having postprandial hyperglycemia. She is also drinking a lot of soda including regular soda every day in the morning, but she is motivated to cut down on that. Plan: -continue Lantus 24 units daily -tighten NovoLog carb ratio to 01:14 from 01:15, continue sensitivity factor of 01:50 -pending appointment with human geography instructor -continue follow up with certified adaptive physical educator -has urine ketone strips -has nasal Baqsimi -hypoglycemia education done -foot examined January 2025 intact sensation to monofilament, warm and well- perfused, follows with a value podiatry regularly -up-to-date on eye visit, no history of retinopathy -follow up in 6-8 weeks -advised to quit smoking, patient is not ready at this time -advised 30 minutes of exercise 5 days a week (2) HLD (hyperlipidemia): Code(s): E78.5 - Hyperlipidemia, unspecified Category: Medical Qualifiers: Hyperlipidemia type: mixed hyperlipidemia Qualified Code(s): E78.2 - Mixed hyperlipidemia Plan: LDL 101 mg/dL from April 2025, she was recently started on atorvastatin 20 mg daily and she has had some issues with the adherence Plan: -continue atorvastatin 20 mg daily with better adherence (3) HTN (hypertension): Code(s): I10 - Essential (primary) hypertension Category: Medical Qualifiers: Hypertension type: primary hypertension Qualified Code(s): I10 - Essential (primary) hypertension Plan: Blood pressure improved today but still above goal. Her PCP recently added amlodipine to her regimen. She is also on lisinopril 40 mg daily. Plan: -continue to monitor blood pressure with blood pressure cuff at home -continue lisinopril 40 mg daily and amlodipine Plan I spent 30 minutes in reviewing the record, seeing the patient and documenting in the medical record. Patient Instructions: Change carb ratio to 1:14 Continue sensitivity factor 1:50 Continue Lantus as it is see the human geography instructor Rule of 15 Treatment for Hypoglycemia (Low blood sugar) If your blood glucose is low (70 and below)*, follow the steps below to treat: Eat or drink something from the list below equal to 15 grams of carbohydrate (carb). Rest for 15 minutes Re-check your blood glucose. If it is still low, (below 70), repeat step 1 above. ? If your next meal is more than an hour away, you will need to eat one carbohydrate choice as a snack to keep your blood glucose from going low again. ?If you can't figure out why you have low blood glucose, call your healthcare provider, as your medicine may need to be adjusted. ?Always carry something with you to treat an insulin reaction. Use food from the list below. ? Foods equal to One Carbohydrate Choice (15 grams of carbohydrate): 3 Glucose ?tablets or 4 Dextrose tablets 4 ounces of fruit juice 5-6 ounces (about 1/2 can) of regular soda such as Coke or Pepsi ? 7-8 gummy or regular Life Savers ? 1 Tbsp. of sugar or jelly NOTE: If your blood sugar is less than 50, double the portion above for a total of 30 gm. ?Carbohydrate. ? Follow meal plan of 45-60 g of consistent carbohydrates at 3 meals each day and 15 g of carbohydrate at 1-2 snacks each day. Coding Level of Care Code Est Pt Level 4 (62824) Complex EM visit Add On G2211 Diagnoses Type I diabetes with complications E10.8 Mixed hyperlipidemia E78.2 Hyperlipidemia type: mixed hyperlipidemia Primary hypertension I10 Hypertension type: primary hypertension Time Spent (min) 30
--- OUTSIDE RECORDS SUMMARY | 2025-04-22 08:04 | XMS_ITS | Patient Health Record ---
[facility] Address [address] [facility] [place] [address] Care Team Providers Care Registered Nurse First Assistant Name Role Phone Rika Ramirez Primary Care Provider Roge Lord Unavailable [phone] Allergies Allergen (clinical drug ingredient) Drug/Non Drug [...] Problem Status W/U Status Risk Notes Problem Type 1 diabetes mellitus with diabetic polyneuropathy (E10.42) Active confirmed Vital Signs Blood pressure diastolic 65 mm Hg 02/16/2025 Height 5 ft 3 in in 02/16/2025 Blood pressure systolic 130 mm Hg 02/16/2025 Weight 180 lbs 02/16/2025 BMI 31.88 kg/m2 02/16/2025 Procedures Procedure Date Ordered Date Performed Result Body Sit e 63173-EUNVENW NAIL, 1-5 02/16/2025 N/A 79294-VLWG SKIN LESIONS, OVER 4 02/16/2025 N/A E6852-VKVHRXTI DYSTROPHIC NAILS ANY # 02/16/2025 N/A Encounters Encounter Location Date Provider Diagnosis [facility] [address] 02/16/2025 Roge Guerra Type 1 diabetes mellitus with diabetic polyneuropathy E10.42 ; Tinea unguium B35.1 ; Pain in left foot M79.672 and Contusion of left foot, initial encounter S90.32XA [facility] [address] 04/08/2025 Roge Guerra Assessments Encounter Date Diagnosis [...] X ray : Foot, left 3V 02/16/2025 24469-OBQTSBG NAIL, 6 OR MORE 12/23/2017 32060-EEAVCDS NAIL, 6 OR MORE 05/13/2018 79428-XUBNLNI NAIL, 6 OR MORE 05/14/2017 09092-MLQFFJR NAIL, 6 OR MORE 04/26/2015 08310-SFJSEVK NAIL, 6 OR MORE 05/15/2016 10047-OJGOTOY NAIL, 6 OR MORE 09/18/2011 36823-RHOEFEQ NAIL, 6 OR MORE 03/18/2012 64601-MMALPCA NAIL, 6 OR MORE 04/28/2013 78154-PMJECPM NAIL, 6 OR MORE 04/27/2014 22659-TLTIUJP NAIL, 1-5 02/16/2025 09385-TEBL SKIN LESIONS, OVER 4 02/17/20 25 64343-PEIQ SKIN LESIONS, OVER 4 05/19/20 19 10202-FXMS SKIN LESIONS, OVER 4 05/17/20 20 77850-NNTJ SKIN LESIONS, OVER 4 05/16/20 21 10927-TOMA SKIN LESIONS, OVER 4 05/13/20 18 91195-MOVV SKIN LESIONS, OVER 4 04/27/20 14 11009-ALCM SKIN LESIONS, OVER 4 04/28/20 13 43876-HLWU SKIN LESIONS, OVER 4 03/18/20 12 53751-VZMY SKIN LESIONS, OVER 4 09/18/19 12 43316-EMXG SKIN LESIONS, OVER 4 05/15/20 16 62916-JPYI SKIN LESIONS, OVER 4 04/26/20 15 05026-VITC SKIN LESIONS, OVER 4 12/24/19 18 44673-BERO SKIN LESIONS, OVER 4 05/14/20 17 P8496-EXWDVPBN DYSTROPHIC NAILS ANY # Next Appt Details Provider Name:Roge Guerra , 06/11/2025 11:00:00 AM, [address] [facility], [place], [address], Insurance Providers Payer Name Payer Address Payer Phone Subscriber Number Group Number Insured Name Patient Relationship to Insured Coverage Start Date Coverage End Date [facility] [id number] [address] [address] [place] [phone] [id number] Migdalia Kovacs Self - patient is the insured Medical (General) History Medical History History ICD Code chicken pox type I diabetes Hypertension Surgical History Surgery Date(Month/Year) foot surgery Hospitalization History Reason Date(Month/Year) ER visit 05/12/2016 [place] broke shoulder 10/2021
[2025-04-22 08:05] VITALS: BP 156/60; PULSE 83; O2SAT 97; BMI 34.7
[2025-04-22 08:18] LABS: Glucose, Whole Blood 303 mg/dL (60-115)
== END 2025-04-22 08:45 | disposition home or self-care (01) ==
PROVIDERS: PCP Physician Assistant Medical; Visit Provider Student in an Organized Health Care Education/Training Program
DX: E10.8 Type 1 diabetes mellitus with unspecified complications (principal); E78.2 Mixed hyperlipidemia; I10 Essential (primary) hypertension
CPT/HCPCS: 99214

== ENCOUNTER → 2025-04-22 07:59 | Outpatient (BNVA) | payer OTHER, SELFPAY | PROVIDERS: PCP Physician Assistant Medical; Visit Provider Student in an Organized Health Care Education/Training Program | DX: E10.8 Type 1 diabetes mellitus with unspecified complications (principal) | CPT/HCPCS: 82947 ==

== ENCOUNTER 2025-05-31 11:13 | Outpatient (AMB) | payer OTHER, SELFPAY ==
--- OUTSIDE RECORDS SUMMARY | 2025-05-21 05:30 | XMS_ITS ---
Author Organization [facility] Address [address] [place] [address] Care Team Providers Care Dynamic Balancer Set Up Worker Name Role Phone Rika Ramirez Primary Care Provider Unavailabl Roge Morelos Unavailable [phone] Encounters Encounter Location Date Provider Diagnosis [address] [address] 05/21/2025 Roge Guerra Plan Of Treatment Next Appt Details Provider Name:Roge Guerra , 07/23/2025 09:30:00 AM, [address] [place] [address], [phone], Progress Notes * Migdalia ARANA ADOB: (60 yo F)Acc No.[id number]:05/21/2025 Progress Note Patient: Gibran Migdalia BURNETTE Provider: Rosalinda Guerra DPM :1965 A ge:60 Y S ex:Female Date:05/21/2025 Address:[address] [place], [place] [address]José Miguel talharosalinda [id number] Pcp:Rika Ramirez Subjective: * Chief Complaints: * * Medical History: Objective: * Vitals: Assessment: Plan: * Treatment: * Images: * The named appointment provid er may or may not be the originator of this progress note, and it is not deemed complete until electronically signed by the appointment provider. Sign off status: Pending * Provider: Rosalinda Guerra DPM Date: 0 05/21/2025 Generated for Fortunato morel/Dionte/Christine on: 05/31/2025 12:44 PM EDT
[2025-05-31 11:22] VITALS: BMI 33.8
--- NOTE | 2025-05-31 11:22 | A.OFFVIS_ITS ---
VS Expanded 05/31/25 11:22 06/07/25 11:34 Height 5 ft 2.5 in 5 ft 2.5 in Weight 188 lb 0.869 oz 188 lb BMI 33.8 33.8 Intake Visit Reasons: T1DM Allergies codeine (CODEINE) Adverse Reaction (Mild, Verified 04/22/25 08:08) NAUSEA & VOMITING Nutrition Presentation Details: Pt presents for MNT for T1DM food frequency fruits: 0-1/d ve x/wk dairy 1-3/d starches > 20/d fish : 0-1/wk Physical activity : ADL carb counting: on and off smoking/etoh--- BS Monitoring Most Recent Diabetes Results: Microalb/Creat Ratio TNP 04/16/25 Cholesterol, (<200) 171 mg/dL 04/16/25 HDL Cholesterol, (>40) 59 mg/dL 04/16/25 Triglycerides, (<150) 58 mg/dL 04/16/25 Creatinine, (0.5-1.4) 0.79 mg/dL 04/16/25 BUN, (9-16) 13 mg/dL 04/16/25 Sodium, (135-145) 137 mmol/L 04/16/25 Potassium, (3.3-5.1) 4.1 mmol/L 04/16/25 Chloride, (96-108) 102 mmol/L 04/16/25 Carbon Dioxide, (22-29) 26 mmol/L 04/16/25 Calcium, (8.4-10.2) 9.5 mg/dL 04/16/25 AST, (5-31) 19 U/L 04/16/25 ALT, (0-31) 11 U/L 04/16/25 Total Protein, (6.5-8.0) 6.8 g/dL 04/16/25 Albumin, (3.5-5.0) 4.2 g/dL 04/16/25 LFF-Nowokxw-Ba.Jeor Equation Height: 5 ft 2.5 in Weight: 188 lb Resting Metabolic Rate: 1378.05 Calculated Activity Level: Sedentary Calories Needed to Maintain Weight: 1653.66 Diagnosis Nutrition problem #1: excessive energy intake As related to (etiology) #1: diagnosis As evidenced by (sign/symptom) #1: widely varied blood sugar [facility] Medical History (Updated 03/09/25 @ 12:10 by Tammi Paul MD) HLD (hyperlipidemia) Contusion of left foot Hypoglycemia Fracture Risk Assessment Score (FRAX) indicating greater than 3% risk for hip fracture Osteopenia Tobacco use disorder Closed traumatic displaced fracture of rib Skin rash Pure hypercholesterolemia Obesity with serious comorbidity Diabetes, polyneuropathy Anxiety Type I diabetes with complications Arthritis HTN (hypertension) Family History Mother HTN (hypertension) Thyroid disorder Father HTN (hypertension) Cardiovascular disease Clotting disorder Stomach cancer Alcoholism Sister Primary biliary cholangitis Other High cholesterol Social History Housing: House Alcohol intake: current Patient Tobacco Use Status: Current everyday Tobacco user Cigarette Packs Per Day: 1 Years Smoked: 40 e-Cigarette/Vaping Use: Never Used Second Hand Smoke Exposure: No service: No Current occupational status: employed 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, 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 Current occupational exposures/hazards: No Cognitive needs: No Hearing needs: No Vision needs: Yes (glasses) Assessment & Plan Assessment & Plan (1) Type I diabetes with complications: Code(s): E10.8 - Type 1 diabetes mellitus with unspecified complications Category: Medical Plan: current wt: 85 kg ( 05/27 ) est kcal needs as per MSJ: 1600 est protein needs as per 1 g/kg BW: 80-90 est fluid needs as per 30 ml/kg BW:2600 Recommended fiber > 12 g /day and gradually increase up to 25-28 g /day or as tolerated Nutrition topics discussed : Reviewed (R), Pt verbalized understanding (V) , not applicable (N/A) R, : Healthy Plate Method Concept: R, : Carbohydrates: food sources of carbohydrates, relationship of carbohydrates to blood glucose, fatty liver GI health. Recommended total amount of carbohydrates per meals and snack. Differences between simple carbohydrates and complex carbohydrates . BEST ACCURACY in carb counting R, V, N/A: Lean protein foods including vegan , vegetarian sources of protein. Benefits of protein (including but not limited to healing, nutritional value , benefits in weight loss, glucose control R -BASIC LOW FAT OPTIons, reviewed relationship of high fat foods and BG levels : Fats : Source of fats, benefits of fats. Difference between saturated and unsaturated fats. Saturated fats and its contribution to inflammation R, V, N/A: Fiber: food sources and role of fiber in the diet (including but not limited to its role as a prebiotic, benefits in constipation, role in IBS , role in glucose control and cholesterol level) R, V, N/A: Hydration: role of hydration and prevention of dehydration or over hydration. Foods and water content. R, V, N/A: Vitamins and Minerals in foods and supplements R, V, N/A: Interpreting food labels, including serving size, macronutrients, vitamins, minerals, allergens, ingredient list , % daily value Patient Instructions: Carb count one of your meals, reducing total carb per meal to 45-60 g , use measuring cups to serve your foods for easiness to carb count, when at home Choose snacks low in carb- see list of options Coding Level of Care Code Nutr Indiv Intake (24640) Diagnoses Type I diabetes with complications E10.8 Time Spent (min) 30
--- OUTSIDE RECORDS SUMMARY | 2025-05-31 12:45 | XMS_ITS | Clinical Summary ---
Author Organization [facility] [address] [place] [address] Address [address] [place] [address] Phone Care Team Providers Care Ginseng Farmer Name Role Phone AshleyRika johnson Rosalinda DORSEY Primary Care Provider [phone] Allergies Active Allergy Reactions Criticality Noted Date [...] 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 ([facility] V24, [facility] V28) 07/10/2017 Tobacco use disorder 06/24/2015 Immunizations Immunization Administration Dates Next Due Influenza Quadravalent, MDCK [...] 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 ([facility] V24, [facility] V28) 07/10/2017 DX:Type 1 diabetes mellitus with cataract (HCC) Cataract 07/10/2017 DX:Cataract; COM MENT: bilateral Tobacco use disorder 06/24/2015 DX:Tobacco use disorder Family History Medical History Relation Name Comments Breast cancer Aunt maternal Hypertension Father [place] Lung cancer Maternal Grandfather Arthritis Maternal Grandmother Hypertension Mother arthritis Relation Name Status Comments Aunt Father Alive Maternal Grandfather Maternal Grandmother Mother Alive Social History Tobacco Use Types Packs/Day Years Used Date Smoking Tobacco: Every Day Cigarettes 1 42.7 Started: 09/02/1982 Smokeless Tobacco: Never Tobacco Cessation:Ready [...] 11/23/2024 4:15 PM EDT Plan of Treatment Health Maintenance Due Date Last Done Comments [...] Results * (ABNORMAL) Hemoglobin A1c (06/12/2024) Pathologist [facility] Hemoglobin A1C 8.6(A) <=6.5 % Blood Venous blood specimen / Unknown Historical Provider LAB BLOOD ORDERABLES Geno l Result * Annual BMP Blood Test (02/06/2024) Pathologist [facility] Annual BMP Blood Test abstracted [facility] Provider HEALTH MAINTENANCE Final Result * Lipid panel (02/06/2024) Pathologist [facility] LDL/HDL Ratio 2 0 - 4 Triglycerides 57 0 - 150 mg/dL Cholesterol 173 0 - 200 mg/dL HDL 77 >=40 mg/dL LDL Cholesterol 85 0 - 100 mg/dL Blood Venous blood specimen / Unknown [facility] Provider LAB BLOOD ORDERABLES Geno l Result * Diabetes Eye Exam (12/17/2023) Pathologist [facility] Diabetes: Annual Retina Eye Exam abstracted Historical Provider HEALTH MAINTENANCE Final Result * Urine Albumin Creatinine Ratio (08/19/2023) Urine Albumin Creatinine Ratio abstracted [facility] Provider MD HEALTH MAINTENANCE Final Result * Cervical Cancer Screening: HPV (05/24/2022) Cervical Cancer Screening: HPV negative, abstracted Result [facility] Provider HEALTH MAINTENANCE Final Result * Hepatitis C Screening (12/15/2012) Hepatitis C Screening abstracted [facility] Provider HEALTH MAINTENANCE Final Result from Last 3 Months or Most Recently Relevant to Health Maintenance Insurance [facility] Care Teams Ginseng Farmer Relationship Specialty Start Date End Date Rika Ramirze PA [address] [place] [id number] PCP - General Physician Advertising Teacher 11/23/24
--- OUTSIDE RECORDS SUMMARY | 2025-05-31 12:45 | XMS_ITS | Patient Health Record ---
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 Name Role Phone Rika Ramirez Primary Care Provider Roge Lord Unavailable [phone] Allergies Allergen (clinical drug ingredient) Drug/Non Drug [...] Polyneuropathy due to diabetes mellitus type I ([id number]) Type 1 diabetes mellitus with diabetic polyneuropathy (E10.42) Active confirmed Vital Signs Blood pressure diastolic 65 mm Hg 02/16/2025 Height 5 ft 3 in in 02/16/2025 Blood pressure systolic 130 mm Hg 02/16/2025 Weight 180 lbs 02/16/2025 BMI 31.88 kg/m2 02/16/2025 Procedures Procedure Date Ordered Date Performed Result Body Sit e 84006-TWJBPXX NAIL, 1-5 02/16/2025 N/A 34771-ACJM SKIN LESIONS, OVER 4 02/16/2025 N/A [id number] DYSTROPHIC NAILS ANY # 02/16/2025 N/A Encounters Encounter Location Date Provider Diagnosis [facility] [address] 02/16/2025 Roge Guerra Type 1 diabetes mellitus with diabetic polyneuropathy E10.42 ; Tinea unguium B35.1 ; Pain in left foot M79.672 and Contusion of left foot, initial encounter S90.32XA [facility] [address] 04/08/2025 Roge Guerra Assessments Encounter Date Diagnosis [...] X ray : Foot, left 3V 02/16/2025 75302-FXNPVCQ NAIL, 6 OR MORE 12/23/2017 99216-WGCMCGY NAIL, 6 OR MORE 05/13/2018 57758-QRQGJPZ NAIL, 6 OR MORE 05/14/2017 02157-BPVUKGV NAIL, 6 OR MORE 04/26/2015 77135-HSICBMT NAIL, 6 OR MORE 05/15/2016 56556-CKSSUTA NAIL, 6 OR MORE 09/18/2011 39425-TBAVSTR NAIL, 6 OR MORE 03/18/2012 53890-NXJFDUV NAIL, 6 OR MORE 04/28/2013 21551-IHMBUKH NAIL, 6 OR MORE 04/27/2014 99977-UGHAWAB NAIL, 1-5 02/16/2025 63990-TKSU SKIN LESIONS, OVER 4 02/17/20 25 22497-JBWB SKIN LESIONS, OVER 4 05/19/20 19 82628-NGTY SKIN LESIONS, OVER 4 05/17/20 20 15829-QYPW SKIN LESIONS, OVER 4 05/16/20 21 82969-MERA SKIN LESIONS, OVER 4 05/13/20 18 16592-DKSN SKIN LESIONS, OVER 4 04/27/20 14 82850-EQTZ SKIN LESIONS, OVER 4 04/28/20 13 35277-QAUS SKIN LESIONS, OVER 4 03/18/20 12 76458-EXDO SKIN LESIONS, OVER 4 09/18/19 12 37469-IMYV SKIN LESIONS, OVER 4 05/15/20 16 00194-LJMS SKIN LESIONS, OVER 4 04/26/20 15 96426-PLDX SKIN LESIONS, OVER 4 12/24/19 18 87259-CLXY SKIN LESIONS, OVER 4 05/14/20 17 U6603-XJYINHQI DYSTROPHIC NAILS ANY # Next Appt Details Provider Name:Roge Guerra , 07/23/2025 09:30:00 AM, [address] [facility], [place], [address], Insurance Providers Payer Name Payer Address Payer Phone Subscriber Number Group Number Insured Name Patient Relationship to Insured Coverage Start Date Coverage End Date [facility]-[address] [address] [address] [place] [address] [id number] Migdalia Kovacs Self - patient is the insured Medical (General) History Medical History History ICD Code chicken pox type I diabetes Hypertension Surgical History Surgery Date(Month/Year) foot surgery Hospitalization History Reason Date(Month/Year) ER visit 05/12/2016 Fell broke shoulder 10/2021
[2025-06-07 11:34] VITALS: BMI 33.8
== END 2025-05-31 12:31 | disposition home or self-care (01) ==
LOC: HO.ENCR 11:14
PROVIDERS: PCP Physician Assistant Medical; Visit Provider Dietitian, Registered
DX: E10.8 Type 1 diabetes mellitus with unspecified complications (principal)

== ENCOUNTER → 2025-05-31 11:13 | Outpatient (BNVA) | payer OTHER, SELFPAY | PROVIDERS: PCP Physician Assistant Medical; Visit Provider Dietitian, Registered | DX: E10.8 Type 1 diabetes mellitus with unspecified complications (principal) | CPT/HCPCS: 97802 ==

== ENCOUNTER 2025-08-11 08:49 | Outpatient (AMB) | payer OTHER, SELFPAY ==
--- NOTE | 2025-08-11 08:57 | MHC.OFFVIS ---
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 cholecalciferol (vitamin D3) 50 mcg PO DAILY dextrose (TRUEplus Glucose) 15 grams (32 mL) PO Q15M PRN fluticasone propionate 50 mcg/actuation 2 sprays intranasal DAILY glucagon 3 mg/actuation (Baqsimi) 3 mg intranasal ONCE glucose (Dex4 Glucose Quick Dissolve) 16 grams (4 x 4 gram) PO Q15M PRN insulin aspart U-100 (Novolog FlexPen U-100 Insulin aspart) subcutaneously 3 times a day; up to 14 units three times a day pre meals insulin glargine (Lantus Solostar U-100 Insulin) 24 units (0.24 mL) subcut QPM lisinopril 40 mg PO DAILY pen needle, diabetic (BD Ultra-Fine Short Pen Needle) As directed HPI Comments Details: 60-year-old female with a history of type 1 diabetes mellitus with long-term insulin use . The patient was last seen by Dr. Paul on 04/22/2025 History of diabetes Was following at [facility], last endo visit December or December 2024, wanted to switch care Was diagnosed at age 30, pills were ineffective and she became insulin dependent, TRACEE? Unfortunately, patient did not bring log book, sensor or glucometer to follow up visit. Her previous Steve was copied into the chart. Checks with Livongo 4X/day No hypoglycemia Current regimen: Insulin Novolog 8 to 14 units TID carb ratio ? more like follows, thinks at some point it was 1 unit for every 15, 1 unit for every 50 sensitivity to target to 100 Insulin Lantus 24 units HS Denies any hospitalizations for DKA . Severe hypoglycemic event leading to seizure December 2024. Start having hypoglycemic symptoms when sugars in 50s. Denies any symptoms of hyperglycemia including polyphagia, polyuria, polydipsia. A1c 8.4% POC 03/09/25 A1c 9.5% 04/16/25 Vaccines:got flu shot last season, uptodate on covid vaccine both initial and booster Complications Eye exam: Last eye exam was October 2024, no retinopathy, in [place] , Neuropathy: no history , podiatry : [facility] Dr. Guerra, last seen January 2025 , recent toe injury Kidney disease: no history of kidney disease Macrovascular complications: No history of macrovascular complications. 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 Smoking : half a pack a day for 40 years or so , is not ready to try to quit at this time ALcohol: 2-3 beers here or there No drug use Lives by herself Laboratory Tests 10/17/24 02/05/25 02/05/25 09:15 22:03 22:49 Creatinine 0.88 1.03 Estimated GFR > 60 54 POC Glucose 135 H Random Glucose 259 H Hemoglobin A1c % 8.8 H AST 17 19 ALT 11 14 Albumin 4.2 Triglycerides 48 Cholesterol 175 LDL Cholesterol, Calc 99 HDL Cholesterol 67 02/06/25 01:01 Creatinine Estimated GFR POC Glucose 153 H Random Glucose Hemoglobin A1c % AST ALT Albumin Triglycerides Cholesterol LDL Cholesterol, Calc HDL Cholesterol Laboratory Tests 03/09/25 04/16/25 04/16/25 11:01 07:15 09:20 Hgb 14.0 Hct 40.3 Plt Count 286 Creatinine 0.79 Estimated GFR > 60 Glucose (Clinic) Random Glucose 236 H Estimat Average Glucose 226 Hgb A1c (Clinic) 8.7 H Hemoglobin A1c % 9.5 H C-Peptide 0.18 L Calcium 9.5 AST 19 ALT 11 Triglycerides 58 Cholesterol 171 LDL Cholesterol, Calc 101 H HDL Cholesterol 59 TSH 2.70 Urine Creatinine 77.86 Urine Microalbumin < 5.0 04/22/25 08:15 Hgb Hct Plt Count Creatinine Estimated GFR Glucose (Clinic) 303 H Random Glucose Estimat Average Glucose Hgb A1c (Clinic) Hemoglobin A1c % C-Peptide Calcium AST ALT Triglycerides Cholesterol LDL Cholesterol, Calc HDL Cholesterol TSH Urine Creatinine Urine Microalbumin [facility] Medical History (Updated 03/09/25 @ 12:10 by Tammi Paul MD) HLD (hyperlipidemia) Contusion of left foot Hypoglycemia Fracture Risk Assessment Score (FRAX) indicating greater than 3% risk for hip fracture Osteopenia Tobacco use disorder Closed traumatic displaced fracture of rib Skin rash Pure hypercholesterolemia Obesity with serious comorbidity Diabetes, polyneuropathy Anxiety Type I diabetes with complications Arthritis HTN (hypertension) Family History Mother HTN (hypertension) Thyroid disorder Father HTN (hypertension) Cardiovascular disease Clotting disorder Stomach cancer Alcoholism Sister Primary biliary cholangitis Other High cholesterol Social History Housing: House Alcohol intake: current Patient Tobacco Use Status: Current everyday Tobacco user Cigarette Packs Per Day: 1 Years Smoked: 40 e-Cigarette/Vaping Use: Never Used Second Hand Smoke Exposure: No service: No Current occupational status: employed 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 Absence of acromegalic features. Neck exam reveals nl size thyroid about 15 gms. No thyroid nodules palpable. No carotid bruits present. Lungs CTA. Heart S1 S2, Reg R/R. No M/R/ G. Skin exam reveals absence of vitiligo or acanthosis nigricans. Abdominal exam reveals Soft NT/ND with NA BS. No organomegaly present. Neck Other: . Extrem Other: Visual exam of foot performed. No ulcerations or open lesions. No onchomycosis, no callouses.Pulses 2 + distally Sensation intact to monofilament exam. Vibratory sensation sensed is decreased with 128 Hz tuning fork Results AMB Hemoglobin A1c AMB Hemoglobin A1c 8.6 % Last Edit by BATSHEVA Yi on 08/11/25 09:22 Results Reviewed Results Reviewed: Laboratory Last Values Glucose (Clinic) 127 mg/dL (60-115) H 08/11/25 09:10 Hgb A1c (Clinic) 8.6 % (4.0-6.0) H 08/11/25 09:14 Assessment & Plan Assessment & Plan (1) Type I diabetes with complications: Code(s): E10.8 - Type 1 diabetes mellitus with unspecified complications Category: Medical Plan: 60-year-old white female with a history of type 1 diabetes being treated with basal-bolus insulin with poor glycemic control and no known microvascular or macrovascular complications. The plan is to have the patient reinitiate the Steve sensor. Can not make any changes to the insulin regimen because of lack of data. Went over the correlation of poor glycemic control to development of progression of complications with the patient. Also discussed possible management with insulin pump and talked about the various different types of pumps. Also spent a great deal of time talking the patient about smoking cessation Orders: Orders AMB Hemoglobin A1c Today E10.8 - Type 1 diabetes mellitus with unspecified complications Coding Level of Care Code Est Pt Level 4 (31982) Diagnoses Type I diabetes with complications E10.8
[2025-08-11 09:01] VITALS: BP 142/72; PULSE 88; O2SAT 97; BMI 34.4
[2025-08-11 09:14] LABS: Glucose, Whole Blood 127 mg/dL (60-115)
== END 2025-08-11 10:13 | disposition home or self-care (01) ==
LOC: HO.ENCR 08:50
PROVIDERS: PCP Physician Assistant Medical; Visit Provider Internal Medicine Endocrinology, Diabetes & Metabolism
DX: E10.8 Type 1 diabetes mellitus with unspecified complications (principal)
CPT/HCPCS: 99214

== ENCOUNTER → 2025-08-11 08:49 | Outpatient (BNVA) | payer OTHER, SELFPAY | PROVIDERS: PCP Physician Assistant Medical; Visit Provider Internal Medicine Endocrinology, Diabetes & Metabolism | DX: E10.8 Type 1 diabetes mellitus with unspecified complications (principal) | CPT/HCPCS: 82947; 83036 ==